=== PATIENT | female | born 1995 | race Hispanic/Latino ===

== ENCOUNTER 2017-11-19 | Emergency (ER) | payer OTHER ==
--- NOTE | 2017-11-19 09:21 | ER ---
Nurse's Notes [facility] Name: Melissa Jacobson Age: 22 yrs Sex: Female : 1995 Arrival Date: 11/19/2017 Time: 08:55 Bed 20 Private MD: Diagnosis: Unspecified otitis externa, bilateral;Otitis media, unspecified, bilateral Presentation: 11/19 09:00 Presenting complaint: Patient states: bilateral ear pain x 5 days. Pt is currently ss taking oral antibiotics and ear drops to treat infection. pt reports that symptoms have not improved. Transition of care: patient was not received from another setting of care. Onset of symptoms was November 15, 2017. Care prior to arrival: None. 09:00 Method Of Arrival: Ambulatory ss 09:00 Acuity: FLAVIO 5 ss Historical: - Allergies: 09:02 No Known Allergies; ss - PMHx: 09:02 None; ss - PSHx: 09:02 None; ss - Immunization history:: Adult Immunizations up to date. - Social history:: Smoking status: Patient/guardian denies using tobacco. Screenin:15 Abuse screen: Denies threats or abuse. Denies injuries from another. Nutritional hb screening: No deficits noted. Tuberculosis screening: No symptoms or risk factors identified. Fall Risk None identified. Assessment: 09:15 General: Appears in no apparent distress. Behavior is calm, cooperative. Pain: Pain hb currently is 7 out of 10 on a pain scale. Neuro: Level of Consciousness is awake, alert, obeys commands, Oriented to person, place, time, situation. Cardiovascular: Capillary refill < 3 seconds Patient's skin is warm and dry. Respiratory: Airway is patent Respiratory effort is even, unlabored, Respiratory pattern is regular, symmetrical. EENT: Reports pain since bilateral ears. Vital Signs: 09:02 BP 137 / 90; Pulse 89; Resp 16; Pulse Ox 100% on R/A; Weight 117.93 kg; Height 5 ft. 4 ss in. (162.56 cm); Pain 9/10; 09:09 BP 139 / 79; Pulse 77; Resp 16; Temp 97.9(O); Pulse Ox 98% on R/A; mh5 09:02 Body Mass Index 44.63 (117.93 kg, 162.56 cm) ss ED Course: 08:55 Patient arrived in ED. as 09:00 Darcy Jones FNP-C [facility]. kb 09:00 Pedrito Tenorio MD is Attending Physician. kb 09:01 Triage completed. ss 09:02 Arm band placed on right wrist. ss 09:04 Tavia Flores, RN is Primary Nurse. hb 09:10 Patient has correct armband on for positive identification. Bed in low position. Call hb light in reach. Side rails up X 1. 09:29 No provider procedures requiring assistance completed. Patient did not have IV access hb during this emergency room visit. Administered Medications: No medications were administered Outcome: :20 Discharge ordered by . kb 09:29 Discharged to home ambulatory, with family. hb 09:29 Condition: stable 09:29 Discharge instructions given to patient, Instructed on discharge instructions, follow up and referral plans. medication usage, Demonstrated understanding of instructions, follow-up care, medications, Prescriptions given X 2. 09:29 Patient left the ED. hb Signatures: Darcy Jones FNP-C FNP-Ckb Martinez, Amelia as Smirch, Shelby, RN RN Tavia Flores, RN RN Julianna Hillman [facility]
--- NOTE | 2017-11-19 09:21 | EDPHYS ---
Physician Documentation [facility] Name: Melissa Jacobson Age: 22 yrs Sex: Female : 1995 Arrival Date: 11/19/2017 Time: 08:55 Bed 20 Private MD: ED Physician Pedrito Tenorio HPI: 11/19 09:16 This 22 yrs old Female presents to ER via Ambulatory with complaints of Ear kb Pain. 09:16 The patient presents with drainage, that is purulent, pain, moderate. The complaints kb affect the right ear and left ear. Onset: The symptoms/episode began/occurred 6 day(s) ago. Modifying factors: The symptoms are alleviated by nothing, the symptoms are aggravated by touching. Associated signs and symptoms: The patient has no apparent associated signs or symptoms. Severity of symptoms: At their worst the symptoms were moderate in the emergency department the symptoms are unchanged. The patient has not experienced similar symptoms in the past. The patient has been recently seen at an urgent care, this week, for similar complaints, was given a prescription for antibiotics. Pt c/o ear pain that started last weekend, started amoxicillin that her mom had at home on Wednesday. Went to urgent care on Wednesday and given ear drops. Comes in today because the pain has persisted. . Historical: - Allergies: 09:02 No Known Allergies; ss - PMHx: 09:02 None; ss - PSHx: 09:02 None; ss - Immunization history:: Adult Immunizations up to date. - Social history:: Smoking status: Patient/guardian denies using tobacco. ROS: 09:16 Constitutional: Negative for fever, chills, and weight loss, Cardiovascular: Negative kb for chest pain, palpitations, and edema, Respiratory: Negative for shortness of breath, cough, wheezing, and pleuritic chest pain, Abdomen/GI: Negative for abdominal pain, nausea, vomiting, diarrhea, and constipation, Back: Negative for injury and pain, : Negative for injury, bleeding, discharge, and swelling, MS/Extremity: Negative for injury and deformity, Skin: Negative for injury, rash, and discoloration, Neuro: Negative for headache, weakness, numbness, tingling, and seizure. 09:16 ENT: Positive for drainage from ear(s), ear pain. Exam: 09:16 Constitutional: This is a well developed, well nourished patient who is awake, alert, kb and in no acute distress. Head/Face: Normocephalic, atraumatic. Neck: Trachea midline, no thyromegaly or masses palpated, and no cervical lymphadenopathy. Supple, full range of motion without nuchal rigidity, or vertebral point tenderness. No Meningismus. Chest/axilla: Normal chest wall appearance and motion. Nontender with no deformity. No lesions are appreciated. Cardiovascular: Regular rate and rhythm with a normal S1 and S2. No gallops, murmurs, or rubs. Normal PMI, no JVD. No pulse deficits. Respiratory: Lungs have equal breath sounds bilaterally, clear to auscultation and percussion. No rales, rhonchi or wheezes noted. No increased work of breathing, no retractions or nasal flaring. Abdomen/GI: Soft, non-tender, with normal bowel sounds. No distension or tympany. No guarding or rebound. No evidence of tenderness throughout. Skin: Warm, dry with normal turgor. Normal color with no rashes, no lesions, and no evidence of cellulitis. MS/ Extremity: Pulses equal, no cyanosis. Neurovascular intact. Full, normal range of motion. Neuro: Awake and alert, GCS 15, oriented to person, place, time, and situation. Cranial nerves II-XII grossly intact. Motor strength 5/5 in all extremities. Sensory grossly intact. Cerebellar exam normal. Normal gait. 09:16 ENT: External ear(s): are unremarkable, Ear canal(s): purulent discharge, that is minimal, that is moderate, bilaterally, swelling, that is minimal, bilaterally, TM's: bulging, bilaterally. Vital Signs: 09:02 BP 137 / 90; Pulse 89; Resp 16; Pulse Ox 100% on R/A; Weight 117.93 kg; Height 5 ft. 4 ss in. (162.56 cm); Pain 9/10; 09:09 BP 139 / 79; Pulse 77; Resp 16; Temp 97.9(O); Pulse Ox 98% on R/A; mh5 09:02 Body Mass Index 44.63 (117.93 kg, 162.56 cm) ss MDM: 09:04 Patient medically screened. kb 09:19 Data reviewed: vital signs, nurses notes. Data interpreted: Pulse oximetry: on room air magdi is 98 %. Interpretation: normal. Counseling: I had a detailed discussion with the patient and/or guardian regarding: the historical points, exam findings, and any diagnostic results supporting the discharge/admit diagnosis, the need for outpatient follow up, an ENT specialist, to return to the emergency department if symptoms worsen or persist or if there are any questions or concerns that arise at home. Administered Medications: No medications were administered Disposition: 10:57 Co-signature as Attending Physician, Pedrito Tenorio MD. rn Disposition: 11/19/17 09:20 Discharged to Home. Impression: Unspecified otitis externa, bilateral, Otitis media, unspecified, bilateral. - Condition is Stable. - Discharge Instructions: Ear Drops, Adult, Otitis Externa, [id number], Otitis Media, Adult, [id number]. - Prescriptions for Augmentin 875- 125 mg Oral Tablet - take 1 tablet by ORAL route every 12 hours for 7 days; 14 tablet. Ciprodex 0.3- 0.1 % Otic Drops, Suspension - instill 4 drop by OTIC route every 12 hours for 7 days , for ears ONLY; 1 Container. - Medication Reconciliation Form, Thank You Letter, Antibiotic Education, Prescription Opioid Use form. - Follow up: Emergency Department; When: As needed; Reason: Worsening of condition. Follow up: Private Physician; When: 2 - 3 days; Reason: Recheck today's complaints, Continuance of care, Re-evaluation by your physician. Signatures: Darcy Jones, HEADER SETUP OPERATOR-C HEADER SETUP OPERATOR-Ckb Pedrito Tenorio MD MD rn Smirch, Shelby, RN RN Tavia Flores RN RN
== END 2017-11-19 09:29 | disposition home or self-care (01) ==
CPT/HCPCS: 99282

== ENCOUNTER 2020-01-09 23:42 | Emergency (ER) | payer BC, OTHER ==
--- NOTE | 2020-01-10 00:22 | EDPHYS ---
Physician Documentation [facility] Name: Melissa Jacobson Age: 24 yrs Sex: Female : 1995 Arrival Date: 01/09/2020 Time: 23:45 Bed 24 Private MD: ED Physician Pedrito Tenorio HPI: 01/08 23:53 This 24 yrs old Female presents to ER via Ambulatory with complaints of Ankle rn Injury. 23:53 The patient presents with an injury, pain. The complaints affect the left ankle. Onset: rn The symptoms/episode began/occurred just prior to arrival. Modifying factors: The symptoms are alleviated by nothing, the symptoms are aggravated by weight bearing, movement. Severity of symptoms: At their worst the symptoms were mild, in the emergency department the symptoms are unchanged. The patient has not experienced similar symptoms in the past. Reports walking, ankle turned inward, reports pain to lateral malleolus and lateral edge of left foot, no other injuries, able to walk on it but hurts. . 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 - Social history:: Smoking status: Patient denies any tobacco usage or history of. - Family history:: not pertinent. - Hospitalizations: : No recent hospitalization is reported. ROS: 23:53 MS/Extremity: + left ankle and foot injury and pain Neuro: Negative for rn weakness/numbness of extremity Exam: 23:53 Constitutional: Overweight female, ambulatory to room without assistance or difficulty rn MS/ Extremity: Pulses equal, no cyanosis. Neurovascular intact. + mild tenderness lateral left malleolus and tenderness along lateral edge of foot, no gross deformity or ecchymosis, no open wounds. Vital Signs: 23:50 BP 132 / 77; Pulse 102; Resp 18; Temp 97.7; Pulse Ox 100% on R/A; Weight 111.13 kg (R); sg Height 5 ft. 4 in. (162.56 cm); Pain 8/10; 23:50 Body Mass Index 42.05 (111.13 kg, 162.56 cm) sg MDM: 23:47 Patient medically screened. rn 01/09 00:19 Differential diagnosis: fracture, sprain. Data reviewed: vital signs, nurses notes, rn radiologic studies, plain films, and as a result, I will discharge patient. Test interpretation: by ED physician or midlevel provider: plain radiologic studies, Xrays of left foot and ankle neg for fracture/dislocation. Counseling: I had a detailed discussion with the patient and/or guardian regarding: the historical points, exam findings, and any diagnostic results supporting the discharge/admit diagnosis, radiology results, the need for outpatient follow up, to return to the emergency department if symptoms worsen or persist or if there are any questions or concerns that arise at home. Special discussion: I discussed with the patient/guardian in detail that at this point there is no indication for admission to the hospital. It is understood, however, that if the symptoms persist or worsen the patient needs to return immediately for re-evaluation. 01/08 23:53 Order name: XRAY Ankle LEFT 3 view rn 01/08 23:53 Order name: XRAY Foot LEFT 3 View rn Administered Medications: No medications were administered Disposition: 01/10/20 00:21 Discharged to Home. Impression: Sprain of ankle, Other sprain of left foot. - Condition is Stable. - Discharge Instructions: Ankle Sprain, Foot Sprain. - Medication Reconciliation Form, Thank You Letter, Antibiotic Education, Prescription Opioid Use form. - Follow up: Private Physician; When: As needed; Reason: Recheck today's complaints, Re-evaluation by your physician. - Problem is new. - Symptoms have improved. Signatures: Dispatcher [employer] EDMS Farhan Potter RN RN sg Nieto, Roman, MD MD rn Stewart, Lisa, RN RN ls4 Corrections: (The following items were deleted from the chart) 00:50 00:21 01/10/2020 00:21 Discharged to Home. Impression: Sprain of ankle; Other sprain of ls4 left foot. Condition is Stable. Forms are Medication Reconciliation Form, Thank You Letter, Antibiotic Education, Prescription Opioid Use. Follow up: Private Physician; When: As needed; Reason: Recheck today's complaints, Re-evaluation by your physician. Problem is new. Symptoms have improved. rn
--- NOTE | 2020-01-10 00:22 | ER ---
Nurse's Notes [facility] Name: Melissa Jacobson Age: 24 yrs Sex: Female : 1995 Arrival Date: 01/09/2020 Time: 23:45 Bed 24 Private MD: Diagnosis: Sprain of ankle;Other sprain of left foot Presentation: 01/08 23:50 Chief complaint: Patient states: I was walking about an hour or two ago when I twisted sg my left ankle. Denies any other pain or injury at this time. Coronavirus screen: Proceed with normal triage. Ebola Screen: Patient negative for fever greater than or equal to 101.5 degrees Fahrenheit, and additional compatible Ebola Virus Disease symptoms Patient denies exposure to infectious person. Patient denies travel to an Ebola-affected area in the 21 days before illness onset. No symptoms or risks identified at this time. Initial Sepsis Screen: Does the patient meet any 2 criteria? HR > 90 bpm. Does the patient have a suspected source of infection? No. Patient's initial sepsis screen is negative. Risk Assessment: Do you want to hurt yourself or someone else? Patient reports no desire to harm self or others. Onset of symptoms was January 09, 2020. 23:50 Method Of Arrival: Ambulatory 23:50 Acuity: FLAVIO 4 sg Triage Assessment: 01/09 00:19 General: Appears in no apparent distress. uncomfortable, Behavior is calm, cooperative. ls4 Pain: Complains of pain in left lateral ankle Pain currently is 8 out of 10 on a pain scale. Quality of pain is described as aching, throbbing, Pain began suddenly. Neuro: No deficits noted. Cardiovascular: No deficits noted. Respiratory: No deficits noted. Musculoskeletal: Circulation, motion, and sensation intact. Capillary refill < 3 seconds, Range of motion: limited in left ankle Swelling present in left lateral ankle. 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 - Social history:: Smoking status: Patient denies any tobacco usage or history of. - Family history:: not pertinent. - Hospitalizations: : No recent hospitalization is reported. Screenin/13 00:23 Abuse screen: Denies threats or abuse. Denies injuries from another. Nutritional ls4 screening: No deficits noted. Tuberculosis screening: No symptoms or risk factors identified. Fall Risk None identified. Assessment: 00:23 General: Appears in no apparent distress. uncomfortable, Behavior is calm, cooperative. ls4 Vital Signs: 01/08 23:50 BP 132 / 77; Pulse 102; Resp 18; Temp 97.7; Pulse Ox 100% on R/A; Weight 111.13 kg (R); sg Height 5 ft. 4 in. (162.56 cm); Pain 8/10; 23:50 Body Mass Index 42.05 (111.13 kg, 162.56 cm) ED Course: 23:45 Patient arrived in ED. cl3 23:47 Pedrito Tenorio MD is Attending Physician. rn 23:50 Arm band placed on. sg 23:51 Triage completed. 01/09 00:16 Patricia Vargas, RN is Primary Nurse. ls4 00:23 Patient has correct armband on for positive identification. Bed in low position. Call ls4 light in reach. Side rails up X 1. Pulse ox on. NIBP on. Verbal reassurance given. 00:24 XRAY Ankle LEFT 3 view In Process Unspecified. EDMS 00:24 No provider procedures requiring assistance completed. Patient did not have IV access ls4 during this emergency room visit. 00:25 XRAY Foot LEFT 3 View In Process Unspecified. EDMS Administered Medications: No medications were administered Outcome: 00:21 Discharge ordered by . rn 00:50 Patient left the ED. ls4 00:50 Discharged to home ambulatory. ls4 00:50 Condition: good 00:50 Discharge instructions given to patient, Instructed on discharge instructions, follow up and referral plans. safety practices, Demonstrated understanding of instructions, follow-up care, medications. Signatures: Dispatcher [employer] EDMS Farhan Potter RN RN Pedrito Tenorio MD MD rn Stewart, Lisa, RN RN ls4 Nilay Vaughan cl3
[2020-01-10 00:56] VITALS: BP 132/77; TEMP 97.7; O2SAT 100
--- NOTE | 2020-01-10 06:58 | RAD REPORT ---
EXAM DESCRIPTION: RAD - Ankle Left 3 View -01/10/2020 12:24 am CLINICAL HISTORY: Left ankle pain FINDINGS: No fracture or dislocation is seen.
--- NOTE | 2020-01-10 08:03 | RAD REPORT ---
EXAM DESCRIPTION: RAD - Foot Left 3 View - 01/10/2020 12:24 am CLINICAL HISTORY: Left Foot pain FINDINGS: No fracture or dislocation is seen.
== END 2020-01-10 00:50 | disposition home or self-care (01) ==
LOC: ER 23:42
DX: S93.492A Sprain of other ligament of left ankle, initial encounter (principal); X58.XXXA Exposure to other specified factors, initial encounter; Y93.01 Activity, walking, marching and hiking; Y92.9 Unspecified place or not applicable
CPT/HCPCS: 99283

== ENCOUNTER 2020-05-13 13:22 | Emergency (ER) | payer BC ==
--- OUTSIDE RECORDS SUMMARY | 2020-05-13 13:24 | XMS REPORT | Summary of Care ---
:1995 Author Organization [facility] Address [address] [place] [address] Care Team Providers Name Role Phone Rafy Turner MD Primary Care Provider Unavailable Reason for Visit Reason Comments Exposure covid19, pt reports loss of smell sensation Cough Sore Throat Other no smell or taste Headache Encounter Details Date Type Department Care Team Description 02/23/[address] [facility] Family Jessi Smith, FABIO [address] [place] [address] [phone] Loss of smell (Primary Dx); [place] [id number], Acute Care Clinic Exposure to Covid-19 Virus; [address] [place] [address] [phone] Allergies No Known Allergiesdocumented as of this encounter (statuses as of 02/23/2020) Medications No known medicationsdocumented as of this encounter (statuses as of 02/23/2020) Active Problems No known active problemsdocumented as of this encounter (statuses as of 02/23/2020) Social History Tobacco Use Types Packs/Day Years Used Date Never Smoker Smokeless Tobacco: Never Used Sex Assigned at Date Recorded Not on file Job Start Date Occupation Industry Not on file Not on file Not on file Travel History Travel Start Travel End No recent travel history available. COVID-19 Exposure Response Date Recorded In the last month, have you been in contact with Yes 02/23/2020 9:49 AM CDT someone who was confirmed or suspected to have Coronavirus / COVID-19? documented as of this encounter Last Filed Vital Signs Vital Sign Reading Time Taken Comments Blood Pressure 146/96 02/23/2020 9:58 AM CDT Pulse 114 02/23/2020 9:58 AM CDT Temperature 36.9 C (98.5 F) 02/23/2020 9:56 AM CDT Respiratory Rate 18 02/23/2020 9:56 AM CDT Oxygen Saturation 99% 02/23/2020 9:56 AM CDT Inhaled Oxygen Concentration - - Weight 108.9 kg (240 lb) 02/23/2020 9:56 AM CDT Height 162.6 cm (5' 4") 02/23/2020 9:56 AM CDT Body Mass Index 41.2 02/23/2020 9:56 AM CDT documented in this encounter Progress Notes Radhika Oscar, FABIO - 02/23/2020 10:20 AM CDT COVID-19 Screening Clinic: [facility] Patient Name: Melissa Jacobson Date of : 1995 24 year old Primary Care Physician: Rafy Turner During this visit: Full PPE was used, mask, face shield, gown, and gloves Chief Complaint Chief Complaint Patient presents with Exposure covid19, pt reports loss of smell sensation Cough Sore Throat Other no smell or taste Headache HPI 24 yr old female who presents to COVID clinic for testing. Pt c/o cough onset last night ago. Pt reports associated symptoms of sore throat headache, nasal congestion loss of smell and taste. Pt deniesany travel in the last 12- 16 weeks. Pt denies exposure to sick contacts. Pt denies exposure to persons with known COVID infection. Pt reports she/he has not been tested for COVID previously. 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 Past Medical History / Immunizations No past medical history on file. Past Surgical History No past surgical history on file. Allergies No Known Allergies Review of Systems Review of Systems Constitutional: Negative for appetite change, chills and fever. HENT: Positive for sore throat. Negative for congestion and rhinorrhea. Respiratory: Positive for cough. Negative for chest tightness and shortness of breath. Cardiovascular: Negative for chest pain. Gastrointestinal: Negative for nausea and vomiting. Musculoskeletal: Negative for myalgias. Neurological: Positive for headaches. All other systems reviewed and are negative. Sick Contacts: contacts with similar symptoms - no Physical Exam BP (!) 146/96 | Pulse 114 | Temp 36.9 C (98.5 F) | Resp 18 | Ht 5' 4" (1.626 m) | Wt 240 lb(108.9 kg) | SpO2 99% | BMI 41.20 kg/m Physical Exam Constitutional: She is oriented to person, place, and time. Vital signs are normal. She appears well-developed and well-nourished. She is cooperative. Non- toxic appearance. She does not have a sickly appearance. She does not appear ill. No distress. HENT: Right Ear: Hearing, tympanic membrane, external ear and ear canal normal. Left Ear: Hearing, tympanic membrane, external ear and ear canal normal. Nose: Mucosal edema present. Right sinus exhibits no maxillary sinus tenderness and no frontal sinustenderness. Left sinus exhibits no maxillary sinus tenderness and no frontal sinus tenderness. Mouth/Throat: Uvula is midline, oropharynx is clear and moist and mucous membranes are normal. No oropharyngeal exudate or posterior oropharyngeal erythema. Tonsils are 3+ on the right. Tonsils are 3+ on the left. No tonsillar exudate. Eyes: Pupils are equal, round, and reactive to light. Conjunctivae and EOM are normal. Neck: Normal range of motion. Neck supple. Cardiovascular: Normal rate. Pulmonary/Chest: Effort normal and breath sounds normal. No accessory muscle usage. No apnea, no tachypnea and no bradypnea. No respiratory distress. She has no decreased breath sounds. She has no wheezes. She has no rhonchi. She has no rales. She exhibits no tenderness. Musculoskeletal: Normal range of motion. Neurological: She is alert and oriented to person, place, and time. Skin: Skin is warm and dry. Capillary refill takes less than 2 seconds. No rash noted. She is not diaphoretic. Psychiatric: She has a normal mood and affect. Her behavior is normal. Judgment and thought content normal. Nursing note and vitals reviewed. No final results containing an impression from the past 2 days were found. No results found for this or any previous visit. Labs No results found for this or any previous visit (from the past 24 hour(s)). No results found. Orders and Treatments Orders Placed This Encounter Procedures COVID-19 (PCR MOLECULAR TESTING) POCT GRP A STREP (MOLECULAR) No outpatient encounter medications on file as of 02/23/2020. No results found for this visit on 02/23/20. Diagnosis Patient well appearing, NAD noted on exam Patient speaking in complete sentences on exam. Physical exam otherwise unremarkable Vital signs WNL Melissa was seen today for exposure, cough, sore throat, other and headache. Diagnoses and all orders for this visit: Loss of smell - COVID-19 (PCR MOLECULAR TESTING); Future - COVID-19 (PCR MOLECULAR TESTING) Exposure to Covid-19 Virus - COVID-19 (PCR MOLECULAR TESTING); Future - COVID-19 (PCR MOLECULAR TESTING) Sore throat - POCT GRP A STREP (MOLECULAR) Disposition & Follow Up - Discussed likely viral diagnosis and treatment plan with pt. - pt advised on frequent effective handwashing - pt advised to increase fluid intake - advised to have the pt take OTC to treat symptoms. - Pt advised to administer Tylenol as per label recommendation as needed for pain or fever - AVS and Written/handout materials appropriate to problem and teaching provided. - advised to go to the nearest Emergency Department sooner for any new, worsening, persistent, or concerning symptoms - Patient verbalized understanding of all instructions EDUCATION: Handouts given: Patient educated on plan of care for visit, swabbing technique,risks and benefits of test and lengthof time to receive results. Verbal consent obtained to perform test. CDC Fact Sheet for patients nCoV Diagnostic Panel dated 11/12/2019 provided. "What to do if you are sick with COVID-19" CDC information guide reviewed with the patient and handout given to patient Education given to self quarantine until results are back. Will notify patient with results. Patient states understanding and all questions answered. Plan of care, goals and medications discussed with patient. Patient voices understanding. Barriers to care: none Ability to manage care: good This visit did not involve counseling and coordination that comprised more than 50% of the visit time. FABIO Sharma 02/23/2020 10:06 AM documented in this encounter Plan of Treatment Name Type Priority Associated Diagnoses Order S chedule COVID-19 (PCR MOLECULAR LAB Routine Loss of smell Expected: 02/23/2020, TESTING) Exposure to Covid-19 Expires : 02/22/2021 Virus Health Maintenance Due Date Last Done Comments VARICELLA VACCINES (1 of 2 - 2-dose 1998 childhood series) MENINGOCOCCAL B VACCINES (1 of 2 - 2007 Risk Bexsero 2-dose series) DTaP,Tdap,and Td Vaccines (1 - 2008 Tdap) HPV VACCINES (1 - Female 2-dose 2008 series) Depression Screening 2009 CHLAMYDIA SCREENING 2013 PAP SMEAR 2018 INFLUENZA VACCINE (Season Ended) 2020 MENINGOCOCCAL VACCINE Aged Out No longer eligible based on patient's age to complete this topic PNEUMOCOCCAL 0-64 YEARS COMBINED Aged Out No longer eligible based on SERIES patient's age to complete this topic documented as of this encounter Procedures Procedure Name Priority Date/Time Associated Diagnosis Comme nts POCT GRP A STREP Routine 02/23/2020 Sore throat Results for this (MOLECULAR) procedure are i n the results section . documented in this encounter Results POCT GRP A STREP (MOLECULAR) (02/23/2020) Pathologist Sig nature POCT GP A STREP neg Negative - Negative Specimen Swab - THROAT documented in this encounter Visit Diagnoses Diagnosis Loss of smell - Primary Disturbances of sensation of smell and t aste Exposure to Covid-19 Virus Sore throat Acute pharyngitis documented in this encounter Insurance Payer Benefit Plan Subscriber ID Effective Dates Phone Address Type / Group BCBS OF [facility] [id number] 2018-Prese [phone] [address] [place] [id number] [place] [address] documented as of this encounter
--- OUTSIDE RECORDS SUMMARY | 2020-05-13 13:24 | XMS REPORT | Continuity of Care Document ---
:1995 Author Organization [facility] t Address [address] [place] [address] Care Team Providers Name Role Phone Mitesh Mulligan Attending Clinician Pob1, Care Clinic Attending Clinician Unavailable Provider, Urgent Care Attending Clinician Unavailable Problems This patient has no known problems. Allergies, Adverse Reactions, Alerts This patient has no known allergies or adverse reactions. Medications This patient has no known medications. Procedures This patient has no known procedures. Encounters Start End Encounter Admission Attending Care Care Encounter Source Date/Time Date/Time Type Type Clinicians Facility Department ID 2020-02-25 2020-02-25 Telephone HOLLY Arias [id number] 00:00:00 00:00:00 Claritza TATE [id number] [facility] [id number] 2020-02-23 2020-02-23 Urgent Pob1, Acute [facility] [id number] 09:48:47 10:24:57 Care [facility] [id number] [place] [id number] Professio [phone] nal [address] 2020-02-01 2020-02-02 Urgent Provider, [facility] [id number] 15:19:08 09:58:50 Care [facility] Health [id number] Care [place] [id number] Professio [phone] nal [address] Results This patient has no known results.
--- OUTSIDE RECORDS SUMMARY | 2020-05-13 13:24 | XMS REPORT | Summary of Care ---
:1995 Author Organization [facility] Address [address] [place] [address] Care Team Providers Name Role Phone Rafy Turner MD Primary Care Provider Unavailable Reason for Visit Reason Comments Results COVID-19 Result notification Encounter Details Date Type Department Care Team Description 02/25/2020 Telephone [facility] Claritza Arias PA Results (COVID-[address] [place] [address] D R Result notification) [place] [address] [phone] Allergies No Known Allergiesdocumented as of this encounter (statuses as of 02/25/2020) Medications No known medicationsdocumented as of this encounter (statuses as of 02/25/2020) Active Problems No known active problemsdocumented as of this encounter (statuses as of 02/25/2020) Social History Tobacco Use Types Packs/Day Years [...] of this encounter Last Filed Vital Signs Not on filedocumented in this encounter Plan of Treatment Health Maintenance Due Date Last Done Comments [...] this topic documented as of this encounter Results Not on filedocumented in this encounter Additional Health Concerns Infection Onset Date Last Indicated Resolved Time COVID-19 Confirmed 02/25/2020 02/25/2020 documented as of this encounter Insurance Payer Benefit Plan Subscriber ID Effective Dates Phone Address Type / Group BCBS OF [facility] [id number] 2018-Prese [phone] [address] PPO/POS [facility] [id number] [place] [address] documented as of this encounter
--- NOTE | 2020-05-13 14:24 | EDPHYS ---
Physician Documentation [facility] Name: Melissa Jacobson Age: 24 yrs Sex: Female : 1995 Arrival Date: 05/13/2020 Time: 13:24 Bed 6 Private MD: Bhaskar Foss HPI: 05/13 13:41 This 24 yrs old Female presents to ER via Ambulatory with complaints of pm1 Spitting up blood. 13:41 Onset: The symptoms/episode began/occurred today. Associated signs and symptoms: pm1 Pertinent positives: post nasal drip. The patient has not experienced similar symptoms in the past. The patient has not recently seen a physician. Patient with a history of frequent nose bleeds. Patient reports sensation of post nasal drip sensation on the left side. 4 times she would clear her throat and spit up some blood in spit. Her employer sent her here for evalution. 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 - Social history:: Smoking status: Patient denies any tobacco usage or history of. ROS: 13:41 Constitutional: Negative for fever, chills, and weight loss, Eyes: Negative for injury, pm1 pain, redness, and discharge. 13:41 Neck: Negative for injury, pain, and swelling, Cardiovascular: Negative for chest pain, palpitations, and edema. 13:41 Respiratory: Negative for shortness of breath, cough, wheezing, and pleuritic chest pain, Abdomen/GI: Negative for abdominal pain, nausea, vomiting, diarrhea, and constipation, Back: Negative for injury and pain, MS/Extremity: Negative for injury and deformity, Skin: Negative for injury, rash, and discoloration, Neuro: Negative for headache, weakness, numbness, tingling, and seizure. 13:41 ENT: Positive for post nasal drainage, Negative for ear pain, sinus congestion, sinus pain, sore throat. Exam: 13:41 Constitutional: This is a well developed, well nourished patient who is awake, alert, pm1 and in no acute distress. Head/Face: Normocephalic, atraumatic. Eyes: Pupils equal round and reactive to light, extra-ocular motions intact. Lids and lashes normal. Conjunctiva and sclera are non-icteric and not injected. Cornea within normal limits. Periorbital areas with no swelling, redness, or edema. ENT: Nares patent. No nasal discharge, no septal abnormalities noted. Tympanic membranes are normal and external auditory canals are clear. Oropharynx with no redness, swelling, or masses, exudates, or evidence of obstruction, uvula midline. Mucous membranes moist. Neck: Trachea midline, no thyromegaly or masses palpated, and no cervical lymphadenopathy. Supple, full range of motion without nuchal rigidity, or vertebral point tenderness. No Meningismus. 13:41 Skin: Warm, dry with normal turgor. Normal color with no rashes, no lesions, and no evidence of cellulitis. MS/ Extremity: Pulses equal, no cyanosis. Neurovascular intact. Full, normal range of motion. 13:41 Cardiovascular: Exam negative for acute changes, Rate: normal, Rhythm: regular, Pulses: no pulse deficits are appreciated. 13:41 Respiratory: Exam negative for acute changes, respiratory distress, shortness of breath. 13:41 Neuro: Exam negative for acute changes, Orientation: is normal, Mentation: is normal, Motor: is normal, moves all fours. Vital Signs: 13:36 BP 136 / 84; Pulse 94; Resp 16 S; Temp 97.3(TE); Pulse Ox 100% on R/A; Weight 117.93 kg ca1 (R); Height 5 ft. 4 in. (162.56 cm) (R); Pain 0/10; 13:36 Body Mass Index 44.63 (117.93 kg, 162.56 cm) ca1 MDM: 13:41 Patient medically screened. pm1 14:22 Data reviewed: vital signs. Data interpreted: Pulse oximetry: on room air is 100 %. pm1 Interpretation: normal. Counseling: I had a detailed discussion with the patient and/or guardian regarding: the historical points, exam findings, and any diagnostic results supporting the discharge/admit diagnosis, the need for outpatient follow up, for definitive care, an ENT specialist, to return to the emergency department if symptoms worsen or persist or if there are any questions or concerns that arise at home. Administered Medications: No medications were administered Disposition: 05/14 08:23 Co-signature as Attending Physician, Bhaskar Thomson MD I agree with the assessment and [facility] plan of care. Disposition: 05/13/20 14:23 Discharged to Home. Impression: Epistaxis. - Condition is Stable. - Discharge Instructions: Nosebleed, Adult. - Medication Reconciliation Form, Thank You Letter, Antibiotic Education, Prescription Opioid Use, Work release form form. - Follow up: Emergency Department; When: As needed; Reason: Worsening of condition. Follow up: Private Physician; When: 2 - 3 days; Reason: Recheck today's complaints, Continuance of care, Re-evaluation by your physician. - Problem is new. - Symptoms have improved. Signatures: Bhaskar Thomson MD MD cha Marinas, Patrick, AIRCRAFT DE [employer]ER INSTALLER [employer] INSTALLER pm1 Franck Coon, RN RN jl7 Jennifer Valencia RN RN ca1 Corrections: (The following items were deleted from the chart) 05/13 14:53 14:23 05/13/2020 14:23 Discharged to Home. Impression: Epistaxis. Condition is Stable. jl7 Forms are Medication Reconciliation Form, Thank You Letter, Antibiotic Education, Prescription Opioid Use. Follow up: Emergency Department; When: As needed; Reason: Worsening of condition. Follow up: Private Physician; When: 2 - 3 days; Reason: Recheck today's complaints, Continuance of care, Re-evaluation by your physician. Problem is new. Symptoms have improved. pm1
--- NOTE | 2020-05-13 14:24 | ER ---
Nurse's Notes [facility] Name: Melissa Jacobson Age: 24 yrs Sex: Female : 1995 Arrival Date: 05/13/2020 Time: 13:24 Bed 6 Private MD: Diagnosis: Epistaxis Presentation: 05/13 13:36 Chief complaint: Patient states: Spitting up blood since x 3 since last night. Denies ca1 cough, denies blood with sputum. Denies bleeding gums, tooth cavity. Denies throat pain or difficulty swallowing. Denies nosebleed. Coronavirus screen: Client denies travel out of the [place] in the last 14 days. At this time, the client does not indicate any symptoms associated with coronavirus-19. Ebola Screen: Patient negative for fever greater than or equal to 101.5 degrees Fahrenheit, and additional compatible Ebola Virus Disease symptoms Patient denies exposure to infectious person. Patient denies travel to an Ebola-affected area in the 21 days before illness onset. No symptoms or risks identified at this time. Initial Sepsis Screen: Does the patient meet any 2 criteria? No. Patient's initial sepsis screen is negative. Does the patient have a suspected source of infection? No. Patient's initial sepsis screen is negative. Risk Assessment: Do you want to hurt yourself or someone else? Patient reports no desire to harm self or others. Onset of symptoms was May 13, 2020. 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 - Social history:: Smoking status: Patient denies any tobacco usage or history of. Screenin:00 Abuse screen: Denies threats or abuse. Denies injuries from another. Nutritional jl7 screening: No deficits noted. Tuberculosis screening: No symptoms or risk factors identified. Fall Risk None identified. Assessment: 14:00 General: Appears in no apparent distress. uncomfortable, Behavior is calm, cooperative, jl7 appropriate for age. Pain: Denies pain. Neuro: Level of Consciousness is awake, alert, obeys commands, Oriented to person, place, time, situation. Cardiovascular: Denies chest pain, Patient's skin is warm and dry. Respiratory: Airway is patent Respiratory effort is even, unlabored, Respiratory pattern is regular, symmetrical, Denies shortness of breath. GI: No signs and/or symptoms were reported involving the gastrointestinal system. Patient currently denies abdominal pain, diarrhea, nausea, vomiting. : No signs and/or symptoms were reported regarding the genitourinary system. Denies burning with urination. EENT: Nares are clear bilaterally Oral mucosa is moist. Good dentition noted. Throat is clear is pink. Derm: Skin is pink, warm \T\ dry. Musculoskeletal: No signs and/or symptoms reported regarding the musculoskeletal system. Vital Signs: 13:36 BP 136 / 84; Pulse 94; Resp 16 S; Temp 97.3(TE); Pulse Ox 100% on R/A; Weight 117.93 kg ca1 (R); Height 5 ft. 4 in. (162.56 cm) (R); Pain 0/10; 13:36 Body Mass Index 44.63 (117.93 kg, 162.56 cm) ca1 ED Course: 13:24 Patient arrived in ED. ag5 13:38 Triage completed. ca1 13:39 Arm band placed on right wrist. ca1 13:41 Franck Coon RN is Primary Nurse. jl7 13:41 Primo Arcos NP is PHCP. pm1 13:41 Bhaskar Thomson MD is Attending Physician. pm1 14:00 Patient has correct armband on for positive identification. Bed in low position. Call jl7 light in reach. Side rails up X 1. Warm blanket given. 14:53 No provider procedures requiring assistance completed. Patient did not have IV access jl7 during this emergency room visit. Administered Medications: No medications were administered Outcome: 14:23 Discharge ordered by . pm1 14:53 Discharged to home ambulatory. jl7 14:53 Condition: stable 14:53 Discharge instructions given to patient, Instructed on discharge instructions, follow up and referral plans. Demonstrated understanding of instructions, follow-up care. 14:53 Patient left the ED. jl7 Signatures: Primo Arcos NP SAMPLE HAND pm1 Franck Coon RN RN jl7 Jennifer Valencia, RN RN ca1 Lewis, Bobbi ag5
[2020-05-13 15:34] VITALS: BP 136/84; TEMP 97.3; O2SAT 100
== END 2020-05-13 14:53 | disposition home or self-care (01) ==
LOC: ER 13:22
DX: R04.0 Epistaxis (principal)
CPT/HCPCS: 99281

== ENCOUNTER 2021-07-08 23:55 | Observation (INO) | payer BC ==
[2021-07-09 00:40] LABS: Urine Blood 1+ (Negative); Urine Glucose Negative (Negative); Urine Protein Negative (Negative); Urine Specific Gravity 1.025 (1.005-1.030); Urine pH 6.5 (5.0-7.0)
[2021-07-09 00:47] LABS: Absolute Lymphocytes (CBC) 1.9 K/uL (0.7-4.9); Basophils % 0.6 % (0-1.3); Lymphocytes % 16.7 % (15.3-44.8); MPV 7.9 fL (7.6-11.3); RBC Red Blood Cell Count 4.88 M/uL (3.86-4.86)
[2021-07-09 00:50] LABS: Urine Specific Gravity/Preg 1.025 (1.005-1.030)
[2021-07-09 01:00] LABS: ALT/SGPT 27 U/L (12-78); AST/SGOT 14 U/L (15-37); Albumin 3.1 g/dL (3.4-5.0); Alkaline Phosphatase 109 U/L (45-117); BUN Blood Urea Nitrogen 13 mg/dL (7-18); Bicarbonate 24 mmol/L (21-32); Bilirubin Direct < 0.1 mg/dL (0-0.2); Bilirubin Total 0.2 mg/dL (0.2-1.0); Glucose Level 98 mg/dL (74-106); Lipase 72 U/L (73-393); Potassium 3.5 mmol/L (3.5-5.1); Protein, Total 8.1 g/dL (6.4-8.2); Sodium Level 141 mmol/L (136-145)
[2021-07-09] MEDS ORDERED: MORPHINE 4 MG/ML SYR ONE ×3 (02:10→10:27)
[2021-07-09] MEDS ORDERED: ONDANSETRON 4 MG/2 ML VIAL ONE (02:10)
--- NOTE | 2021-07-09 02:17 | EDPHYS ---
Physician Documentation [facility] Name: Melissa Jacobson Age: 25 yrs Sex: Female : 1995 Arrival Date: 07/08/2021 Time: 23:58 Bed 26 Private MD: ED Physician Brittney Gan HPI: 07/09 02:13 This 25 yrs old Female presents to ER via Ambulatory with complaints of jmm Abdominal Pain. 02:13 The patient presents with abdominal pain. Onset: The symptoms/episode began/occurred jmm today. The symptoms do not radiate. Associated signs and symptoms: Pertinent negatives: fever, vaginal discharge. The symptoms are described as achy. This is a 25-year-old female with no chronic medical conditions presents emerged part with complaints of right lower abdominal pain beginning earlier today. Denies vomiting or diarrhea. Patient has states she did have a sensation that she needed to urinate but was unable to.. 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 - Social history:: Smoking status: Patient denies any tobacco usage or history of. Patient/guardian denies using alcohol, street drugs. ROS: 02:13 Constitutional: Negative for fever, chills, and weight loss, Cardiovascular: Negative jmm for chest pain, palpitations, and edema, Respiratory: Negative for shortness of breath, cough, wheezing, and pleuritic chest pain. 02:13 Abdomen/GI: Positive for abdominal pain. 02:13 All other systems are negative. Exam: 02:13 Constitutional: This is a well developed, well nourished patient who is awake, alert, jmm and in no acute distress. Head/Face: atraumatic. Eyes: EOMI, no conjunctival erythema appreciated ENT: Moist Mucus Membranes Neck: Trachea midline, Supple Chest/axilla: Normal chest wall appearance and motion. Cardiovascular: Regular rate and rhythm. No edema appreciated Respiratory: Normal respirations, no respiratory distress appreciated 02:13 Skin: General appearance color normal MS/ Extremity: Moves all extremities, no obvious deformities appreciated, no edema noted to the lower extremities Neuro: Awake and alert, normal gait Psych: Behavior is normal, Mood is normal, Patient is cooperative and pleasant 02:13 Abdomen/GI: Inspection: abdomen appears normal, Bowel sounds: normal, Palpation: soft, moderate abdominal tenderness, in the right lower quadrant. Vital Signs: 00:11 BP 133 / 76; Pulse 70; Resp 16 S; Temp 98.3(O); Pulse Ox 98% on R/A; Weight 127.01 kg bb (R); Height 5 ft. 4 in. (162.56 cm) (R); Pain 7/10; 02:00 BP 136 / 52; Pulse 87; Resp 18; Pulse Ox 99% on R/A; Pain 8/10; dc2 00:11 Body Mass Index 48.06 (127.01 kg, 162.56 cm) bb MDM: 00:11 Patient medically screened. [facility] 02:14 Data reviewed: vital signs, nurses notes. Counseling: I had a detailed discussion with meghann the patient and/or guardian regarding: the historical points, exam findings, and any diagnostic results supporting the discharge/admit diagnosis, lab results, radiology results, the need for further work-up and treatment in the hospital. ED course: Patient continues to have some right lower quadrant abdominal pain on palpation. I discussed the patient with who will observe the patient.. 07/09 00:12 Order name: Basic Metabolic Panel [facility] 07/09 00:12 Order name: CBC with Diff [facility] 07/09 00:12 Order name: Hepatic Function [facility] 07/09 00:12 Order name: Lipase; Complete Time: 01: [facility] 07/09 00:12 Order name: Basic Metabolic Panel; Complete Time: 01:00 [facility] 07/09 00:12 Order name: CBC with Automated Diff; Complete Time: 01:00 [facility] 07/09 00:13 Order name: Liver (Hepatic) Function; Complete Time: 01:00 [facility] 07/09 00:40 Order name: Urine Dipstick-Ancillary; Complete Time: 00:45 [facility] 07/09 00:41 Order name: Urine --Ancillary (enter results); Complete Time: 01:00 [facility] 07/09 02:20 Order name: SARS-COV-2 RT PCR (Document "Date of Onset" if Symptomatic) [facility] 07/09 02:20 Order name: SARS-COV-2 RT PCR [facility] 07/09 02:25 Order name: CREATININE WHOLE BLOOD [facility] 07/09 02:43 Order name: Basic Metabolic Panel [facility] 07/09 02:43 Order name: Basic Metabolic Panel [facility] 07/09 00:12 Order name: IV Saline Lock; Complete Time: 00:34 [facility] 07/09 00:12 Order name: Labs collected and sent; Complete Time: 00:34 [facility] 07/09 00:12 Order name: Urine Test (obtain specimen); Complete Time: 00:34 [facility] 07/09 00:12 Order name: Urine Dipstick-Ancillary (obtain specimen); Complete Time: 00:34 [facility] 07/09 00:13 Order name: CT Abd/Pelvis - IV Contrast Only [facility] 07/09 01:58 Order name: Pelvic Exam Setup; Complete Time: 02:40 [facility] 07/09 02:43 Order name: NPO; Complete Time: 02:45 [facility] 07/09 02:43 Order name: CBC with Automated Diff [facility] 07/09 02:43 Order name: CBC with Automated Diff [facility] 07/09 02:43 Order name: Lipase [facility] 07/09 02:43 Order name: Lipase [facility] 07/09 02:43 Order name: Liver (Hepatic) Function [facility] 07/09 02:43 Order name: Liver (Hepatic) Function [facility] Administered Medications: 02:11 Drug: Zofran (Ondansetron) 4 mg Route: IVP; Site: right antecubital; dc2 02:45 Follow up: Response: No adverse reaction dc2 02:12 Drug: morphine 4 mg Route: IVP; Site: right antecubital; dc2 02:47 Follow up: Response: No change in condition dc2 Disposition: 07/10 05:47 Co-signature as Attending Physician, Brittney Gan MD I agree with the assessment and sp3 plan of care. Disposition Summary: 07/09/21 02:16 Hospitalization Ordered Hospitalization Status: Observation [facility] Provider: Alexys Espinosa Condition: Stable [facility] Problem: new [facility] Symptoms: are unchanged [facility] Bed/Room Type: Standard [facility] Location: [facility] ER HOLD(07/09/21 02:20) Room Assignment: ERHOLD-(07/09/21 02:20) brittany Diagnosis - Lower abdominal pain, unspecified [facility] Forms: - Medication Reconciliation Form beau - SBAR form meghann Signatures: Dispatcher [employer] EDKerri Camejo RN RN Rafy Mondragon PA PA jmm Ballard, Brenda, RN RN bb Patel, Setul, MD MD sp3 ChelsyGail RN RN dc2 Corrections: (The following items were deleted from the chart) 07/09 02:20 02:16 Telemetry/MedSurg (observation) meghann soto 02:20 02:16 meghann soto
--- NOTE | 2021-07-09 02:17 | ER ---
Nurse's Notes [facility] Name: Melissa Jacobson Age: 25 yrs Sex: Female : 1995 Arrival Date: 07/08/2021 Time: 23:58 Bed 26 Private MD: Diagnosis: Lower abdominal pain, unspecified Presentation: 07/09 00:11 Chief complaint: Patient states: she started having some pelvic pain this afternoon bb which turned into low abdominal pain denies vomiting or diarrhea pain is 2/10 when not moving and 7/10 when moving. Coronavirus screen: At this time, the client does not indicate any symptoms associated with coronavirus-19. Ebola Screen: No symptoms or risks identified at this time. Initial Sepsis Screen: Does the patient meet any 2 criteria? No. Patient's initial sepsis screen is negative. Does the patient have a suspected source of infection? No. Patient's initial sepsis screen is negative. Risk Assessment: Do you want to hurt yourself or someone else? Patient reports no desire to harm self or others. Onset of symptoms was July 08, 2021. 00:11 Method Of Arrival: Ambulatory bb 00:11 Acuity: FLAVIO 3 bb Triage Assessment: 00:15 General: Appears in no apparent distress. obese, well groomed, Behavior is calm, dc2 cooperative. Pain: Complains of pain in lower abdomen that radiates to both sides. Neuro: No deficits noted. Level of Consciousness is awake, alert, obeys commands, Oriented to person, place, time, situation. Respiratory: No deficits noted. Airway is patent Breath sounds are clear bilaterally. GI: Abdomen is non-distended, obese, Bowel sounds present X 4 quads. Reports lower abdominal pain, Patient currently denies nausea, vomiting. : No signs and/or symptoms were reported regarding the genitourinary system. Derm: No deficits noted. No signs and/or symptoms reported regarding the dermatologic system. Skin is intact, is healthy with good turgor. Musculoskeletal: No deficits noted. No signs and/or symptoms reported regarding the musculoskeletal system. 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 - Social history:: Smoking status: Patient denies any tobacco usage or history of. Patient/guardian denies using alcohol, street drugs. Screenin:15 Abuse screen: Denies threats or abuse. Denies injuries from another. Nutritional dc2 screening: No deficits noted. Tuberculosis screening: No symptoms or risk factors identified. Never had TB. Fall Risk None identified. No fall in past 12 months (0 pts). No secondary diagnosis (0 pts). No IV (0 pts). Ambulatory Aid- None/Bed Rest/Nurse Assist (0 pts). Gait- Normal/Bed Rest/Wheelchair (0 pts) Mental Status- Oriented to own ability (0 pts). Total Canales Fall Scale indicates No Risk (0-24 pts). Assessment: 00:15 GI: Abdomen is tender to palpation in lower abdomen PRS 2/10. dc2 00:15 General: Appears in no apparent distress. uncomfortable, obese, Behavior is calm, dc2 cooperative. 00:15 Pain: Complains of pain in right lower quadrant. Neuro: Level of Consciousness is dc2 awake, alert, obeys commands, Oriented to person, place, time, situation. Cardiovascular: No deficits noted. Denies chest pain, shortness of breath, Heart tones present. Respiratory: No deficits noted. Breath sounds are clear bilaterally. the patient has mild shortness of breath. GI: No deficits noted. Bowel sounds present X 4 quads. : No deficits noted. No signs and/or symptoms were reported regarding the genitourinary system. Urine is clear, Denies burning with urination, discharge, pain urinary frequency, urgency. Derm: No deficits noted. No signs and/or symptoms reported regarding the dermatologic system. Skin is intact, is healthy with good turgor. Musculoskeletal: No deficits noted. No signs and/or symptoms reported regarding the musculoskeletal system. 03:49 Reassessment: Pt moved to room 26, report given to Alicja. dc2 Vital Signs: 00:11 BP 133 / 76; Pulse 70; Resp 16 S; Temp 98.3(O); Pulse Ox 98% on R/A; Weight 127.01 kg bb (R); Height 5 ft. 4 in. (162.56 cm) (R); Pain 7/10; 02:00 BP 136 / 52; Pulse 87; Resp 18; Pulse Ox 99% on R/A; Pain 8/10; dc2 00:11 Body Mass Index 48.06 (127.01 kg, 162.56 cm) ED Course: 07/08 23:58 Patient arrived in ED. bp1 07/09 00:03 Rafy Vergara PA is PHCP. [facility] 00:03 Brittney Gan MD is Attending Physician. jmm 00:12 Triage completed. bb 00:12 Arm band placed on Patient placed in an exam room, on a stretcher, on pulse oximetry. bb 00:15 Patient has correct armband on for positive identification. Placed in gown. Bed in low dc2 position. Call light in reach. Side rails up X 1. Pulse ox on. NIBP on. 00:15 Door closed. Lights dimmed. dc2 00:28 Gail Valentino, ARMANDO is Primary Nurse. dc2 00:34 Inserted saline lock: 20 gauge in right antecubital area, using aseptic technique. ds4 Blood collected. 00:[address] via stretcher. dc2 01:[address] back [address]. dc2 01:09 CT Abd/Pelvis - IV Contrast Only In Process Unspecified. EDMS 02:16 Alexys Espinosa MD is Hospitalizing Provider. jmm 02:39 SARS-COV-2 RT PCR Sent. dc2 02:39 SARS-COV-2 RT PCR (Document "Date of Onset" if Symptomatic) Sent. dc2 02:40 Basic Metabolic Panel Sent. dc2 02:40 CBC with Diff Sent. dc2 02:40 Hepatic Function Sent. dc2 02:41 No provider procedures requiring assistance completed. dc2 02:41 IV Flushed right antecubital with 5 ml normal saline. dc2 02:45 Patient admitted, IV remains in place. intact. dc2 Administered Medications: 02:11 Drug: Zofran (Ondansetron) 4 mg Route: IVP; Site: right antecubital; dc2 02:45 Follow up: Response: No adverse reaction dc2 02:12 Drug: morphine 4 mg Route: IVP; Site: right antecubital; dc2 02:47 Follow up: Response: No change in condition dc2 Outcome: 02:16 Decision to Hospitalize by Provider. meghann 03:02 Admitted to Med/surg Other Pt to stay in the ED as an ED Hold. dc2 03:02 Condition: stable 13:26 Patient left the ED. Signatures: Dispatcher [employer] EDMS Rafy Vergara PA PA jmm Ballard, Brenda, RN RN bb Fina Bush RN RN ss Rocky Escamilla Brittany bp1 Charters, Denise, RN RN dc2
[2021-07-09] MEDS ORDERED: ONDANSETRON 4 MG/2 ML VIAL IV PRN (02:42)
[2021-07-09] MEDS ORDERED: ACETAMINOPHEN 500 MG TAB PO PRN (02:42)
[2021-07-09] MEDS ORDERED: D5 0.45 NS 1,000 ML IV ONE ×2 (04:10→11:27)
[2021-07-09] MEDS: D5 0.45 NS 1,000 ML IV SCH ×2 (04:18→11:00)
[2021-07-09 04:49] VITALS: BMI 42.9
[2021-07-09] MEDS: MORPHINE 4 MG/ML SYR IV PRN ×2 (06:16→10:28)
[2021-07-09] MEDS ORDERED: INFLUENZA VACCINE (for 6+ mo) 0.5 ML DOSE IMVAC ONE (08:00)
--- NOTE | 2021-07-09 11:12 | RAD REPORT ---
EXAM DESCRIPTION: CT - Abdomen Pelvis W Contrast - 07/09/2021 6:17 am CLINICAL HISTORY: 25 years, Female, abdominal pain COMPARISON: None. TECHNIQUE: Contrast-enhanced images of the abdomen and pelvis were performed utilizing 5 mm slice th ickness at 5 mm interval reconstruction from the lung bases to the ischial tuberosities after the adm inistration of IV contrast. In addition multiplanar reformats in the coronal and sagittal plane were obtained and reviewed. This exam was performed according to our departmental dose-optimization protocol, which includes auto mated exposure control, adjustment of the mA and/or kV according to patient size and/or use of iterat santa reconstruction technique. FINDINGS: The lung bases demonstrate to be clear. The liver, gallbladder, pancreas, spleen and adrenal glands demonstrate to be unremarkable, no focal lesions are noted. The kidneys demonstrate normal uptake of contrast media. No evidence for nephrolithiasis and/or hydro nephrosis. Grossly the unopacified stomach, small bowel and large bowel demonstrate to be within normal limits. There is no evidence for bowel dilatation/or free air. The appendix is normal. The left site colo n is decompressed The urinary bladder demonstrate to be unremarkable. The uterus demonstrate to be within normal limi ts. There are no adnexal masses. The aorta demonstrate to be normal. There is no retroperitoneal lymphadenopathy. There is no evidence for ascites/or significant abnormal fluid collections. The rest of the soft tissue and bony structures are within normal limits. IMPRESSION: No acute intra-abdominal process. Unremarkable CT scan of the abdomen and pelvis with contrast. Electronically signed by: Craig Pacheco MD 07/09/2021 1:29 AM DATE NIGHT SITTER Due to temporary technical issues with the PACS/Fluency reporting system, reports are being signed by the in house radiologist without review as a courtesy to ensure prompt reporting. The interpreting r adiologist is fully responsible for the content of the report.
[2021-07-09 11:52] VITALS: BP 115/67; TEMP 98.2
--- NOTE | 2021-07-09 13:46 | P.HP ---
Date of Service: 07/09/21 PC: I was asked to see this 25-year-old female in regards to right lower quadrant abdominal pain HPC: This patient had abdominal pain yesterday afternoon around 3-4. Described as being all over her abdomen. Seem to go to her umbilicus then up to the upper part of her abdomen down to the lower right quadrant. No nausea or vomiting. No anorexia. States she has been having regular bowel movements. Finished her period approximately 5 days ago. PSHx: Negative PMHx: Negative Social Hx: No known drug allergies Sys R: No cough, wheeze, shortness of breath. No chest pain or palpitations. Denies any urinary complaints. No vaginal discharge. O/E: Awake alert comfortable at the moment, vital signs are stable HEENT: Within normal limits Chest: Air entry is equal bilaterally Abd: Soft nontender no guarding or rebound [place]: Intact Data: Mildly elevated white count, CT scan was negative Impression: Abdominal pain Plan: This patient was seen last night in the emergency room. She had an unremarkable physical exam initially. After her CT scan was back, she was reassessed and found to have a lot of abdominal tenderness. Her CT scan shows no evidence of any inflammatory process in her abdomen. She states she has a family history where her father apparently was sent home and had to be rushed back to the hospital and an extremis about an hour later and found to have a ruptured appendix. She was admitted for observation and pain control. Today when I examined her I find no signs of any peritonitis. She is asking for food. She has been voiding well. And per her mom she looks like normal. I will discharge the patient at this time. She has been advised to bed rest, Advil/Motrin for pain. Follow-up with her regular doctor or if any problems return to the emergency room for reevaluation.
[2021-07-09 14:42] VITALS: O2SAT 99
--- OUTSIDE RECORDS SUMMARY | 2021-07-12 18:51 | XMS REPORT | Continuity of Care Document ---
:1995 Author Organization [facility] t Address [address] [place] [address] [address]. [address] [place] [address] Care Team Providers Name Role Phone SASHA Primary Care Physician Unavailable Bridgett HOLLY Attending Clinician BRIDGETT Attending Clinician Unavailable DENIS RUIZ Attending Clinician Unavailable Kaleigh CEDEÑO A Attending Clinician Lab, Fam Pob I Attending Clinician Unavailable Mitesh ARIAS Attending Clinician Unavailable FLETCHER Attending Clinician Unavailable Fletcher FURNITURE [employer]SEMBLY SUPERVISOR Attending Clinician Doctor Unassigned, Name Attending Clinician Unavailable Romulo HOLLY, A Attending Clinician Mitesh MORGAN Attending Clinician Unavailable Pob1, Care Clinic Attending Clinician Unavailable Anene FURNITURE ASSEMBLY SUPERVISOR Attending Clinician ANENE Attending Clinician Unavailable Provider, Urgent Care Attending Clinician Unavailable Payers Payer Name Policy Type Policy Number Effective Date [facility] Date [id number]00 Problems Condition Condition Condition Status Onset Resolution Last Treating Co mments Source Name Details Category Date Date Treatment Clinician Date Non-recurr Non-recurr Disease Active U nivers ent acute ent acute 8-20 ity of serous serous 00:00: [place] otitis otitis 00 Medical media of media of Branch right ear right ear Acute ear Acute ear Disease Active Uni vers pain, pain, 8-20 ity of right right 00:00: [place] [address] Medical Branch No known No known Disease Unive rs active active ity of problems problems [facility] Allergies, Adverse Reactions, Alerts Allergy Allergy Status Severity Reaction(s) Onset Inactive Treating Comm ents Source Name Type Date Date Clinician NO KNOWN Drug Active Univers ALLERGIE Class ity of S [facility] Social History Social Habit Start Date Stop Date Quantity Comments Source Exposure to Yes [facility] SARS-CoV-2 (event) Medica l Branch Tobacco use and 2021-04-18 2021-04-18 Never used [facility] exposure 00:00:00 00:00:00 Medical Branch Sex Assigned At [birth year] [facility] 00:00:00 00:00:00 Medical Branch Smoking Status Start Date Stop Date Source Never smoker [facility] Medications Ordered Filled Start Stop Current Ordering Indication Dosage Frequency Signature Comments Components Source Medication Medication Date Date Medication? Clinician (SIG) Name Name amoxicillin Yes [id number] 1{tbl} Take 1 Univers -clavulanat 8-20 tablet by ity of e 00:00: mouth 2 [place] (AUGMENTIN) 00 (two) Medical 875-125 mg times Branch per tablet daily. ibuprofen Yes [id number] 600mg Take 1 Univers 600 mg 8-20 tablet by ity of tablet 00:00: mouth [place] 00 every 6 Medical (six) Branch hours as needed for Pain (scale 4-6). ofloxacin 2020- No [id number] 5[drp] Place 5 Univers 0.3 % otic 6-16 Drops in ity of drops 00:00: 04:59 left ear 2 [place] 00 :00 (two) Medical times Branch daily for 10 days. ibuprofen 2020- No [id number] 600mg Take 1 Univers 600 mg 01-31-12 tablet by ity of tablet 00:00: 04:59 mouth 3 [place] 00 :00 (three) Medical times Branch daily with meals for 7 days. ciprofloxac 2019- 2020- No [id number] 4[drp] Place 4 Univers in-dexameth 01-31 06-12 Drops in ity of asone 00:00: 04:59 left ear 2 [place] (CIPRODEX) 00 :00 (two) Medical 0.3-0.1 % times Branch otic drops daily for 7 days. ibuprofen 2020- No [id number] 600mg Take 1 Univers 600 mg 01-31-12 tablet by ity of tablet 00:00: 04:59 mouth 3 [place] 00 :00 (three) Medical times Branch daily with meals for 7 days. ciprofloxac 2019-2019- No [id number] 4[drp] Place 4 Univers in-dexameth 6-04 06-05 Drops in ity of asone 00:00: 00:00 left ear 2 [place] (CIPRODEX) 00 :00 (two) Medical 0.3-0.1 % times Branch otic drops daily for 7 days. ciprofloxac 2019- 2020- No [id number] 4[drp] Place 4 Univers in-dexameth 6-04 06-04 Drops in ity of asone 00:00: 00:00 left ear 2 [place] (CIPRODEX) 00 :00 (two) Medical 0.3-0.1 % times Branch otic drops daily for 7 days. ciprofloxac 2019-2019- No [id number] 4[drp] Place 4 Univers in-dexameth 6-04 06-04 Drops in ity of asone 00:00: 00:00 left ear 2 [place] (CIPRODEX) 00 :00 (two) Medical 0.3-0.1 % times Branch otic drops daily for 7 days. No known No [facility] No known No [facility] No known No [facility] No known No Univers medications ity [facility] No known No Univers medications ity [facility] No known No Univers medications ity [facility] No known No Univers [facility] No [facility] No Univers [facility] No [facility] No Univers [facility] No known No Univers medications [facility] No known No Univers medications [facility] No known No Univers [facility] No known No Univers medications [facility] Immunizations Ordered Filled Immunization Date Status Comments [facility] e Immunization Name Name SARS-COV-2 COVID-19 2021-04-15 Completed Unive rsity of PFIZER VACCINE 00:00:00 [facility] SARS-COV-2 COVID-19 2021-03-24 Completed Unive rsity of PFIZER VACCINE 00:00:00 [facility] Vital Signs Vital Name Observation Time Observation Value Comments Source Systolic blood 2020-02-23 14:58:00 146 mm[Hg] Univer sity of pressure [place] [facility] Diastolic blood 2020-02-23 14:58:00 96 mm[Hg] Unive rsity of pressure [facility] [place] [facility] Branch Heart rate 2020-02-23 14:58:00 114 /min Universi ty of [facility] Body temperature 2020-02-23 14:56:00 36.94 Tessa Univ ersity of [facility] Branch Respiratory rate 2020-02-23 14:56:00 18 /min Univ ersity of [facility] Branch Body height 2020-02-23 14:56:00 162.6 cm Universi ty of [place] [facility] Body weight 2020-02-23 14:56:00 108.863 kg Universi ty of [place] [facility] BMI 2020-02-23 14:56:00 41.20 kg/m2 Universi ty of [facility] Oxygen saturation in 2020-02-23 14:56:00 99 /min University of Arterial blood by [facility] Pulse oximetry Branch Systolic blood 2020-02-23 14:58:00 146 mm[Hg] Univer sity of pressure [facility] [place] [facility] Branch Diastolic blood 2020-02-23 14:58:00 96 mm[Hg] Unive rsity of pressure [facility] Heart rate 2020-02-23 14:58:00 114 /min Universi ty of [place] [facility] Body temperature 2020-02-23 14:56:00 36.94 Tessa Univ ersity of [facility] [place] [facility] Branch Respiratory rate 2020-02-23 14:56:00 18 /min Univ ersity of [facility] [place] [facility] Branch Body height 2020-02-23 14:56:00 162.6 cm Universi ty of [place] [facility] Body weight 2020-02-23 14:56:00 108.863 kg Universi ty of [place] [facility] BMI 2020-02-23 14:56:00 41.20 kg/m2 Universi ty of [facility] [place] [facility] Branch Oxygen saturation in 2020-02-23 14:56:00 99 /min University of Arterial blood by [facility] Pulse oximetry Branch Systolic blood 2020-02-01 21:03:00 139 mm[Hg] Univer sity of pressure [place] [facility] Diastolic blood 2020-02-01 21:03:00 89 mm[Hg] Unive rsity of pressure [place] [facility] Heart rate 2020-02-01 21:03:00 92 /min Universi ty of [place] [facility] [place] Body temperature 2020-02-01 21:03:00 37.06 Tessa Univ ersity of [place] [facility] Respiratory rate 2020-02-01 21:03:00 17 /min Univ ersity of [place] [facility] Body height 2020-02-01 21:03:00 162.6 cm Universi ty of [place] [facility] Body weight 2020-02-01 21:03:00 106.595 kg Universi ty of [place] [facility] BMI 2020-02-01 21:03:00 40.34 kg/m2 Universi ty of [place] [facility] Oxygen saturation in 2020-02-01 21:03:00 98 /min University of Arterial blood by [facility] Pulse oximetry Branch Systolic blood 2020-02-01 21:03:00 139 mm[Hg] Univer sity of pressure [place] [facility] [place] Diastolic blood 2020-02-01 21:03:00 89 mm[Hg] Unive rsity of pressure [facility] Heart rate 2020-02-01 21:03:00 92 /min Universi ty of [place] [facility] Body temperature 2020-02-01 21:03:00 37.06 Tessa Univ ersity of [place] [facility] Respiratory rate 2020-02-01 21:03:00 17 /min Univ ersity of [place] [facility] [place] Body height 2020-02-01 21:03:00 162.6 cm Universi ty of [place] [facility] Body weight 2020-02-01 21:03:00 106.595 kg Universi ty of [place] [facility] BMI 2020-02-01 21:03:00 40.34 kg/m2 Universi ty of [place] [facility] Oxygen saturation in 2020-02-01 21:03:00 98 /min University of Arterial blood by [facility] Pulse oximetry Branch Procedures Procedure Date / Time Performed Performing Clinician Sour e CONSENT/REFUSAL FOR 2021-02-24 22:08:57 Doctor Unassigned, No [facility] DIAGNOSIS AND Name Medical Branch TREATMENT ASSIGNMENT OF BENEFITS 2021-02-24 22:08:43 Doctor Unassigned, No [facility] Name Medical Branch XR CHEST 2 VW 2020-12-02 14:39:32 [facility] A Medical Branch POCT GRP A STREP 2020-02-23 00:00:00 ChasidyjamilaRadhika montiel [facility] (MOLECULAR) [facility] Encounters Start End Encounter Admission Attending Care Care Encounter Source Date/Time Date/Time Type Type Clinicians Facility Department ID 2021-04-18 2021-04-18 Telemedici [facility] [id number] Univers 17:12:12 17:32:12 ne Visit Lexy Jacobsen [id number] [id number] [phone] [facility] Branch Building 2021-04-18 2021-04-18 Outpatient R BRIDGETT [facility] [id number] Univers 14:00:00 14:00:00 LEXY [id number] [facility] 2021-04-18 2021-04-18 [facility] [id number] Univers 14:00:00 14:00:00 [facility] 2021-04-18 2021-04-18 [facility] [id number] Univers 14:00:00 14:00:00 [facility] 2021-04-15 2021-04-15 [facility]patient [facility] [id number] Univers 15:10:00 15:10:00 [facility] 2021-03-24 2021-03-24 Outpatient [facility] [id number] Univers 15:50:00 15:50:00 [facility] 2021-03-07 2021-03-07 Telephone [facility] [id number] Univers 00:00:00 00:00:00 Claritza Mitesh Povio [id number] i Manuel[place] [id number] [place] as Professio [phone] Id dical nal [address] [place] [address] One 2021-03-07 2021-03-07 [facility] [id number] Univers 00:00:00 00:00:00 Claritza A Health [id number] i ty of [place] [id number] [place] Professio [phone] [address] Office [facility] One 2021-03-07 2021-03-07 Telephone Lab, [facility] [id number] Univers 00:00:00 00:00:00 Fam Pob I Health [id number] ity of [place] [id number] [place] Professio [phone] [address] Office [facility] One 2021-03-05 2021-03-05 Outpatient R [facility] [id number] Univers 16:40:00 16:40:00 [id number] fannie Formerly [facility] 2021-03-05 2021-03-05 Outpatient R KALEIGH [facility] [id number] Univers 16:40:00 16:40:00 CLARITZA greco Formerly [facility] 2021-03-05 2021-03-05 Laboratory Lab, [facility] Fam Pob I [facility] 1.2. [id number] Univers 14:48:22 15:08:22 Only Claritza Arias Health [id number] ity of [place] [id number] [place] Professio [phone] [address] One 2021-02-28 2021-02-28 Outpatient [facility] [id number] Univers 00:00:00 00:00:00 TORRI [id number] ity o f [facility] 2021-02-24 2021-02-24 [facility] [id number] Univers 17:12:55 23:59:00 Encounter Torri [place] [id number] it[id number] [id number] [address] 2021-02-24 2021-02-24 Outpatient [facility] [id number] Univers 17:30:00 17:30:00 TORRI [id number] ity o [facility] 2021-02-24 2021-02-24 Outpatient [facility] [id number] Univers 00:00:00 00:00:00 TORRI byrnes [facility] 2021-02-24 2021-02-24 Orders Doctor HOLLY [id number] Univers 00:00:00 00:00:00 Only Unassigned, LEA [id number] ity of [facility] [id number] [place] as [phone] [facility] 009 Branch 2021-02-19 2021-02-19 Outpatient R [facility] [id number] Univers 16:30:00 16:30:00 TORRI [id number] fannie o [facility] 2021-02-19 2021-02-19 Outpatient [facility] [id number] Univers 16:30:00 16:30:00 TORRI byrnes [facility] 2021-02-19 2021-02-19 Telemedici [facility] 1.2.840.114 [id number] Univers 09:17:36 15:17:21 ne Visit Torri Jacobsen [id number] it[id number] [facility] [phone] [facility] 044 Branch [facility] 2020-12-02 2020-12-02 [facility] 1.2.840.114 [id number] Univers 09:09:55 23:59:00 Encounter Ashley Jacobsen [id number] ity [id number] [phone] [facility] 807 Branch 2020-12-02 2020-12-02 Outpatient [facility] [id number] Univers 09:15:00 09:15:00 ASHLEY [id number] fannie Former[facility] 2020-12-02 2020-12-02 Outpatient R [facility] [id number] Univers 00:00:00 00:00:00 ASHLEY greco [facility] 2020-12-02 2020-12-02 [facility] [id number] Univers 00:00:00 00:00:00 Management Ashley Mitesh Ann-Marie [id number] ity [id number] [phone] [facility] 231 [facility] 2020-09-18 2020-09-18 Outpatient [facility] [id number] Univers 15:00:00 15:00:00 [id number] ity of [facility] 2020-09-18 2020-09-18 [facility]patient [facility] [id number] Univers 15:00:00 15:00:00 CLARITZA bettsangel Formerly [facility] 2020-09-18 2020-09-18 Laboratory Lab, [facility] 1.2. 840.114 [id number] Univers 08:13:46 08:33:46 Only Claritza Arias Health [id number] ity of [place] [id number] [place] Professio [phone] [facility] [address] [facility] 2020-07-10 2020-07-10 Geodetic Engineer Lab, [facility] 1.2. 840.114 [id number] Univers 11:47:22 12:07:22 Visit Claritza Arias Health [id number] ity of [place] [id number] [place] Professio [phone] [address] [facility] 2020-07-10 2020-07-10 Outpatient R [facility] [id number] Univers 11:40:00 11:40:00 [id number] ity Formerly [facility] 2020-07-10 2020-07-10 Outpatient R KALEIGH [facility] [id number] Univers 11:40:00 11:40:00 CLARITZA greco Formerly [facility] 2020-02-25 2020-02-25 Telephone HOLLY Arias .[id number] Univers 00:00:00 00:00:00 Claritza A LEA [id number] i ty of HOSPITAL [id number] [place] as [phone] [address] 2020-02-25 2020-02-25 Telephone HOLLY Arias [id number] 00:00:00 00:00:00 Claritza OTEROY [id number] [facility] [id number] [id number] [facility] 2020-02-23 2020-02-23 Urgent Pob1, [facility] [place] 1. 2.840.114 [id number] [facility] 09:48:47 10:24:57 Care Anenicolle, [place] [id number] ity of [place] [id number] [place] Professio [phone] [address] Office Building [facility] 2020-02-23 2020-02-23 Urgent Pob1, Acute [facility] 1.2.840.114 [id number] 09:48:47 10:24:57 Care Care Clinic Health [id number] [place] [id number] Professio [phone] [place] [address] Office Building [facility] 2020-02-23 2020-02-23 Outpatient R [facility] [id number] Univers 10:20:00 10:20:00 [id number] ity Formerly [facility] 2020-02-23 2020-02-23 Outpatient R FEROZ [facility] [id number] Univers 10:20:00 10:20:00 PARISA ity Formerly [facility] 2020-02-01 2020-02-02 Urgent Provider, [facility] 1.2.840.114 [id number] Univers 15:19:08 09:58:50 Care Claritza Arias Health [id number] ity of [place] [id number] [place] Professio [phone] [address] Office Building [facility] 2020-02-01 2020-02-02 Urgent Provider, [facility] [id number] 15:19:08 09:58:50 Care [facility] [id number] Care [place] [id number] Professio [phone] nal 044 Office Building One 2020-02-01 2020-02-01 Outpatient R KALEIGH, [facility] [id number] Univers 15:40:00 15:40:00 CLARITZA greco Formerly [facility] Results Test Description Test Time Test Comments Results Result Sourc e Comments XR CHEST 2 VW No acute University of cardiopulmonary [place] Med ical 16:26:10 disease. CHEST 2 Branch VIEWS: HISTORY:pain in upper chest with breathing and decreased breath sounds inRLL, also pain in RLL. TECHNIQUE:: ?PA and lateral views of the chest are obtained. FINDINGS: The lungs are clear. The heart size and mediastinal silhouetteare normal. No pleural effusion or pneumothorax is seen. Possibly an old fracture of the right seventh rib laterally. [facility], Radiant Results Inft User - 12/02/2020 11:27 AM CDTCHEST 2 VIEWS:HISTORY:pain in upper chest with breathing and decreased breath sounds inRLL, also pain in RLL.TECHNIQUE:: PA and lateral views of the chest are obtained. FINDINGS: The lungs are clear. The heart size and mediastinal silhouetteare normal. No pleural effusion or pneumothorax is seen.Possibly an old fracture of the right seventh rib laterally.IMPRESSION No acute cardiopulmonary disease. POCT GRP A STREP (MOLECULAR) 2020-02-23 15:36:00 Test Item Value Reference Range Interpretation Comme nts POCT GP A STREP (test code = 40359-8) neg Negative - Negat sanat [facility]
== END 2021-07-09 13:19 | disposition home health service (06) ==
LOC: ER 23:55 → ERHOLD 07-09 03:04
PROVIDERS: ADMIT Surgery; ATTEND Surgery
DX: R10.9 Unspecified abdominal pain (principal); Z20.822 Contact with and (suspected) exposure to COVID-19
CPT/HCPCS: 85025; 80048; 36415; 81025; 82565; 80076; 81003; 83690; 74177; 96375; 96374; 99285; U0003; Q9967; J7799 ×2; J2405; G0378 ×2

== ENCOUNTER 2022-05-25 18:11 | Emergency (ER) | payer BC ==
--- OUTSIDE RECORDS SUMMARY | 2022-05-25 18:34 | XMS REPORT | Continuity of Care Document ---
:1995 Author Organization [facility] t Address [facility] [place] [address] Care Team Providers Name Role Phone LONNY BAEZ Primary Care Physician Unavailable Only, Adc Pob2 Test Attending Clinician Unavailable Baron Ruiz DO Attending Clinician BARON RUIZ Attending Clinician Unavailable Lexy Urias MD Attending Clinician LEXY URIAS Attending Clinician Unavailable Claritza Mulligan Attending Clinician Lab, Adc Fam Pob I Attending Clinician Unavailable CLARITZA FARRIS Attending Clinician Unavailable TORRI BYNUM Attending Clinician Unavailable Torri Vasquez Attending Clinician Doctor Unassigned, [place] Attending Clinician Unavailable Ashley Sebastian MD Attending Clinician [phone] ASHLEY SEBASTIAN Attending Clinician Unavailable Pob1, Acute Care Clinic Attending Clinician Unavailable Parisa Ontiveros Attending Clinician PARISA SMITH Attending Clinician Unavailable Provider, [facility] Attending Clinician Unavailable Raju_P Attending Clinician Unavailable Raju_P Admitting Clinician Unavailable Payers Payer Name Policy Type Policy Number Effective Date Expiration Date Ilda brothers [facility] [id number] 2018 00:00:00 Problems Condition Condition Condition Status Onset Resolution Last Treating Co mments Source Name Details Category Date Date Treatment Clinician Date Non-recurr Non-recurr Disease Active U nivers ent acute ent acute 8-20 ity of serous serous 00:00: [place] otitis otitis 00 Medical media of media of Branch right ear right ear Acute ear Acute ear Disease Active Uni vers pain, pain, 8-20 ity of right right 00:00: [place] 00 [facility] No known No known Disease Unive rs active active ity of problems problems [facility] Allergies, Adverse Reactions, Alerts Allergy Allergy Status Severity Reaction(s) Onset Inactive Treating Comm ents Source Name Type Date Date Clinician NO KNOWN Drug Active Univers ALLERGIE Class ity of S [facility] Social History Social Habit Start Date Stop Date Quantity Comments Source Exposure to 2022-03-06 2022-03-16 Not sure [facility] SARS-CoV-2 00:00:00 08:29:00 [facility] (event) [place] Tobacco use and 2020-02-01 2020-02-01 Smokeless tobacco Un iversity of exposure 00:00:00 00:00:00 non-user [facility] Sex Assigned At [birth year] Universit y of 00:00:00 00:00:00 [facility] Smoking Status Start Date Stop Date Source Never smoked tobacco [facility] Medications Ordered Filled Start Stop Current Ordering Indication Dosage Frequency Signature Comments Components Source Medication Medication Date Date Medication? Clinician (SIG) Name Name amoxicillin Yes [id number] 1{tbl} Take 1 Univers -clavulanat 8-20 tablet by ity of e 00:00: mouth 2 [place] (AUGMENTIN) 00 (two) Medical 875-125 mg times Branch per tablet daily. ibuprofen Yes [id number] 600mg Take 1 Univers 600 mg 8-20 tablet by ity of tablet 00:00: mouth [place] 00 every 6 Medical (six) Branch hours as needed for Pain (scale 4-6). amoxicillin Yes [id number] 1{tbl} Take 1 Univers -clavulanat 8-20 tablet by ity of e 00:00: mouth 2 [place] (AUGMENTIN) 00 (two) Medical 875-125 mg times Branch per tablet daily. ibuprofen Yes [id number] 600mg Take 1 Univers 600 mg 8-20 tablet by ity of tablet 00:00: mouth [place] 00 every 6 Medical (six) Branch hours as needed for Pain (scale 4-6). amoxicillin Yes [id number] 1{tbl} Take 1 Univers -clavulanat 8-20 tablet by ity of e 00:00: mouth 2 [place] (AUGMENTIN) 00 (two) Medical 875-125 mg times Branch per tablet daily. ibuprofen Yes [id number] 600mg Take 1 Univers 600 mg 8-20 tablet by ity of tablet 00:00: mouth [place] 00 every 6 Medical (six) Branch hours as needed for Pain (scale 4-6). amoxicillin Yes [id number] 1{tbl} Take 1 Univers -clavulanat 8-20 tablet by ity of e 00:00: mouth 2 [place] (AUGMENTIN) 00 (two) Medical 875-125 mg times Branch per tablet daily. ibuprofen Yes [id number] 600mg Take 1 Univers 600 mg 8-20 tablet by ity of tablet 00:00: mouth [place] 00 every 6 Medical (six) Branch hours as needed for Pain (scale 4-6). amoxicillin Yes [id number] 1{tbl} Take 1 Univers -clavulanat 8-20 tablet by ity of e 00:00: mouth 2 [place] (AUGMENTIN) 00 (two) Medical 875-125 mg times Branch per tablet daily. ibuprofen Yes [id number] 600mg Take 1 Univers 600 mg 8-20 tablet by ity of tablet 00:00: mouth [place] 00 every 6 Medical (six) Branch hours as needed for Pain (scale 4-6). ofloxacin 2020- No [id number] 5[drp] Place 5 Univers 0.3 % otic 6 06-16 Drops in ity of drops 00:00: 04:59 left ear 2 [place] 00 :00 (two) Medical times Branch daily for 10 days. ibuprofen 2019- 2020- No [id number] 600mg Take 1 Univers 600 mg 01-31 06-12 tablet by ity of tablet 00:00: 04:59 mouth 3 [place] 00 :00 (three) Medical times Branch daily with meals for 7 days. ciprofloxac 2019- 2020- No [id number] 4[drp] Place 4 Univers in-dexameth 01-31-12 Drops in ity of asone 00:00: 04:59 left ear 2 [place] (CIPRODEX) 00 :00 (two) Medical 0.3-0.1 % times Branch otic drops daily for 7 days. ibuprofen 2019-2019- No [id number] 600mg Take 1 Univers 600 mg 01-31 06-12 tablet by ity of tablet 00:00: 04:59 mouth 3 [place] 00 :00 (three) Medical times Branch daily with meals for 7 days. ciprofloxac 2019-2019- No [id number] 4[drp] Place 4 Univers in-dexameth 6-04 06-05 Drops in ity of asone 00:00: 00:00 left ear 2 [place] (CIPRODEX) 00 :00 (two) Medical 0.3-0.1 % times Branch otic drops daily for 7 days. ciprofloxac 2019-2019- No [id number] 4[drp] Place 4 Univers in-dexameth 6-04 06-04 Drops in ity of asone 00:00: 00:00 left ear 2 [place] (CIPRODEX) 00 :00 (two) Medical 0.3-0.1 % times Branch otic drops daily for 7 days. ciprofloxac 2019-2019- No [id number] 4[drp] Place 4 Univers in-dexameth 6-04 06-04 Drops in ity of asone 00:00: 00:00 left ear 2 [place] (CIPRODEX) 00 :00 (two) Medical 0.3-0.1 % times Branch otic drops daily for 7 days. No known No [facility] No known No Univers medications [facility] No known No Univers medications [facility] No known No Univers medications [facility] No known No Univers medications [facility] No [facility] No Univers medications [facility] No [facility] No Univers medications [facility] No [facility] No Univers medications [facility] No [facility] No Univers medications [facility] No known No Univers medications [facility] No known No Univers medications [facility] No known No Univers medications [facility] No known No Univers medications [facility] Immunizations Ordered Filled Immunization Date Status Comments Sourc e Immunization Name Name SARS-COV-2 COVID-19 2021-04-15 Completed Unive rsity of PFIZER VACCINE 00:00:00 [facility] SARS-COV-2 COVID-19 2021-04-15 Completed Unive rsity of PFIZER VACCINE 00:00:00 [facility] SARS-COV-2 COVID-19 2021-04-15 Completed Unive rsity of PFIZER VACCINE 00:00:00 [facility] SARS-COV-2 COVID-19 2021-04-15 Completed Unive rsity of PFIZER VACCINE 00:00:00 [facility] SARS-COV-2 COVID-19 2021-04-15 Completed Unive rsity of PFIZER VACCINE 00:00:00 [facility] SARS-COV-2 COVID-19 2021-03-24 Completed Unive rsity of PFIZER VACCINE 00:00:00 [facility] SARS-COV-2 COVID-19 2021-03-24 Completed Unive rsity of PFIZER VACCINE 00:00:00 [facility] SARS-COV-2 COVID-19 2021-03-24 Completed Unive rsity of PFIZER VACCINE 00:00:00 [facility] SARS-COV-2 COVID-19 2021-03-24 Completed Unive rsity of PFIZER VACCINE 00:00:00 [facility] SARS-COV-2 COVID-19 2021-03-24 Completed Unive rsity of PFIZER VACCINE 00:00:00 [facility] Vital Signs Vital Name Observation Time Observation Value Comments Source Systolic blood 2020-02-23 14:58:00 146 mm[Hg] Univer sity of pressure [facility] Diastolic blood 2020-02-23 14:58:00 96 mm[Hg] Unive rsity of pressure [facility] Heart rate 2020-02-23 14:58:00 114 /min [facility] Body temperature 2020-02-23 14:56:[address] [facility] [place] ersity [facility] Respiratory rate 2020-02-23 14:56:00 18 /min [facility] Body height 2020-02-23 14:56:00 162.6 cm [facility] Body weight 2020-02-23 14:56:00 108.863 kg [facility] BMI 2020-02-23 14:56:00 41.20 kg/m2 Universi ty of [place] [facility] Oxygen saturation in 2020-02-23 14:56:00 99 /min University of Arterial blood by [facility] Pulse oximetry Branch Systolic blood 2020-02-23 14:58:00 146 mm[Hg] Univer sity of pressure [place] [facility] Diastolic blood 2020-02-23 14:58:00 96 mm[Hg] Unive rsity of pressure [place] [facility] Heart rate 2020-02-23 14:58:00 114 /min Universi ty of [place] [facility] Body temperature 2020-02-23 14:56:00 36.94 Tessa Univ ersity of [place] [facility] Respiratory rate 2020-02-23 14:56:00 18 /min Univ ersity of [place] [facility] Body height 2020-02-23 14:56:00 162.6 cm Universi ty of [place] [facility] Body weight 2020-02-23 14:56:00 108.863 kg Universi ty of [place] [facility] BMI 2020-02-23 14:56:00 41.20 kg/m2 Universi ty of [place] [facility] Oxygen saturation in 2020-02-23 14:56:00 99 /min University of Arterial blood by [facility] Pulse oximetry Branch Systolic blood 2020-02-01 21:03:00 139 mm[Hg] Univer sity of pressure [place] [facility] Diastolic blood 2020-02-01 21:03:00 89 mm[Hg] Unive rsity of pressure [place] [facility] Heart rate 2020-02-01 21:03:00 92 /min Universi ty of [place] [facility] Body temperature 2020-02-01 21:03:00 37.06 Tessa Univ ersity of [place] [facility] Respiratory rate 2020-02-01 21:03:00 17 /min Univ ersity of [place] [facility] Body height 2020-02-01 21:03:00 162.6 cm Universi ty of [place] [facility] Body weight 2020-02-01 21:03:00 106.595 kg Universi ty of [place] [facility] BMI 2020-02-01 21:03:00 40.34 kg/m2 Universi ty of [place] [facility] Oxygen saturation in 2020-02-01 21:03:00 98 /min University of Arterial blood by [facility] Pulse oximetry Branch Systolic blood 2020-02-01 21:03:00 139 mm[Hg] Univer sity of pressure [facility] Diastolic blood 2020-02-01 21:03:00 89 mm[Hg] Unive rsity of pressure [facility] Heart rate 2020-02-01 21:03:00 92 /min [facility] Body temperature 2020-02-01 21:03:[address] [facility] [place] [facility] Respiratory rate 2020-02-01 21:03:00 17 /min [facility] [place] [facility] Body height 2020-02-01 21:03:00 162.6 cm [facility] Body weight 2020-02-01 21:03:00 106.595 kg [facility] BMI 2020-02-01 21:03:00 40.34 kg/m2 [facility] Oxygen saturation in 2020-02-01 21:03:00 98 /min [facility] blood by [facility] Pulse oximetry Branch Procedures Procedure Date / Time Performed Performing Clinician Sour e CONSENT/REFUSAL FOR 2021-02-24 22:08:57 Doctor Unassigned, No Un [facility] DIAGNOSIS AND [facility] TREATMENT ASSIGNMENT OF BENEFITS 2021-02-24 22:08:43 Doctor Unassigned, No [facility] Name [facility] XR CHEST 2 VW 2020-12-02 14:39:32 Ashley Sebastian [facility] POCT GRP A STREP 2020-02-23 00:00:00 Radhika Oscar [facility] (MOLECULAR) Medical [place] Encounters Start End Encounter Admission Attending Care Care Encounter Source Date/Time Date/Time Type Type Clinicians Facility Department ID 2022-03-17 2022-03-17 Laboratory Only, Adc Pob2 Test [facility] 1.2 .840.114 [id number] [facility] 15:00:00 15:15:00 Only Baron Ruiz 350.1.13 .10 [facility] [id number] Elkin KAY [phone] Pa dical NAL [address] Branch BUILDING 2022-03-17 2022-03-17 Outpatient R [facility] [id number] [facility] 15:00:00 15:00:00 [id number] [facility] 2022-03-17 2022-03-17 Outpatient R JOSEPH [facility] [id number] Univers 15:00:00 08:47:55 BARON angel [facility] 2022-03-16 2022-03-16 Outpatient R JOSEPH [facility] [id number] Univers 08:00:00 08:50:32 BARON greco [facility] 2022-03-16 2022-03-16 Urban Designer Only, Adc Pob2 Test [facility] 1.2 .840.114 [id number] Univers 08:00:00 08:15:00 Visit Baron Ruiz 350.1.13 .10 ity of [id number] [phone] Pa dicwv NAL [address] [place] [address] 2022-03-16 2022-03-16 Outpatient R [facility] [id number] Univers 08:00:00 08:00:00 [id number] [facility] 2022-02-17 2022-02-17 Laboratory Only, Adc Pob2 Test [facility] .2 .840.114 [id number] Univers 15:15:00 15:30:00 Only Baron Ruiz 350.1.13 .10 [facility] [id number] [place] [phone] Pa dicwv NAL [address] [place] [address] 2022-02-17 2022-02-17 Outpatient R [facility] [id number] Univers 15:15:00 15:15:00 [id number] ity [facility] 2022-02-17 2022-02-17 Outpatient R JOSEPH [facility] [id number] Univers 15:15:00 09:18:02 BARON angel [facility] 2021-08-25 2021-08-25 Laboratory Only, Adc Pob2 Test [facility] 1.2 .840.114 [id number] Univers 14:30:00 14:45:00 Only Baron Ruiz 350.1.13 .10 ity [facility] [id number] [place] [phone] Pa dical NAL [address] [place] [address] 2021-08-25 2021-08-25 Outpatient R [facility] [id number] Univers 14:30:00 14:30:00 [id number] [facility] 2021-08-25 2021-08-25 [facility] [id number] Univers 14:30:00 12:06:35 [facility] 2021-04-18 2021-04-18 [facility] 1.2.840.114 [id number] Univers 17:12:12 17:32:12 ne Visit Lexy Ann-Marie [id number] ity of [place] [id number] Elkin palma Professio [phone] Pa dical nal 044 [facility] 2021-04-18 2021-04-18 [facility] [id number] Univers 14:00:00 14:00:00 LEXY [id number] [facility] 2021-04-18 2021-04-18 [facility] [id number] Univers 14:00:00 14:00:00 [facility] 2021-04-18 2021-04-18 Outpatient [facility] [id number] Univers 14:00:00 14:00:00 LEXY [facility] 2021-04-15 2021-04-15 [facility] [id number] Univers 15:10:00 15:10:00 [facility] 2021-03-24 2021-03-24 [facility] [id number] Univers 15:50:00 15:50:00 [facility] 2021-03-07 2021-03-07 [facility] [id number] Univers 00:00:00 00:00:00 Claritza Mitesh [facility] [id number] i ty jessica Jacobsen [id number] [place] as Professio [phone] Pa dical nal 044 [place] Office Building One 2021-03-07 2021-03-07 [facility] [id number] Univers 00:00:00 00:00:00 Claritza Sagastume [facility] [id number] i ty of [place] [id number] [place] as Professio [phone] Pa dical nal 044 [place] Office [facility] One 2021-03-07 2021-03-07 Telephone Lab, [facility] 1.2.840.114 [id number] Univers 00:00:00 00:00:00 Fam Pob I Health [id number] ity of [place] [id number] [place] as Professio [phone] [address] One 2021-03-05 2021-03-05 [facility] [id number] Univers 16:40:00 16:40:00 CLARITZA roxaneangel [facility] 2021-03-05 2021-03-05 Outpatient R [facility] [id number] Univers 16:40:00 16:40:00 [id number] ity [facility] 2021-03-05 2021-03-05 Laboratory Lab, [facility] Fam Pob I [facility] 1.2. 840.114 [id number] Univers 14:48:22 15:08:22 Only Claritza [facility] [id number] ity of [place] [id number] [place] as Professio [phone] [address] Office [facility] One 2021-02-28 2021-02-28 [facility] [id number] Univers 00:00:00 00:00:00 TORRI [id number] ity o f [facility] 2021-02-24 2021-02-24 [facility] [id number] Univers 17:12:55 23:59:00 Encounter Torri [place] [id number] ity of [id number] [phone] [facility] 806 [place] 2021-02-24 2021-02-24 Outpatient R FLETCHER [facility] [id number] Univers 17:30:00 17:30:00 TORRI [id number] ity o xavier [facility] 2021-02-24 2021-02-24 Outpatient R FLETCHER [facility] [id number] Univers 00:00:00 00:00:00 TORRI park [facility] 2021-02-24 2021-02-24 Orders Doctor HOLLY 1.2.840.114 [id number] Univers 00:00:00 00:00:00 Only Unassigned, LEA 350.1.13.10 ity of [facility] [id number] [place] as [phone] [facility] 009 Branch 2021-02-19 2021-02-19 Outpatient R FLETCHER [facility] [id number] Univers 16:30:00 16:30:00 TORRI [id number] fannie o xavier [facility] 2021-02-19 2021-02-19 Outpatient [facility] [id number] Univers 16:30:00 16:30:00 TORRI park [facility] 2021-02-19 2021-02-19 Telemedici [facility] 1.2.840.114 [id number] Univers 09:17:36 15:17:21 ne Visit Torri Jacobsen 350.1.13.10 it[id number] [facility] [phone] Pa [facility] 044 Branch Building 2020-12-02 2020-12-02 [facility] 1.2.840.114 [id number] Univers 09:09:55 23:59:00 Encounter Ashley Jacobsen [id number] ity of [id number] [phone] [facility] 807 Branch 2020-12-02 2020-12-02 Outpatient [facility] [id number] Univers 09:15:00 09:15:00 ASHLEY [id number] ity of [facility] 2020-12-02 2020-12-02 [facility] [id number] Univers 00:00:00 00:00:00 ASHLEY angel [facility] 2020-12-02 2020-12-02 [facility] 1.2.840.114 [id number] Univers 00:00:00 00:00:00 Management Ashley Jacobsen [id number] ity [id number] Profess[place] [phone] [address] 2020-09-18 2020-09-18 Outpatient [facility] [id number] Univers 15:00:00 15:00:00 [id number] [facility] 2020-09-18 2020-09-18 Outpatient [facility] [id number] Univers 15:00:00 15:00:00 CLARITZA greco [facility] 2020-09-18 2020-09-18 Laboratory Lab, [facility] 1.2. 840.114 [id number] Univers 08:13:46 08:33:46 Only Claritza [facility] [id number] ity of [place] [id number] [place] as Professio [phone] [address] 2020-07-10 2020-07-10 Urban Designer Lab, [facility] 1.2. 840.114 [id number] Univers 11:47:22 12:07:22 Visit Claritza [facility] 350.1.13.10 ity of [place] [id number] [place] as Professio [phone] [address] One 2020-07-10 2020-07-10 Outpatient R [facility] [id number] Univers 11:40:00 11:40:00 [id number] [facility] 2020-07-10 2020-07-10 Outpatient [facility] [id number] Univers 11:40:00 11:40:00 CLARITZA [facility] 2020-02-25 2020-02-25 Calli Farris HOLLY [id number] [facility] 00:00:00 00:00:00 Claritza Sagastume LEA 350.1.13.10 i ty [facility] [id number] [place] as [phone] [address] 2020-02-25 2020-02-25 Telephone HOLLY Farris [id number] 00:00:00 00:00:00 Claritza OTEROY 350.1.13.10 [facility] [id number] [facility] 2020-02-23 2020-02-23 Urgent Pob1, [place] [facility] [place] 1. 2.840.114 [id number] [facility] 09:48:47 10:24:57 Care Parisa [facility] [id number] ity of [place] [id number] [place] as Professio [phone] [address] Office Building [facility] 2020-02-23 2020-02-23 Urgent Pob1, Acute [facility] 1.2.840.114 [id number] 09:48:47 10:24:57 [facility] Health 350.1.13.10 [place] [id number] Professio [phone] [place] [address] Office [facility] 2020-02-23 2020-02-23 Outpatient R [facility] [id number] Univers 10:20:00 10:20:[id number] [place] [address] 2020-02-23 2020-02-23 [facility]patient [facility] [id number] Univers 10:20:00 10:20:00 PARISA [facility] 2020-02-01 2020-02-02 Urgent Provider, [facility] Urgent Care [facility] 1.2.840.114 [id number] Univers 15:19:08 09:58:50 Care KaleighClaritza [facility] [id number] ity of [place] [id number] [place] as Professio [phone] [address] Office Building One 2020-02-01 2020-02-02 Urgent Provider, [facility] [id number] 15:19:08 09:58:50 Care [facility] [id number] Care [place] [id number] Ethel [phone] nal 044 Office Building One 2020-02-01 2020-02-01 Outpatient Bekah FARRIS, [facility] [id number] Univers 15:40:00 15:40:00 CLARITZA greco [facility] 2019-11-22 2019-11-22 Outpatient Raju_P [facility] MM[facility] [id number] [place] 04:53:00 04:53:00 0325 [facility] Results Test Description Test Time Test Comments Results Result Sourc e Comments XR CHEST 2 VW No acute [facility] cardiopulmonary [place] Med ical 16:26:10 disease. CHEST [...] fracture of the right seventh rib laterally. [facility] [[email or web address]], Radiant Results Inft User - 12/02/2020 11:27 [...] POCT GP A STREP (test code = 21727-6) neg Negative - Negat [facility] [place] [facility]
[2022-05-25 19:36] LABS: Urine Blood Trace-intact (Negative); Urine Glucose Negative (Negative); Urine Protein Negative (Negative); Urine Specific Gravity >=1.030 (1.005-1.030)
--- NOTE | 2022-05-25 19:39 | ER ---
Nurse's Notes [facility] Name: Melissa Jacobson Age: 26 yrs Sex: Female : 1995 Arrival Date: 05/25/2022 Time: 18:14 Bed 12 Private MD: Diagnosis: Low back pain;Elevated blood-pressure reading, without diagnosis of hypertension Presentation: 05/25 18:34 Chief complaint: Patient states: Right low back pain, radiates to right buttock, jl7 reports pain with certain movements, denies urinary symptoms. Coronavirus screen: At this time, the client does not indicate any symptoms associated with coronavirus-19. Ebola Screen: No symptoms or risks identified at this time. Initial Sepsis Screen: Does the patient meet any 2 criteria? No. Patient's initial sepsis screen is negative. Does the patient have a suspected source of infection? No. Patient's initial sepsis screen is negative. Risk Assessment: Do you want to hurt yourself or someone else? Patient reports no desire to harm self or others. Onset of symptoms was May 22, 2022. 18:34 Method Of Arrival: Ambulatory [facility] 18:34 Acuity: FLAVIO 4 jl7 Triage Assessment: 18:36 General: Appears in no apparent distress. uncomfortable, Behavior is calm, cooperative, jl7 appropriate for age. Pain: Complains of pain in right low back Pain radiates to right gluteus naeem Pain currently is 5 out of 10 on a pain scale. Musculoskeletal: Swelling absent. 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 - Social history:: Smoking status: Patient denies any tobacco usage or history of. Screenin:38 Abuse screen: Denies threats or abuse. Nutritional screening: No deficits noted. bm7 Tuberculosis screening: No symptoms or risk factors identified. Fall Risk None identified. Assessment: 19:38 Reassessment: No changes from previously documented assessment. Patient and/or family bm7 updated on plan of care and expected duration. Pain level reassessed. Patient is alert, oriented x 3, equal unlabored respirations, skin warm/dry/pink. Vital Signs: 18:34 BP 162 / 98; Pulse 90; Resp 17; Temp 97; Pulse Ox 97% ; Weight 113.4 kg; Height 5 ft. 4 jl7 in. (162.56 cm); Pain 5/10; 18:34 Body Mass Index 42.91 (113.40 kg, 162.56 cm) jl7 ED Course: 18:14 Patient arrived in ED. rg4 18:22 [facility]C [facility]. snw 18:22 Thierno Ashraf DO is Attending Physician. snw 18:36 Triage completed. jl7 18:36 Arm band placed on right wrist. jl7 19:30 Torri Altman, RN is Primary Nurse. bm7 19:38 No apparent distress. Resting quietly. Awaiting lab results. bm7 19:38 Patient has correct armband on for positive identification. Call light in reach. Side bm7 rails up X 1. Adult w/ patient. Client placed on continuous cardiac and pulse oximetry monitoring. NIBP monitoring applied. Warm blanket given. Assisted to bathroom. 19:38 No provider procedures requiring assistance completed. Urine collected: clean catch bm7 specimen, clear. Patient maintains SpO2 saturation greater than 95% on room air. 19:54 Patient did not have IV access during this emergency room visit. bm7 Administered Medications: 19:53 Drug: Decadron (dexamethasone) 10 mg Route: IM; Site: Other; bm7 19:53 Follow up: Response: No adverse reaction bm7 19:53 Drug: Valium (diazepam) 10 mg Route: PO; bm7 19:53 Follow up: Response: No adverse reaction bm7 Medication: 19:38 VIS not applicable for this client. bm7 Outcome: 19:39 Discharge ordered by . snw 19:54 Discharged to home ambulatory, with family. bm7 19:54 Condition: good 19:54 Discharge instructions given to patient, family, Instructed on discharge instructions, follow up and referral plans. medication usage, Demonstrated understanding of instructions, follow-up care, medications, Prescriptions given X 2. 19:56 Patient left the ED. bm7 Signatures: Erika Alex FNP-C PATIENT CLERICAL ASSISTANT-Merly Clay rg4 Franck Coon, RN RN jl7 Torri Altman, RN RN bm7
--- NOTE | 2022-05-25 19:39 | EDPHYS ---
Physician Documentation [facility] Name: Melissa Jacobson Age: 26 yrs Sex: Female : 1995 Arrival Date: 05/25/2022 Time: 18:14 Bed 12 Private MD: ED Physician Thierno Ashraf HPI: 05/25 19:36 This 26 yrs old Female presents to ER via Ambulatory with complaints of Back snw Pain. 19:36 The patient presents with pain that is acute. The symptoms are located in the low back. snw Onset: The symptoms/episode began/occurred suddenly, 1 week(s) ago, and became worse this morning. The pain does not radiate. Associated signs and symptoms: The patient has no apparent associated signs or symptoms. The problem was sustained when bending over. Severity of symptoms: At their worst the symptoms were moderate, in the emergency department the symptoms are unchanged. The patient has not experienced similar symptoms in the past. It is unknown whether or not the patient has recently seen a physician. 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 - Social history:: Smoking status: Patient denies any tobacco usage or history of. ROS: 19:36 Constitutional: Negative for fever, chills, and weight loss, Eyes: Negative for injury, snw pain, redness, and discharge, ENT: Negative for injury, pain, and discharge, Neck: Negative for injury, pain, and swelling, Cardiovascular: Negative for chest pain, palpitations, and edema, Respiratory: Negative for shortness of breath, cough, wheezing, and pleuritic chest pain, Abdomen/GI: Negative for abdominal pain, nausea, vomiting, diarrhea, and constipation, : Negative for injury, bleeding, discharge, and swelling, MS/Extremity: Negative for injury and deformity, Skin: Negative for injury, rash, and discoloration, Neuro: Negative for headache, weakness, numbness, tingling, and seizure, Psych: Negative for depression, anxiety, suicide ideation, homicidal ideation, and hallucinations. 19:36 Back: Positive for pain with movement, of the low back area. Exam: 19:37 Constitutional: This is a well developed, obese patient who is awake, alert, and in no snw acute distress. Head/Face: Normocephalic, atraumatic. Eyes: Pupils equal round and reactive to light, extra-ocular motions intact. Lids and lashes normal. Conjunctiva and sclera are non-icteric and not injected. Cornea within normal limits. Periorbital areas with no swelling, redness, or edema. ENT: Nares patent. No nasal discharge, no septal abnormalities noted. Tympanic membranes are normal and external auditory canals are clear. Oropharynx with no redness, swelling, or masses, exudates, or evidence of obstruction, uvula midline. Mucous membranes moist. Neck: Trachea midline, no thyromegaly or masses palpated, and no cervical lymphadenopathy. Supple, full range of motion without nuchal rigidity, or vertebral point tenderness. No Meningismus. Chest/axilla: Normal chest wall appearance and motion. Nontender with no deformity. No lesions are appreciated. Cardiovascular: Regular rate and rhythm with a normal S1 and S2. No gallops, murmurs, or rubs. Normal PMI, no JVD. No pulse deficits. Respiratory: Lungs have equal breath sounds bilaterally, clear to auscultation and percussion. No rales, rhonchi or wheezes noted. No increased work of breathing, no retractions or nasal flaring. Abdomen/GI: Soft, non-tender, with normal bowel sounds. No distension or tympany. No guarding or rebound. No evidence of tenderness throughout. Skin: Warm, dry with normal turgor. Normal color with no rashes, no lesions, and no evidence of cellulitis. MS/ Extremity: Pulses equal, no cyanosis. Neurovascular intact. Full, normal range of motion. Neuro: Awake and alert, GCS 15, oriented to person, place, time, and situation. Cranial nerves II-XII grossly intact. Motor strength 5/5 in all extremities. Sensory grossly intact. Cerebellar exam normal. Normal gait. 19:37 Back: pain, that is moderate, that is severe, of the low back area, CVA tenderness, is absent, muscle spasm, is appreciated in the low back area. 19:37 Neuro: Orientation: is normal, Mentation: is normal, Memory: is normal, Sensation: is normal, Gait: is steady, with some pain evident. Vital Signs: 18:34 BP 162 / 98; Pulse 90; Resp 17; Temp 97; Pulse Ox 97% ; Weight 113.4 kg; Height 5 ft. 4 jl7 in. (162.56 cm); Pain 5/10; 18:34 Body Mass Index 42.91 (113.40 kg, 162.56 cm) jl7 MDM: 18:41 Patient medically screened. snw 19:38 Data reviewed: vital signs, nurses notes. Data interpreted: Pulse oximetry: on room air snw is 97 %. Interpretation: normal. Counseling: I had a detailed discussion with the patient and/or guardian regarding: the historical points, exam findings, and any diagnostic results supporting the discharge/admit diagnosis, lab results, the need for outpatient follow up, to return to the emergency department if symptoms worsen or persist or if there are any questions or concerns that arise at home. Special discussion: I have referred the patient to see his PCP for further evaluation of high blood pressure. Based on the history and exam findings, there is no indication for further emergent testing or inpatient evaluation. I discussed with the patient/guardian the need to see the primary care provider for further evaluation of the symptoms. 05/25 19:36 Order name: Urine Dipstick-Ancillary; Complete Time: 19:40 EDMS 05/25 18:15 Order name: Urine Dipstick-Ancillary (obtain specimen); Complete Time: 19:38 snw 05/25 18:15 Order name: Urine Test (obtain specimen); Complete Time: 19:38 snw Administered Medications: 19:53 Drug: Decadron (dexamethasone) 10 mg Route: IM; Site: Other; bm7 19:53 Follow up: Response: No adverse reaction bm7 19:53 Drug: Valium (diazepam) 10 mg Route: PO; bm7 19:53 Follow up: Response: No adverse reaction bm7 Disposition: 05/26 08:45 Co-signature as Attending Physician, Thierno Ashraf DO I was immediately available on-site ms3 in the Emergency Department for consultation in the care of the patient. . Disposition Summary: 05/25/22 19:39 Discharge Ordered Location: Home snw Condition: Stable snw Diagnosis - Low back pain snw - Elevated blood-pressure reading, without diagnosis of hypertension snw Followup: snw - With: Emergency Department - When: As needed - Reason: Worsening of condition Followup: snw - With: Private Physician - When: 2 - 3 days - Reason: Recheck today's complaints, Continuance of care, Re-evaluation by your physician Discharge Instructions: - Discharge Summary Sheet snw - Acute Back Pain, Adult snw - Hypertension, Adult snw - Musculoskeletal Pain snw - Back Injury Prevention, [id number] snw - How to Use Cold Therapy snw - Heat Therapy snw - Form - Blood Pressure Record Sheet snw - How to Take Your Blood Pressure snw Forms: - Medication Reconciliation Form snw - Work release form snw - Thank You Letter snw - Antibiotic Education snw - Prescription Opioid Use snw Prescriptions: - Diclofenac Sodium 75 mg Oral Tablet Sustained Release - take 1 tablet by ORAL route 2 times per day; 30 tablet; Refills: 0, Product snw Selection Permitted - orphenadrine citrate 100 mg Oral Tablet Sustained Release - take 1 tablet by ORAL route 2 times per day As needed; 20 tablet; Refills: 0, snw Product Selection Permitted Signatures: Dispatcher [employer] EDMS Erika Alex, F[employer]TER [employer]PER-Csnw Franck Coon, RN RN jl7 Thierno Ashraf DO DO ms3 Torri Altman, RN RN bm7 Corrections: (The following items were deleted from the chart) 05/25 19:39 19:37 Constitutional: This is a well developed, well nourished patient who is awake, snw alert, and in no acute distress. Head/Face: Normocephalic, atraumatic. Eyes: Pupils equal round and reactive to light, extra-ocular motions intact. Lids and lashes normal. Conjunctiva and sclera are non-icteric and not injected. Cornea within normal limits. Periorbital areas with no swelling, redness, or edema. ENT: Nares patent. No nasal discharge, no septal abnormalities noted. Tympanic membranes are normal and external auditory canals are clear. Oropharynx with no redness, swelling, or masses, exudates, or evidence of obstruction, uvula midline. Mucous membranes moist. Neck: Trachea midline, no thyromegaly or masses palpated, and no cervical lymphadenopathy. Supple, full range of motion without nuchal rigidity, or vertebral point tenderness. No Meningismus. Chest/axilla: Normal chest wall appearance and motion. Nontender with no deformity. No lesions are appreciated. Cardiovascular: Regular rate and rhythm with a normal S1 and S2. No gallops, murmurs, or rubs. Normal PMI, no JVD. No pulse deficits. Respiratory: Lungs have equal breath sounds bilaterally, clear to auscultation and percussion. No rales, rhonchi or wheezes noted. No increased work of breathing, no retractions or nasal flaring. Abdomen/GI: Soft, non-tender, with normal bowel sounds. No distension or tympany. No guarding or rebound. No evidence of tenderness throughout. Skin: Warm, dry with normal turgor. Normal color with no rashes, no lesions, and no evidence of cellulitis. MS/ Extremity: Pulses equal, no cyanosis. Neurovascular intact. Full, normal range of motion. Neuro: Awake and alert, GCS 15, oriented to person, place, time, and situation. Cranial nerves II-XII grossly intact. Motor strength 5/5 in all extremities. Sensory grossly intact. Cerebellar exam normal. Normal gait. snw
[2022-05-25] MEDS ORDERED: dexAMETHasone 10 MG/ML VIAL ONE (19:44)
[2022-05-25] MEDS ORDERED: DIAZEPAM 5 MG TABLET ONE (19:44)
== END 2022-05-25 19:56 | disposition home or self-care (01) ==
LOC: ER 18:11
DX: M54.50 Low back pain, unspecified (principal); R03.0 Elevated blood-pressure reading, without diagnosis of hypertension
CPT/HCPCS: 81003; J1100; 96372; 99284

== ENCOUNTER 2023-02-01 17:03 | Emergency (ER) | payer BC ==
--- OUTSIDE RECORDS SUMMARY | 2023-02-01 17:07 | XMS REPORT | Continuity of Care Document ---
:[address] [facility] t Address [address] [place] [address] Care Team Providers Name Role Phone Tiffanie Kristy Primary Care Physician RUDDY BARONE Attending Clinician Unavailable Barone LEATHER TANNER, Ruddy Attending Clinician Only, Ang Db Test Attending Clinician Unavailable Unknown, Attending Attending Clinician Unavailable Ebrahim LEATHER TANNER Rania Attending Clinician EBCRISTÓBAL RANIA Attending Clinician Unavailable UNKNOWN, ATTENDING Attending Clinician Unavailable Nurse, Adc Fam Attending Clinician Unavailable Vikas More NP Attending Clinician VIKAS MORE Attending Clinician Unavailable Only, Adc Pob2 Test Attending Clinician Unavailable Baron Ruiz DO Attending Clinician ABRON RUIZ Attending Clinician Unavailable Lexy Urias MD Attending Clinician LEXY URIAS Attending Clinician Unavailable Claritza Mulligan Attending Clinician Lab, Adc Fam Pob I Attending Clinician Unavailable CLARITZA FARRIS Attending Clinician Unavailable Torri Vasquez Attending Clinician TORRI BYNUM Attending Clinician Unavailable Doctor Unassigned, [place] Attending Clinician Unavailable Ashley Sebastian MD Attending Clinician [phone] ASHLEY SEBASTIAN Attending Clinician Unavailable Pob1, [facility] Attending Clinician Unavailable Parisa Ontiveros Attending Clinician PARISA REDMAN Attending Clinician Unavailable Provider, [facility] Attending Clinician Unavailable Padmini_Sha Attending Clinician Unavailable Padmini_Sha Admitting Clinician Unavailable Payers Payer Name Policy Type Policy Number Effective Date Expiration Date S ource [employer] [place] [id number] 2018 EMPLOYEE PLAN 00:00:00 [employer] [place] [id number] 2018 00:00:00 Problems Condition Condition Condition Status Onset Resolution Last Treating Co mments Source Name Details Category Date Date Treatment Clinician Date Non-recurr Non-recurr Disease Active U nivers ent acute ent acute 8-20 ity of serous serous 00:00: [place] otitis otitis 00 Medical media of media of Branch right ear right ear Acute ear Acute ear Disease Active Uni vers pain, pain, 8-20 ity of right right 00:00: [address] Acute ear Acute ear Disease Active Uni vers pain, pain, 8-20 ity of right right 00:00: [address] No known No known Disease Unive rs active active ity of problems problems [facility] Allergies, Adverse Reactions, Alerts Allergy Allergy Status Severity Reaction(s) Onset Inactive Treating Comm ents Source Name Type Date Date Clinician NO KNOWN Drug Active Univers ALLERGIE Class ity of S [facility] Social History Social Habit Start Date Stop Date Quantity Comments Source Tobacco use and 2022-11-09 2022-11-09 Smokeless tobacco Un iversity of exposure 00:00:00 00:00:00 non-user [facility] Exposure to 2022-08-09 2022-08-19 Not sure [facility] [place] [facility]-CoV-2 00:00:00 09:37:00 [facility] [place] (event) [place] Sex Assigned At [birth year] Universit y of 00:00:00 00:00:00 [facility] Smoking Status Start Date Stop Date Source Never smoked tobacco [facility] Medications Ordered Filled Start Stop Current Ordering Indication Dosage Frequency Signature Comments Components Source Medication Medication Date Date Medication? Clinician (SIG) Name Name ofloxacin Yes [id number] 4[drp] Place 4 Univers 0.3 % 3-13 Drops in ity of ophthalmic 00:00: [place] ear 4 [place] solution 00 (four) Medical times Branch daily. benzonatate 2021-08 Yes [id number] 100mg Take 1 Univers (TESSALON 2-19 capsule by ity of PERLES) 100 00:00: mouth [place] mg capsule 00 every 8 Medica l (eight) Branch hours as needed for Cough. bromphenira 2021-08 Yes [id number] 5mL Take 5 mL Univers mine-pseudo 2-19 by mouth 4 it y of ephedrine-D 00:00: ([place] (BROMFED 00 times Medical DM) 2-30-10 daily as Bran ch mg/5 mL needed for syrup Congestion /Allergies , Cold symptoms or Cough. benzonatate 2021-08 Yes [id number] 100mg Take 1 Univers (TESSALON 2-19 capsule by ity of PERLES) 100 00:00: mouth [place] mg capsule 00 every 8 Medica l (eight) Branch hours as needed for Cough. bromphenira 2021-08 Yes [id number] 5mL Take 5 mL Univers mine-pseudo 2-19 by mouth 4 it y of ephedrine-D 00:00: (four[place] (BROMFED 00 times Medical DM) 2-30-10 daily as Bran ch mg/5 mL needed for syrup Congestion /Allergies , Cold symptoms or Cough. molnupiravi 2021-08 Yes [id number] 800mg Take 4 Univers r 200 mg 2-19 capsules ity of capsule 00:00: by mouth [place] 00 every 12 Medical (twelve) Branch hours. benzonatate 2021-08 Yes [id number] 100mg Take 1 Univers (TESSALON 2-19 capsule by ity of PERLES) 100 00:00: mouth [place] mg capsule 00 every 8 Medica l (eight) Branch hours as needed for Cough. bromphenira 2021-08 Yes [id number] 5mL Take 5 mL Univers mine-pseudo 2-19 by mouth 4 it y of ephedrine-D 00:00: (four[place] (BROMFED 00 times Medical DM) 2-30-10 daily as Bran ch mg/5 mL needed for syrup Congestion /Allergies , Cold symptoms or Cough. molnupiravi 2021-08 Yes [id number] 800mg Take 4 Univers r 200 mg -19 capsules ity of capsule 00:00: by mouth [place] 00 every 12 Medical (twelve) Branch hours. benzonatate 2021-08- No [id number] 100mg Take 1 Univers (TESSALON 10-18 capsule by ity of TODD) 100 00:00: 00:00 [place] mg capsule 00 :00 every 8 Medica l (eight) Branch hours as needed for Cough. bromphenira 2021-08- No [id number] 5mL Take 5 mL Univers mine-pseudo 10-18 by mouth 4 i ty of ephedrine-D 00:00: 00:00 (four) [place] as M (BROMFED 00 :00 times Medical DM) 2-30-10 daily as Bran ch mg/5 mL needed for syrup Congestion /Allergies , Cold symptoms or Cough. molnupiravi 2021-08- No [id number] 800mg Take 4 Univers r 200 mg 10-18 capsules ity of capsule 00:00: 00:00 by mouth [place] 00 :00 every 12 Medical (twelve) Branch hours. amoxicillin 2021-08- No [id number] 1{tbl} Take 1 Univers -clavulanat 2-19 12-27 tablet by it y of e 00:00: 05:59 mouth in [place] (AUGMENTIN) 00 :00 the Medical 875-125 mg morning Branch per tablet and 1 tablet in the evening. Do all this for 7 days. amoxicillin 2021-08- No [id number] 1{tbl} Take 1 Univers -clavulanat 2-19 12-27 tablet by it y of e 00:00: 05:59 mouth in [place] (AUGMENTIN) 00 :00 the Medical 875-125 mg morning Branch per tablet and 1 tablet in the evening. Do all this for 7 days. amoxicillin 2021-08- No [id number] 1{tbl} Take 1 Univers -clavulanat 2-19 12-27 tablet by it y of e 00:00: 05:59 mouth in [place] (AUGMENTIN) 00 :00 the Medical 875-125 mg morning Branch per tablet and 1 tablet in the evening. Do all this for 7 days. amoxicillin Yes [id number] 1{tbl} Take 1 Univers -clavulanat 8-20 tablet by ity of e 00:00: mouth 2 [place] (AUGMENTIN) 00 (two) Medical 875-125 mg times Branch per tablet daily. ibuprofen 2020-0 Yes [id number] 600mg Take 1 Univers 600 mg 8-20 tablet by ity of tablet 00:00: mouth [place] 00 every 6 Medical (six) Branch hours as needed for Pain (scale 4-6). amoxicillin 2020-0 Yes [id number] 1{tbl} Take 1 Univers -clavulanat 8-20 tablet by ity of e 00:00: mouth 2 [place] (AUGMENTIN) 00 (two) Medical 875-125 mg times Branch per tablet daily. ibuprofen 2020-0 Yes [id number] 600mg Take 1 Univers 600 mg 8-20 tablet by ity of tablet 00:00: mouth [place] 00 every 6 Medical (six) Branch hours as needed for Pain (scale 4-6). amoxicillin 2020-0 Yes [id number] 1{tbl} Take 1 Univers -clavulanat 8-20 tablet by ity of e 00:00: mouth 2 [place] (AUGMENTIN) 00 (two) Medical 875-125 mg times Branch per tablet daily. ibuprofen 2020-0 Yes [id number] 600mg Take 1 Univers 600 mg 8-20 tablet by ity of tablet 00:00: mouth [place] 00 every 6 Medical (six) Branch hours as needed for Pain (scale 4-6). amoxicillin 2020-0 Yes [id number] 1{tbl} Take 1 Univers -clavulanat 8-20 tablet by ity of e 00:00: mouth 2 [place] (AUGMENTIN) 00 (two) Medical 875-125 mg times Branch per tablet daily. ibuprofen 2020-0 Yes [id number] 600mg Take 1 Univers 600 mg 8-20 tablet by ity of tablet 00:00: mouth [place] 00 every 6 Medical (six) Branch hours as needed for Pain (scale 4-6). amoxicillin 2020-0 Yes [id number] 1{tbl} Take 1 Univers -clavulanat 8-20 tablet by ity of e 00:00: mouth 2 [place] (AUGMENTIN) 00 (two) Medical 875-125 mg times Branch per tablet daily. ibuprofen 2020-0 Yes [id number] 600mg Take 1 Univers 600 mg 8-20 tablet by ity of tablet 00:00: mouth [place] 00 every 6 Medical (six) Branch hours as needed for Pain (scale 4-6). amoxicillin 2020-0 Yes [id number] 1{tbl} Take 1 Univers -clavulanat 8-20 tablet by ity of e 00:00: mouth 2 [place] (AUGMENTIN) 00 (two) Medical 875-125 mg times Branch per tablet daily. ibuprofen 2020-0 Yes [id number] 600mg Take 1 Univers 600 mg 8-20 tablet by ity of tablet 00:00: mouth [place] 00 every 6 Medical (six) Branch hours as needed for Pain (scale 4-6). amoxicillin 2020-0 Yes [id number] 1{tbl} Take 1 Univers -clavulanat 8-20 tablet by ity of e 00:00: mouth 2 [place] (AUGMENTIN) 00 (two) Medical 875-125 mg times Branch per tablet daily. ibuprofen 2020-0 Yes [id number] 600mg Take 1 Univers 600 mg 8-20 tablet by ity of tablet 00:00: mouth [place] 00 every 6 Medical (six) Branch hours as needed for Pain (scale 4-6). amoxicillin 2020-0 Yes [id number] 1{tbl} Take 1 Univers -clavulanat 8-20 tablet by ity of e 00:00: mouth 2 [place] (AUGMENTIN) 00 (two) Medical 875-125 mg times Branch per tablet daily. ibuprofen 2020-0 Yes [id number] 600mg Take 1 Univers 600 mg 8-20 tablet by ity of tablet 00:00: mouth [place] 00 every 6 Medical (six) Branch hours as needed for Pain (scale 4-6). amoxicillin 2020-0 Yes [id number] 1{tbl} Take 1 Univers -clavulanat 8-20 tablet by ity of e 00:00: mouth 2 [place] (AUGMENTIN) 00 (two) Medical 875-125 mg times Branch per tablet daily. ibuprofen 2020-0 Yes [id number] 600mg Take 1 Univers 600 mg 8-20 tablet by ity of tablet 00:00: mouth [place] 00 every 6 Medical (six) Branch hours as needed for Pain (scale 4-6). amoxicillin 2020-0 Yes [id number] 1{tbl} Take 1 Univers -clavulanat 8-20 tablet by ity of e 00:00: mouth 2 [place] (AUGMENTIN) 00 (two) Medical 875-125 mg times Branch per tablet daily. ibuprofen Yes [id number] 600mg Take 1 Univers 600 mg 8-20 tablet by ity of tablet 00:00: mouth [place] 00 every 6 Medical (six) Branch hours as needed for Pain (scale 4-6). amoxicillin Yes [id number] 1{tbl} Take 1 Univers -clavulanat 8-20 tablet by ity of e 00:00: mouth 2 [place] (AUGMENTIN) 00 (two) Medical 875-125 mg times Branch per tablet daily. ibuprofen 2022- No [id number] 600mg Take 1 Univers 600 mg 8-20 03-13 tablet by ity of tablet 00:00: 00:00 mouth [place] 00 :00 every 6 Medical (six) Branch hours as needed for Pain (scale 4-6). ofloxacin 2020- No [id number] 5[drp] Place 5 Univers 0.3 % otic 6-05 06-16 Drops in ity of drops 00:00: 04:59 left ear 2 [place] 00 :00 (two) Medical times Branch daily for 10 days. ibuprofen 2020- No [id number] 600mg Take 1 Univers 600 mg 6-04 06-12 tablet by ity of tablet 00:00: 04:59 mouth 3 [place] 00 :00 (three) Medical times Branch daily with meals for 7 days. ciprofloxac 2019- 2020- No [id number] 4[drp] Place 4 Univers in-dexameth 6-04 06-12 Drops in ity of asone 00:00: 04:59 left ear 2 [place] (CIPRODEX) 00 :00 (two) Medical 0.3-0.1 % times Branch otic drops daily for 7 days. ibuprofen 2020- 2020- No [id number] 600mg Take 1 Univers 600 mg 6-04 06-12 tablet by ity of tablet 00:00: 04:59 mouth 3 [place] 00 :00 (three) Medical times Branch daily with meals for 7 days. ciprofloxac 2019- 2020- No [id number] 4[drp] Place 4 Univers in-dexameth 6-04 06-05 Drops in ity of asone 00:00: 00:00 left ear 2 [place] (CIPRODEX) 00 :00 (two) Medical 0.3-0.1 % times Branch otic drops daily for 7 days. ciprofloxac 2020-0 2020- No [id number] 4[drp] Place 4 Univers in-dexameth 6-04 06-04 Drops in ity of asone 00:00: 00:00 left ear 2 [place] (CIPRODEX) 00 :00 (two) Medical 0.3-0.1 % times Branch otic drops daily for 7 days. ciprofloxac 2020-0 2020- No [id number] 4[drp] Place 4 Univers in-dexameth 6-04 06-04 Drops in ity of asone 00:00: 00:00 left ear 2 [place] (CIPRODEX) 00 :00 (two) Medical 0.3-0.1 % times Branch otic drops daily for 7 days. No known No Univers medications ity [facility] No known No Univers medications ity [facility] No known No Univers medications ity [facility] No known No Univers medications ity [facility] No known No Univers medications ity [facility] No known No Univers medications ity [facility] No known No Univers medications ity [facility] No known No Univers medications ity [facility] No [facility] No [facility] No known No [facility] No known No [facility] No known No [facility] No known No [facility] Immunizations Ordered Filled Immunization Date Status Comments [facility] Immunization Name Name SARS-COV-2 COVID-19 2021-04-15 Completed Unive rsity of PFIZER VACCINE 00:00:00 [facility] SARS-COV-2 COVID-19 2021-04-15 Completed Unive rsity of PFIZER VACCINE 00:00:00 [facility] SARS-COV-2 COVID-19 2021-04-15 Completed Unive rsity of PFIZER VACCINE 00:00:00 [facility] SARS-COV-2 COVID-19 2021-04-15 Completed Unive rsity of PFIZER VACCINE 00:00:00 [place] [facility] Branch SARS-COV-2 COVID-19 2021-04-15 Completed Unive rsity of PFIZER VACCINE 00:00:00 [facility] Branch SARS-COV-2 COVID-19 2021-04-15 Completed Unive rsity of PFIZER VACCINE 00:00:00 [facility] Branch SARS-COV-2 COVID-19 2021-04-15 Completed Unive rsity of PFIZER VACCINE 00:00:00 [facility] Branch SARS-COV-2 COVID-19 2021-04-15 Completed Unive rsity of PFIZER VACCINE 00:00:00 [facility] Branch SARS-COV-2 COVID-19 2021-04-15 Completed Unive rsity of PFIZER VACCINE 00:00:00 [facility] Branch SARS-COV-2 COVID-19 2021-04-15 Completed Unive rsity of PFIZER VACCINE 00:00:00 [facility] Branch SARS-COV-2 COVID-19 2021-04-15 Completed Unive rsity of PFIZER VACCINE 00:00:00 [facility] Branch SARS-COV-2 COVID-19 2021-03-24 Completed Unive rsity of PFIZER VACCINE 00:00:00 [facility] Branch SARS-COV-2 COVID-19 2021-03-24 Completed Unive rsity of PFIZER VACCINE 00:00:00 [facility] Branch SARS-COV-2 COVID-19 2021-03-24 Completed Unive rsity of PFIZER VACCINE 00:00:00 [facility] Branch SARS-COV-2 COVID-19 2021-03-24 Completed Unive rsity of PFIZER VACCINE 00:00:00 [facility] Branch SARS-COV-2 COVID-19 2021-03-24 Completed Unive rsity of PFIZER VACCINE 00:00:00 [facility] Branch SARS-COV-2 COVID-19 2021-03-24 Completed Unive rsity of PFIZER VACCINE 00:00:00 [facility] Branch SARS-COV-2 COVID-19 2021-03-24 Completed Unive rsity of PFIZER VACCINE 00:00:00 [facility] SARS-COV-2 COVID-19 2021-03-24 Completed Unive rsity of PFIZER VACCINE 00:00:00 [facility] Branch SARS-COV-2 COVID-19 2021-03-24 Completed Unive rsity of PFIZER VACCINE 00:00:00 [facility] SARS-COV-2 COVID-19 2021-03-24 Completed Unive rsity of PFIZER VACCINE 00:00:00 [facility] SARS-COV-2 COVID-19 2021-03-24 Completed Unive rsity of PFIZER VACCINE 00:00:00 [facility] Vital Signs Vital Name Observation Time Observation Value Comments Source Systolic blood 2020-02-23 14:58:00 146 mm[Hg] Univer sity of pressure [facility] Diastolic blood 2020-02-23 14:58:00 96 mm[Hg] Unive rsity of pressure [facility] Heart rate 2020-02-23 14:58:00 114 /min Universi ty of [facility] Body temperature 2020-02-23 14:56:00 36.94 Tessa Univ ersity of [facility] Respiratory rate 2020-02-23 14:56:00 18 /min Univ ersity of [facility] Body height 2020-02-23 14:56:00 162.6 cm Universi ty of [facility] Body weight 2020-02-23 14:56:00 108.863 kg Universi ty of [facility] BMI 2020-02-23 14:56:00 41.20 kg/m2 Universi ty of [facility] Oxygen saturation in 2020-02-23 14:56:00 99 /min University of Arterial blood by [facility] Pulse oximetry [place] Systolic blood 2020-02-23 14:58:00 146 mm[Hg] Univer sity of pressure [facility] Diastolic blood 2020-02-23 14:58:00 96 mm[Hg] Unive rsity of pressure [facility] Heart rate 2020-02-23 14:58:00 114 /min Universi ty of [facility] Body temperature 2020-02-23 14:56:00 36.94 Tessa Univ ersity of [facility] Respiratory rate 2020-02-23 14:56:00 18 /min Univ ersity of [facility] Body height 2020-02-23 14:56:00 162.6 cm Universi ty of [facility] Body weight 2020-02-23 14:56:00 108.863 kg Universi ty of [facility] BMI 2020-02-23 14:56:00 41.20 kg/m2 Universi ty of [facility] Oxygen saturation in 2020-02-23 14:56:00 99 /min University of Arterial blood by [facility] Pulse oximetry Branch Systolic blood 2020-02-01 21:03:00 139 mm[Hg] Univer sity of pressure [facility] [place] Branch Diastolic blood 2020-02-01 21:03:00 89 mm[Hg] Unive rsity of pressure [facility] Heart rate 2020-02-01 21:03:00 92 /min Universi ty of [facility] Body temperature 2020-02-01 21:03:00 37.06 Tessa Univ ersity of [facility] [place] Branch Respiratory rate 2020-02-01 21:03:00 17 /min Univ ersity of [facility] [place] Branch Body height 2020-02-01 21:03:00 162.6 cm Universi ty of [place] [facility] Body weight 2020-02-01 21:03:00 106.595 kg Universi ty of [place] [facility] BMI 2020-02-01 21:03:00 40.34 kg/m2 Universi ty of [facility] [place] Branch Oxygen saturation in 2020-02-01 21:03:00 98 /min University of Arterial blood by [facility] Pulse oximetry Branch Systolic blood 2020-02-01 21:03:00 139 mm[Hg] Univer sity of pressure [facility] [place] Branch Diastolic blood 2020-02-01 21:03:00 89 mm[Hg] Unive rsity of pressure [facility] Heart rate 2020-02-01 21:03:00 92 /min Universi ty of [place] [facility] Body temperature 2020-02-01 21:03:00 37.06 Tessa Univ ersity of [facility] Respiratory rate 2020-02-01 21:03:00 17 /min Univ ersity of [facility] Body height 2020-02-01 21:03:00 162.6 cm Universi ty of [place] [facility] Body weight 2020-02-01 21:03:00 106.595 kg Universi ty of [place] [facility] BMI 2020-02-01 21:03:00 40.34 kg/m2 Universi ty of [facility] [place] Branch Oxygen saturation in 2020-02-01 21:03:00 98 /min University of Arterial blood by [facility] Pulse oximetry Branch Procedures Procedure Date / Time Performing Clinician Source Performed POCT SARS-COV-2 ANTIGEN 2022-08-19 15:51:00 Alexys Sam [facility] (BINAX NOW) Medical Branch COVID-19 (ID NOW RAPID 2022-08-17 15:28:00 Vikas More Un [facility] TESTING) Medical Branch LAB ONLY COVID 2022-08-17 15:28:00 Vikas More [facility] INTERPRETATION Medical Branch CONSENT/REFUSAL FOR 2021-02-24 22:08:57 Doctor Unassigned, Unive [facility] DIAGNOSIS AND TREATMENT [place] [facility] ASSIGNMENT OF BENEFITS 2021-02-24 22:08:43 Doctor Unassigned, [facility] [place] [facility] XR CHEST 2 VW 2020-12-02 14:39:32 Ashley Sebastian [facility] A [facility] POCT GRP A STREP 2020-02-23 00:00:00 Radhika Oscar [facility] (MOLECULAR) Medical Branch Encounters Start End Encounter Admission Attending Care Care Encounter Source Date/Time Date/Time Type Type Clinicians Facility Department ID 2022-11-09 2022-11-[address] [facility] [id number] Univers 14:00:00 15:07:31 RUDDY greco [facility] 2022-11-09 2022-11-09 [facility] 1.2.840.114 [id number] Univers 14:00:00 15:07:31 ne Visit Ruddy CERVANTES [id number] ity of [place] [id number] Elkin palma PROFESSIO [phone] Wy maile [facility] 044 Branch BUILDING 2022-08-19 2022-08-19 Executive Vice President Business Development Only, Ang Db Test [facility] 1.2.8 40.114 [id number] Univers 09:30:00 09:44:17 Visit Unknown, Attending HEALTH [id number] ity of Eduarda Mccollum [id number] [place] CATERINA?BLEA [phone] Wy maile [facility] 370 Branch MEDICAL OFFICE BUILDING 2022-08-19 2022-08-[address] [facility] [id number] Univers 09:30:00 09:30:00 EDUARDA greco [facility] 2022-08-19 2022-08-19 Outpatient R UNKNOWN, [facility] [id number] Univers 09:15:00 09:15:00 ATTENDING ity [facility] 2022-08-17 2022-08-17 Nurse Nurse, Jeffrey Toledo [facility] 1.2.840.114 [id number] Univers 09:40:00 09:40:00 Visit Derik, Vikas CERVANTES [id number] 0 ity of [place] [id number] [place] PROFESS[place] [phone] Wy dical NAL [address] [place] [address] 2022-08-17 2022-08-17 Out[address]ERIK VIKAS [facility] [id number] Univers 09:40:00 09:22:13 DERIK, OGLETICIAChristie ity [facility] 2022-08-17 2022-08-17 Telephone Derik [facility] 1.2.840.114 [id number] Univers 00:00:00 00:00:00 Vikas CERVANTES [id number] ity of [place] [id number] [place] PROFESS[place] [phone] Wy dical [address] 2022-08-17 2022-08-17 Telephone Derik [facility] 1.2.840.114 [id number] Univers 00:00:00 00:00:00 Vikas CERVANTES [id number] ity of [place] [id number] [place] PROFESS[place] [phone] Wy dical NAL [address] [place] [address] 2022-03-17 2022-03-17 Laboratory Only, Jeffrey Pob2 Test [facility] 1.2 .840.114 [id number] Univers 15:00:00 15:15:00 Only Baron Ruiz 350.1.13 .10 ity [place] [id number] [place] PROFESS[place] [id number] Wy dical NAL [address] [facility] 2022-03-17 2022-03-[address] [facility] [id number] Univers 15:00:00 08:47:55 BARON ity [facility] 2022-03-16 2022-03-16 [facility] [id number] Univers 08:00:00 08:50:32 BARON greco [facility] 2022-03-16 2022-03-16 Executive Vice President Business Development Only, Adc Pob2 Test [facility] 1.2 .840.114 [id number] Univers 08:00:00 08:15:00 Visit Baron Ruiz 350.1.13 .[address] [facility] [facility] [id number] PROFESS[place] [phone] Wy dical [address] 2022-02-17 2022-02-17 Laboratory Only, Adc Pob2 Test [facility] 1.2 .840.114 [id number] Univers 15:15:00 15:30:00 Only Baron Ruiz 350.1.13 .[address] [facility] [id number] [place] PROFESSIO [phone] Wy dical NAL [address] [place] [address] 2022-02-17 2022-02-[address] [facility] [id number] Univers 15:15:00 09:18:02 BARON greco [facility] 2021-08-25 2021-08-25 Laboratory Only, Adc Pob2 Test [facility] 1.2 .840.114 [id number] Univers 14:30:00 14:45:00 Only Baron Ruiz 350.1.13 .[address] [facility] [id number] [place] PROFESSIO [phone] Wy dical NAL [address] [place] [address] 2021-08-25 2021-08-[address] [facility] [facility] [id number] Univers 14:30:00 12:06:35 BARON greco [facility] 2021-04-18 2021-04-18 Telemedici [facility] [id number] Univers 17:12:12 17:32:12 ne Visit Lexy Cervantes [id number] ity [id number] [phone] Wy dic[address] 2021-04-18 2021-04-[address] [facility] [id number] Univers 14:00:00 14:00:00 LEXY [facility] 2021-04-18 2021-04-[address] [facility] [id number] Univers 14:00:00 14:00:00 LEXY greco [facility] 2021-04-15 2021-04-15 [facility] [id number] Univers 15:10:00 15:10:00 [facility] 2021-03-24 2021-03-24 Outpatient Bekah [facility] [id number] Univers 15:50:00 15:50:00 [facility] 2021-03-07 2021-03-07 Telephone [facility] [id number] Univers 00:00:00 00:00:00 Claritza A Health [id number] i ty of [place] [id number] [place] Professio [phone] [address] Office [facility] 2021-03-07 2021-03-07 Telephone [facility] [id number] Univers 00:00:00 00:00:00 Claritza A Health [id number] i ty of [place] [id number] [place] Profess[place] [phone] [address] Office [facility] 2021-03-07 2021-03-07 Telephone Lab, [facility] [id number] Univers 00:00:00 00:00:00 Fam Pob I Health [id number] [place] [id number] [place] Profess[place] [phone] [address] One 2021-03-05 2021-03-[address] [facility] [id number] Univers 16:40:00 16:40:00 CLARITZA [facility] 2021-03-05 2021-03-05 Laboratory Lab, Adc Fam Pob I [facility] 1.2. [id number] [id number] Univers 14:48:22 15:08:22 Only KaleighIsae Mitesh Brown [id number] [place] of [place] [id number] [place] [phone] [place] [address] [address] One 2021-02-24 2021-02-24 [facility] [id number] Univers 17:12:55 23:59:00 Encounter Torritito Cervantes [id number] [id number] [phone] [facility] [address] 2021-02-24 2021-02-24 Outpatient R [facility] [id number] Univers 00:00:00 00:00:00 TORRI greco o f [facility] 2021-02-24 2021-02-24 Orders Doctor HOLLY [id number] [facility] 00:00:00 00:00:00 Only Unassigned, LEA [id number] ity of [place] [facility] [id number] [place] as [phone] [facility] [address] 2021-02-19 2021-02-19 Outpatient R [facility] [id number] Univers 16:30:00 16:30:00 TORRI greco o f [facility] 2021-02-19 2021-02-19 Telemedici [facility] [id number] Univers 09:17:36 15:17:21 ne Visit Torri Ann-Marie [id number] [id number] [phone] Wy dicin nal [address] 2020-12-02 2020-12-02 [facility] 1.2.840.114 [id number] Univers 09:09:55 23:59:00 Encounter Ashley Cervantes [id number] it[id number] [phone] [facility] [address] 2020-12-02 2020-12-02 Outpatient R [facility] [id number] Univers 00:00:00 00:00:00 ASHLEY ity [facility] 2020-12-02 2020-12-02 Case [facility]AD[facility] [id number] Univers 00:00:00 00:00:00 Management Ashley Cervantes [id number] ity [facility] [id number] [phone] [facility] 231 [facility] 2020-09-18 2020-09-18 Outpatient R [facility] [id number] Univers 15:00:00 15:00:00 CLARITZA bettsangel [facility] 2020-09-18 2020-09-18 Laboratory Lab, [facility] Pob I [facility] 1.2. 840.114 [id number] Univers 08:13:46 08:33:46 Only Claritza [facility] [id number] it[place] of [place] [id number] [place] Profess[place] [phone] [facility] [address] Office [facility] 2020-07-10 2020-07-10 Executive Vice President Business Development Lab, [facility] Pob I [facility] 1.2. 840.114 [id number] Univers 11:47:22 12:07:22 Visit Claritza [facility] [id number] [place] [id number] [place] Professio [phone] Wy dical [facility] [address] Office [facility] 2020-07-10 2020-07-10 Outpatient R [facility] [id number] Univers 11:40:00 11:40:00 CLARITZA ity [facility] 2020-02-25 2020-02-25 Telephone HOLLY Farris [id number] Univers 00:00:00 00:00:00 Claritza TATE [id number] i ty [facility] [id number] [place] as [phone] [address] 2020-02-25 2020-02-25 Telephone HOLLY Farris [id number] 00:00:00 00:00:00 Claritzaheidi TATE [id number] [facility] [id number] [phone] [facility] 2020-02-23 2020-02-23 Urgent Pob1, Acute Care Clinic [facility] 1. 2.840.114 [id number] [facility] 09:48:47 10:24:57 Care Sarah, [facility] [id number] ity of [place] [id number] [place] Professio [phone] [address] Office Building [facility] 2020-02-23 2020-02-23 Urgent Pob1, Acute [facility] 1.2.840.114 [id number] 09:48:47 10:24:57 Care [facility] [id number] [place] [id number] Professio [phone] [place] [address] Office Building [facility] 2020-02-23 2020-02-23 Outpatient R [facility] [id number] Univers 10:20:00 10:20:00 PARISA greco [facility] 2020-02-01 2020-02-02 Urgent Provider, [facility] 1.2.840.114 [id number] Univers 15:19:08 09:58:50 Care Claritza [facility] [id number] it[place] [id number] [place] Professio [phone] [address] Office Building [facility] 2020-02-01 2020-02-02 Urgent Provider, [facility] [id number] 15:19:08 09:58:50 Care [facility] [id number] Care [place] [id number] Professio [phone] [place] [address] Office Building [facility] 2020-02-01 2020-02-01 Outpatient R [facility] [id number] Univers 15:40:00 15:40:00 [facility]-22 2019-11-22 Outpatient Raju_P MMG MMG [id number] [place] 04:53:00 04:53:00 0325 [facility] Results Test Description Test Time Test Comments Results Result Comments Source POCT SARS-COV-2 ANTIGEN (BINAX NOW) 2022-08-19 15:51:00 Test Item Value Reference Range Interpretation Comme nts POCT SARS-COV-2 ANTIGEN (test code = 26402-3) Not Detected Not Dete cted On board controls acceptable with C Line (test code = Yes 3574) Lab Interpretation (test code = 80724-5) Normal [facility] [id number] 16:26:10No acute cardiopulmonary disease. CHEST 2 VIEWS: HISTORY:pain in upper chest with breathing and decreased breath sounds inRLL, also pain in RLL. TECHNIQUE:: ?PA and lateral views of the chest are obtained. FINDINGS: The lungs are clear. The heart size and mediastinal silhouetteare normal. No pleural effusion or pneumothorax is seen. Possibly an old fracture of the right seventh rib laterally. [facility], Radiant Results Inft User - 12/02/2020 11:27 AM CDTCHEST 2 VIEWS:HISTORY:pain in upper chest with breathing and decreased breath sounds inRLL, also pain in RLL.TECHNIQUE:: PA and lateral views of the chest are obtained. FINDINGS: The lungs are clear. The heart size and mediastinal silhouetteare normal. No pleural effusion or pneumothorax is seen.Possibly an old fracture of the right seventh rib laterally.IMPRESSIONNo acute cardiopulmonary disease.[facility] ([facility]LEC[facility])2020-02-23 15:36:00 Test Item Value Reference Range Interpretation Comments POCT GP A STREP (test code = neg Negative - Negative 89104-4) [facility]
[2023-02-01] MEDS ORDERED: MECLIZINE HCL 12.5 MG TAB ONE (17:37)
[2023-02-01] MEDS ORDERED: NA CHLORIDE 0.9% 1,000 ML ONE (18:46)
[2023-02-01] MEDS ORDERED: DIAZEPAM 10 MG/2 ML INJ SYRINGE ONE (18:46)
[2023-02-01 19:07] LABS: Hematocrit 40.1 % (36.0-45.0); Lymphocytes % 19.3 % (15.3-44.8); MCV 82.5 fL (80-100); MPV 7.6 fL (7.6-11.3); RBC Red Blood Cell Count 4.86 M/uL (3.86-4.86)
--- NOTE | 2023-02-01 19:19 | RAD REPORT ---
EXAM DESCRIPTION: CT - Head Brain Wo Cont - 02/01/2023 7:12 pm CLINICAL HISTORY: vertigo Headache, drowsiness COMPARISON: <Comparisons> TECHNIQUE: All CT scans are performed using dose optimization technique as appropriate and may inclu de automated exposure control or mA/KV adjustment according to patient size. FINDINGS: No intracranial hemorrhage, hydrocephalus or extra-axial fluid collection.No areas of brai n edema or evidence of midline shift. The paranasal sinuses and mastoids are clear. The calvarium is intact. IMPRESSION: No acute intracranial abnormality.
[2023-02-01 19:27] LABS: Albumin 3.1 g/dL (3.4-5.0); Bilirubin Total 0.2 mg/dL (0.2-1.0); Potassium 3.3 mEq/L (3.5-5.1); Protein, Total 8.2 g/dL (6.4-8.2); Troponin High Sensitivity 6.2 pg/mL (<58.9)
--- NOTE | 2023-02-01 19:49 | ER ---
Nurse's Notes [facility] Name: Melissa Jacobson Age: 27 yrs Sex: Female : 1995 Arrival Date: 02/01/2023 Time: 17:03 Bed 11 Private MD: Diagnosis: Benign paroxysmal vertigo Presentation: 02/01 17:10 Chief complaint: Intermittent dizziness x 2 months, became constant 2 days ago. Also hb c/o nausea. Denies headache. Coronavirus screen: At this time, the client does not indicate any symptoms associated with coronavirus-19. Ebola Screen: No symptoms or risks identified at this time. Initial Sepsis Screen: Does the patient meet any 2 criteria? No. Patient's initial sepsis screen is negative. Does the patient have a suspected source of infection? No. Patient's initial sepsis screen is negative. Risk Assessment: Do you want to hurt yourself or someone else? Patient reports no desire to harm self or others. Onset of symptoms was November 2022. 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 - Social history:: Smoking status: Patient denies any tobacco usage or history of. - Family history:: not pertinent. Screenin:27 [facility] ED Fall Risk Assessment (Adult) History of falling in the last 3 months, mb9 including since admission No falls in past 3 months (0 pts) Confusion or Disorientation No (0 pts) Intoxicated or Sedated No (0 pts) Impaired Gait No (0 pts) Mobility Assist Device Used No (0 pt) Altered Elimination No (0 pt) Score/Fall Risk Level 0 - 2 = Low Risk Oriented to surroundings, Maintained a safe environment, Educated pt \T\ family on fall prevention, incl call for assistance when getting out of bed. Abuse screen: Denies threats or abuse. Nutritional screening: No deficits noted. Tuberculosis screening: No symptoms or risk factors identified. Assessment: 17:42 General: Appears in no apparent distress. Behavior is calm, cooperative, appropriate hb for age. Pain: Denies pain. Neuro: Norris Agitation-Sedation Scale (RASS): 0 - Alert and Calm Level of Consciousness is awake, alert, obeys commands, Oriented to person, place, time, situation, Appropriate for age Reports dizziness, that gets worse upon standing and when rotating head. Respiratory: Airway is patent Respiratory effort is even, unlabored, Respiratory pattern is regular, symmetrical. GI: Reports nausea. Derm: Skin is pink, warm \T\ dry. Musculoskeletal: Range of motion: intact in all extremities. 19:53 Reassessment: Patient and/or family updated on plan of care and expected duration. Pain mb9 level reassessed. Patient is alert, oriented x 3, equal unlabored respirations, skin warm/dry/pink. Patient states feeling better. Patient states symptoms have improved. 19:53 General: pt ambulated with even and steady gait. pt reports slight dizziness but as6 wanting to go home . Vital Signs: 17:10 BP 164 / 97; Pulse 80; Resp 16; Temp 97.4; Pulse Ox 100% on R/A; Weight 111.13 kg; hb Height 5 ft. 4 in. ; Pain 0/10; 19:56 BP 117 / 57; Pulse 94; Resp 18 S; Pulse Ox 97% on R/A; as6 17:10 Body Mass Index 42.05 (111.13 kg, 162.56 cm) hb 17:10 Pain Scale: Adult hb ED Course: 17:06 Patient arrived in ED. im 17:10 Abraham Naik MD is Attending Physician. rt 17:12 Triage completed. hb 17:12 Nanette Calixto, RN is Primary Nurse. nj1 17:12 Arm band placed on. hb 17:27 Placed in gown. Bed in low position. Call light in reach. Side rails up X 1. Client mb9 placed on continuous cardiac and pulse oximetry monitoring. NIBP monitoring applied. 17:28 No provider procedures requiring assistance completed. mb9 17:42 Tavia Flores, RN is Primary Nurse. hb 17:44 Primary Nurse role handed off by Tavia Flores, RN mb9 17:44 Radha Mcqueen, ARMANDO is Primary Nurse. mb9 19:00 Troponin High Sensitivity Sent. mb9 19:00 Test, Serum Sent. mb9 19:00 CMP Sent. mb9 19:00 CBC with Diff Sent. mb9 19:00 Inserted saline lock: 22 gauge in right antecubital area, using aseptic technique. mb9 19:14 CT Head Brain wo Cont In Process Unspecified. EDMS 19:47 Carmen Reynolds MD is Referral Physician. rt 19:53 IV discontinued, intact, bleeding controlled, No redness/swelling at site. Pressure mb9 dressing applied. Administered Medications: 17:34 Drug: Meclizine PO 50 mg Route: PO; mb9 19:55 Follow up: Response: No adverse reaction as6 19:00 Drug: Diazepam IVP 10 mg Route: IVP; Site: right antecubital; mb9 19:55 Follow up: Response: No adverse reaction as6 19:00 Drug: NS 0.9% IV 1000 ml Route: IV; Rate: 1 bolus; Site: right antecubital; mb9 19:55 Follow up: Response: No adverse reaction; IV Status: Completed infusion; IV Intake: as6 1000ml Medication: 17:27 VIS not applicable for this client. mb9 Intake: 19:55 IV: 1000ml; Total: 1000ml. as6 Outcome: 19:48 Discharge ordered by MD. rt 19:54 Discharged to home ambulatory, with family. as6 19:54 Condition: stable 19:54 Discharge instructions given to patient, Instructed on discharge instructions, follow up and referral plans. medication usage, Demonstrated understanding of instructions, follow-up care, medications, Prescriptions given X 1. 19:56 Patient left the ED. as6 Signatures: Dispatcher [employer] EDOR Tavia Flores RN RN Leon Brown RN RN as6 Radha Mcqueen RN RN mb9 Abraham Naik MD MD rt Nanette Calixto RN RN nj1 Hyacinth Nelson
--- NOTE | 2023-02-01 19:49 | EDPHYS ---
Physician Documentation [facility] Name: Melissa Jacobson Age: 27 yrs Sex: Female : 1995 Arrival Date: 02/01/2023 Time: 17:03 Bed 11 Private MD: ED Physician Abraham Naik HPI: 02/01 19:08 This 27 yrs old Female presents to ER via Ambulatory with complaints of rt Dizziness. 19:08 Patient presents to the ED with intermittent dizziness described as the room spinning rt with associated nausea that has been present for about 2 months. She states over the past few days, it has been constant, worse when she turns her head. Denies vomiting. Patient denies other acute complaints at this time. Symptoms are moderate severity, no other aggravating or alleviating factors.. 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 - Social history:: Smoking status: Patient denies any tobacco usage or history of. - Family history:: not pertinent. ROS: 19:08 Constitutional: Negative for fever, chills, and weight loss, Cardiovascular: Negative rt for chest pain, palpitations, and edema, Respiratory: Negative for shortness of breath, cough, wheezing, and pleuritic chest pain, MS/Extremity: Negative for injury and deformity, Skin: Negative for injury, rash, and discoloration, Psych: Negative for depression, anxiety, suicide ideation, homicidal ideation, and hallucinations. 19:08 Abdomen/GI: Positive for nausea, Negative for abdominal pain. 19:08 Neuro: Positive for dizziness, Negative for altered mental status. Exam: 19:08 Constitutional: This is a well developed, well nourished patient who is awake, alert, rt and in no acute distress. Head/Face: Normocephalic, atraumatic. Chest/axilla: Normal chest wall appearance and motion. Nontender with no deformity. No lesions are appreciated. Cardiovascular: Regular rate and rhythm with a normal S1 and S2. No gallops, murmurs, or rubs. Normal PMI, no JVD. No pulse deficits. Respiratory: Lungs have equal breath sounds bilaterally, clear to auscultation and percussion. No rales, rhonchi or wheezes noted. No increased work of breathing, no retractions or nasal flaring. Abdomen/GI: Soft, non-tender, with normal bowel sounds. No distension or tympany. No guarding or rebound. No evidence of tenderness throughout. Skin: Warm, dry with normal turgor. Normal color with no rashes, no lesions, and no evidence of cellulitis. MS/ Extremity: Pulses equal, no cyanosis. Neurovascular intact. Full, normal range of motion. Neuro: Awake and alert, GCS 15, oriented to person, place, time, and situation. Cranial nerves II-XII grossly intact. Motor strength 5/5 in all extremities. Sensory grossly intact. Cerebellar exam normal. Normal gait. Psych: Awake, alert, with orientation to person, place and time. Behavior, mood, and affect are within normal limits. 19:08 Eyes: Extraocular muscles intact, 2-3 beats of right going nystagmus, head impulse and test of skew negative.. Vital Signs: 17:10 BP 164 / 97; Pulse 80; Resp 16; Temp 97.4; Pulse Ox 100% on R/A; Weight 111.13 kg; hb Height 5 ft. 4 in. ; Pain 0/10; 19:56 BP 117 / 57; Pulse 94; Resp 18 S; Pulse Ox 97% on R/A; as6 17:10 Body Mass Index 42.05 (111.13 kg, 162.56 cm) hb 17:10 Pain Scale: Adult hb MDM: 17:15 Patient medically screened. rt 19:49 Differential diagnosis: Dysrhythmia, electrolyte disturbance, central vertigo, rt labyrinthitis, Mnire's disease. Data reviewed: vital signs, nurses notes, lab test result(s), radiologic studies. Consideration of Admission/Observation Escalation of care including admission/observation considered. I considered the following discharge prescriptions or medication management in the emergency department Medications were administered in the Emergency Department. See MAR. Independent interpretation of the following test(s) in the Emergency Department CT Scan: My interpretation is No hemorrhage seen on interpretation of CT scan images. Test considered but Not performed: MRI: Hints exam suggestive of a peripheral vertigo, does not require MRI to rule out central vertigo. Counseling: I had a detailed discussion with the patient and/or guardian regarding: the historical points, exam findings, and any diagnostic results supporting the discharge/admit diagnosis, lab results, radiology results, the need for outpatient follow up, to return to the emergency department if symptoms worsen or persist or if there are any questions or concerns that arise at home. 02/01 18:34 Order name: CBC with Diff; Complete Time: 19:33 rt 02/01 18:34 Order name: CMP; Complete Time: 19:33 rt 02/01 18:34 Order name: Test, Serum; Complete Time: 19:47 rt 02/01 18:34 Order name: Troponin High Sensitivity; Complete Time: 19:33 rt 02/01 18:34 Order name: CT Head Brain wo Cont; Complete Time: 19:33 rt Administered Medications: 17:34 Drug: Meclizine PO 50 mg Route: PO; mb9 19:55 Follow up: Response: No adverse reaction as6 19:00 Drug: Diazepam IVP 10 mg Route: IVP; Site: right antecubital; mb9 19:55 Follow up: Response: No adverse reaction as6 19:00 Drug: NS 0.9% IV 1000 ml Route: IV; Rate: 1 bolus; Site: right antecubital; mb9 19:55 Follow up: Response: No adverse reaction; IV Status: Completed infusion; IV Intake: as6 1000ml Disposition Summary: 02/01/23 19:48 Discharge Ordered Location: Home rt Problem: new rt Symptoms: have improved rt Condition: Stable rt Diagnosis - Benign paroxysmal vertigo rt Followup: rt - With: Carmen Reynolds MD - When: 2 - 3 days - Reason: Discharge Instructions: - Discharge Summary Sheet rt - Benign Positional Vertigo rt Forms: - Work release form mb9 - Medication Reconciliation Form rt - Thank You Letter rt - Antibiotic Education rt - Prescription Opioid Use rt Prescriptions: - Meclizine 25 mg Oral Tablet - take 1 tablet by ORAL route every 8 hours As needed; 30 tablet; Refills: 0, rt Product Selection Permitted Signatures: Dispatcher [employer] Tavia Weiner RN RN Radha Mcqueen RN RN mb9 Abraham Naik MD MD rt Leon Brown RN as6
[2023-02-01 21:00] VITALS: TEMP 97.4
[2023-02-01 21:02] VITALS: BP 117/57; O2SAT 97
== END 2023-02-01 19:56 | disposition home or self-care (01) ==
LOC: ER 17:03
DX: H81.10 Benign paroxysmal vertigo, unspecified ear (principal)
CPT/HCPCS: 96361; 85025; 36415; 84703; 84484; 80053; 70450; 96374; 99284; J8597; J3360; J7030

== ENCOUNTER 2023-02-02 22:23 | Emergency (ER) | payer BC ==
--- OUTSIDE RECORDS SUMMARY | 2023-02-02 22:30 | XMS REPORT | Continuity of Care Document ---
:1995 Author Organization [facility] t Address [address] [place] [address] Care Team Providers Name Role Phone Tiffanie Kristy Primary Care Physician RUDDY BARONE Attending Clinician Unavailable Barone PIPED POCKET MACHINE OPERATOR, Ruddy Attending Clinician Only, Ang Db Test Attending Clinician Unavailable Unknown, Attending Attending Clinician Unavailable Ebrahim PIPED POCKET MACHINE OPERATOR Rania Attending Clinician EBCRISTÓBAL RANIA Attending Clinician [...] TORRI BYNUM Attending Clinician Unavailable Doctor Unassigned, [place] Attending Clinician Unavailable Ashley Sebastian MD Attending Clinician [phone] ASHLEY SEBASTIAN Attending Clinician Unavailable Pob1, Acute [facility] Attending Clinician Unavailable Parisa Ontiveros Attending Clinician PARISA REDMAN Attending Clinician Unavailable Provider, [facility] Attending Clinician Unavailable Padmini_Sha Attending Clinician Unavailable Padmini_Sha Admitting Clinician Unavailable Payers Payer Name Policy Type Policy Number Effective Date Expiration Date S ource [employer] [place] [id number] 2018 EMPLOYEE PLAN 00:00:00 [employer] [place] [id number] 2018 00:00:00 Problems Condition Condition Condition Status Onset Resolution Last Treating Co mments Source Name Details Category Date Date Treatment Clinician Date Non-recurr Non-recurr Disease Active U nivers ent acute ent acute 8-20 ity of serous serous 00:00: [place] otitis otitis 00 Medical media of media of Branch right ear right ear Acute ear Acute ear Disease Active Uni vers pain, pain, 8-20 ity of right right 00:00: [address] Acute ear Acute ear Disease Active Uni vers pain, pain, 8-20 ity of right right 00:00: [address] No known No known Disease Unive rs active active ity of problems problems [facility] Allergies, Adverse Reactions, Alerts Allergy Allergy Status Severity Reaction(s) Onset Inactive Treating Comm ents Source Name Type Date Date Clinician NO KNOWN Drug Active Univers ALLERGIE Class ity of S [facility] Social History Social Habit Start Date Stop Date Quantity Comments Source Tobacco use and 2022-11-09 2022-11-09 Smokeless tobacco Un iversity of exposure 00:00:00 00:00:00 non-user [facility] Exposure to 2022-08-09 2022-08-19 Not sure [facility]-CoV-2 00:00:00 09:37:00 [facility] (event) [place] Sex Assigned At [birth year] Universit y of 00:00:00 00:00:00 [facility] Smoking Status Start Date Stop Date Source Never smoked tobacco [facility] Medications Ordered Filled Start Stop Current Ordering Indication Dosage Frequency Signature Comments Components Source Medication Medication Date Date Medication? Clinician (SIG) Name Name ofloxacin Yes [id number] 4[drp] Place 4 Univers 0.3 % 3-13 Drops in ity of ophthalmic 00:00: [place] ear 4 [place] solution 00 (four) Medical times Branch daily. benzonatate 2021-08 Yes [id number] 100mg Take 1 Univers (TESSALON 2-19 capsule by ity of PERLES) 100 00:00: mouth [place] mg capsule 00 every 8 Medica l (eight) Branch hours as needed for Cough. bromphenira 2021-08 Yes [id number] 5mL Take 5 mL Univers mine-pseudo 2-19 by mouth 4 it y of ephedrine-D 00:00: ([place] (BROMFED 00 times Medical DM) 2-30-10 daily as Bran ch mg/5 mL needed for syrup Congestion /Allergies , Cold symptoms or Cough. benzonatate 2021-08 Yes [id number] 100mg Take 1 Univers (TESSALON 2-19 capsule by ity of PERLES) 100 00:00: mouth [place] mg capsule 00 every 8 Medica l (eight) Branch hours as needed for Cough. bromphenira 2021-08 Yes [id number] 5mL Take 5 mL Univers mine-pseudo 2-19 by mouth 4 it y of ephedrine-D 00:00: ([place] (BROMFED 00 times Medical DM) 2-30-10 daily as Bran ch mg/5 mL needed for syrup Congestion /Allergies , Cold symptoms or Cough. molnupiravi 2021-08 Yes [id number] 800mg Take 4 Univers r 200 mg 2-19 capsules ity of capsule 00:00: by mouth [place] 00 every 12 Medical (twelve) Branch hours. benzonatate 2021-08 Yes [id number] 100mg Take 1 Univers (TESSALON 2-19 capsule by ity of PERLES) 100 00:00: mouth [place] mg capsule 00 every 8 Medica l (eight) Branch hours as needed for Cough. bromphenira 2021-08 Yes [id number] 5mL Take 5 mL Univers mine-pseudo 2-19 by mouth 4 it y of ephedrine-D 00:00: (four[place] (BROMFED 00 times Medical DM) 2-30-10 daily as Bran ch mg/5 mL needed for syrup Congestion /Allergies , Cold symptoms or Cough. molnupiravi 2021-08 Yes [id number] 800mg Take 4 Univers r 200 mg -19 capsules ity of capsule 00:00: by mouth [place] 00 every 12 Medical (twelve) Branch hours. benzonatate 2021-08- No [id number] 100mg Take 1 Univers (TESSALON 10-18 capsule by ity of TODD) 100 00:00: 00:[place] mg capsule 00 :00 every 8 Medica l (eight) Branch hours as needed for Cough. bromphenira 2021-08- No [id number] 5mL Take 5 mL Univers mine-pseudo 10-18 by mouth 4 i ty of ephedrine-D 00:00: 00:00 (four) [place] as M (BROMFED 00 :00 times Medical DM) 2-30-10 daily as Bran ch mg/5 mL needed for syrup Congestion /Allergies , Cold symptoms or Cough. molnupiravi 2021-08- No [id number] 800mg Take 4 Univers r 200 mg 10-18 capsules ity of capsule 00:00: 00:00 by mouth [place] 00 :00 every 12 Medical (twelve) Branch hours. amoxicillin 2021-08- No [id number] 1{tbl} Take 1 Univers -clavulanat 2-19 12-27 tablet by it y of e 00:00: 05:59 mouth in [place] (AUGMENTIN) 00 :00 the Medical 875-125 mg morning Branch per tablet and 1 tablet in the evening. Do all this for 7 days. amoxicillin 2021-08- No [id number] 1{tbl} Take 1 Univers -clavulanat 2-19 12-27 tablet by it y of e 00:00: 05:59 mouth in [place] (AUGMENTIN) 00 :00 the Medical 875-125 mg morning Branch per tablet and 1 tablet in the evening. Do all this for 7 days. amoxicillin 2021-08- No [id number] 1{tbl} Take 1 Univers -clavulanat 2-19 12-27 tablet by it y of e 00:00: 05:59 mouth in [place] (AUGMENTIN) 00 :00 the Medical 875-125 mg morning Branch per tablet and 1 tablet in the evening. Do all this for 7 days. amoxicillin Yes [id number] 1{tbl} Take 1 Univers -clavulanat 8-20 tablet by ity of e 00:00: mouth 2 [place] (AUGMENTIN) 00 (two) Medical 875-125 mg times Branch per tablet daily. ibuprofen 2020-0 Yes [id number] 600mg Take 1 Univers 600 mg 8-20 tablet by ity of tablet 00:00: mouth [place] 00 every 6 Medical (six) Branch hours as needed for Pain (scale 4-6). amoxicillin 2020-0 Yes [id number] 1{tbl} Take 1 Univers -clavulanat 8-20 tablet by ity of e 00:00: mouth 2 [place] (AUGMENTIN) 00 (two) Medical 875-125 mg times Branch per tablet daily. ibuprofen 2020-0 Yes [id number] 600mg Take 1 Univers 600 mg 8-20 tablet by ity of tablet 00:00: mouth [place] 00 every 6 Medical (six) Branch hours as needed for Pain (scale 4-6). amoxicillin 2020-0 Yes [id number] 1{tbl} Take 1 Univers -clavulanat 8-20 tablet by ity of e 00:00: mouth 2 [place] (AUGMENTIN) 00 (two) Medical 875-125 mg times Branch per tablet daily. ibuprofen 2020-0 Yes [id number] 600mg Take 1 Univers 600 mg 8-20 tablet by ity of tablet 00:00: mouth [place] 00 every 6 Medical (six) Branch hours as needed for Pain (scale 4-6). amoxicillin 2020-0 Yes [id number] 1{tbl} Take 1 Univers -clavulanat 8-20 tablet by ity of e 00:00: mouth 2 [place] (AUGMENTIN) 00 (two) Medical 875-125 mg times Branch per tablet daily. ibuprofen 2020-0 Yes [id number] 600mg Take 1 Univers 600 mg 8-20 tablet by ity of tablet 00:00: mouth [place] 00 every 6 Medical (six) Branch hours as needed for Pain (scale 4-6). amoxicillin 2020-0 Yes [id number] 1{tbl} Take 1 Univers -clavulanat 8-20 tablet by ity of e 00:00: mouth 2 [place] (AUGMENTIN) 00 (two) Medical 875-125 mg times Branch per tablet daily. ibuprofen 2020-0 Yes [id number] 600mg Take 1 Univers 600 mg 8-20 tablet by ity of tablet 00:00: mouth [place] 00 every 6 Medical (six) Branch hours as needed for Pain (scale 4-6). amoxicillin 2020-0 Yes [id number] 1{tbl} Take 1 Univers -clavulanat 8-20 tablet by ity of e 00:00: mouth 2 [place] (AUGMENTIN) 00 (two) Medical 875-125 mg times Branch per tablet daily. ibuprofen 2020-0 Yes [id number] 600mg Take 1 Univers 600 mg 8-20 tablet by ity of tablet 00:00: mouth [place] 00 every 6 Medical (six) Branch hours as needed for Pain (scale 4-6). amoxicillin 2020-0 Yes [id number] 1{tbl} Take 1 Univers -clavulanat 8-20 tablet by ity of e 00:00: mouth 2 [place] (AUGMENTIN) 00 (two) Medical 875-125 mg times Branch per tablet daily. ibuprofen 2020-0 Yes [id number] 600mg Take 1 Univers 600 mg 8-20 tablet by ity of tablet 00:00: mouth [place] 00 every 6 Medical (six) Branch hours as needed for Pain (scale 4-6). amoxicillin 2020-0 Yes [id number] 1{tbl} Take 1 Univers -clavulanat 8-20 tablet by ity of e 00:00: mouth 2 [place] (AUGMENTIN) 00 (two) Medical 875-125 mg times Branch per tablet daily. ibuprofen 2020-0 Yes [id number] 600mg Take 1 Univers 600 mg 8-20 tablet by ity of tablet 00:00: mouth [place] 00 every 6 Medical (six) Branch hours as needed for Pain (scale 4-6). amoxicillin 2020-0 Yes [id number] 1{tbl} Take 1 Univers -clavulanat 8-20 tablet by ity of e 00:00: mouth 2 [place] (AUGMENTIN) 00 (two) Medical 875-125 mg times Branch per tablet daily. ibuprofen 2020-0 Yes [id number] 600mg Take 1 Univers 600 mg 8-20 tablet by ity of tablet 00:00: mouth [place] 00 every 6 Medical (six) Branch hours as needed for Pain (scale 4-6). amoxicillin 2020-0 Yes [id number] 1{tbl} Take 1 Univers -clavulanat 8-20 tablet by ity of e 00:00: mouth 2 [place] (AUGMENTIN) 00 (two) Medical 875-125 mg times Branch per tablet daily. ibuprofen Yes [id number] 600mg Take 1 Univers 600 mg 8-20 tablet by ity of tablet 00:00: mouth [place] 00 every 6 Medical (six) Branch hours as needed for Pain (scale 4-6). amoxicillin Yes [id number] 1{tbl} Take 1 Univers -clavulanat 8-20 tablet by ity of e 00:00: mouth 2 [place] (AUGMENTIN) 00 (two) Medical 875-125 mg times Branch per tablet daily. ibuprofen 2022- No [id number] 600mg Take 1 Univers 600 mg 8-20 03-13 tablet by ity of tablet 00:00: 00:00 mouth [place] 00 :00 every 6 Medical (six) Branch hours as needed for Pain (scale 4-6). ofloxacin 2020- No [id number] 5[drp] Place 5 Univers 0.3 % otic 6-05 06-16 Drops in ity of drops 00:00: 04:59 left ear 2 [place] 00 :00 (two) Medical times Branch daily for 10 days. ibuprofen 2020- No [id number] 600mg Take 1 Univers 600 mg 6-04 06-12 tablet by ity of tablet 00:00: 04:59 mouth 3 [place] 00 :00 (three) Medical times Branch daily with meals for 7 days. ciprofloxac 2019- 2020- No [id number] 4[drp] Place 4 Univers in-dexameth 6-04 06-12 Drops in ity of asone 00:00: 04:59 left ear 2 [place] (CIPRODEX) 00 :00 (two) Medical 0.3-0.1 % times Branch otic drops daily for 7 days. ibuprofen 2020- 2020- No [id number] 600mg Take 1 Univers 600 mg 6-04 06-12 tablet by ity of tablet 00:00: 04:59 mouth 3 [place] 00 :00 (three) Medical times Branch daily with meals for 7 days. ciprofloxac 2019- 2020- No [id number] 4[drp] Place 4 Univers in-dexameth 6-04 06-05 Drops in ity of asone 00:00: 00:00 left ear 2 [place] (CIPRODEX) 00 :00 (two) Medical 0.3-0.1 % times Branch otic drops daily for 7 days. ciprofloxac 2020-0 2020- No [id number] 4[drp] Place 4 Univers in-dexameth 6-04 06-04 Drops in ity of asone 00:00: 00:00 left ear 2 [place] (CIPRODEX) 00 :00 (two) Medical 0.3-0.1 % times Branch otic drops daily for 7 days. ciprofloxac 2020-0 2020- No [id number] 4[drp] Place 4 Univers in-dexameth 6-04 06-04 Drops in ity of asone 00:00: 00:00 left ear 2 [place] (CIPRODEX) 00 :00 (two) Medical 0.3-0.1 % times Branch otic drops daily for 7 days. No known No Univers medications ity [facility] No known No Univers medications ity [facility] No known No Univers medications ity [facility] No known No Univers medications ity [facility] No known No Univers medications ity [facility] No known No Univers medications ity [facility] No known No Univers medications ity [facility] No known No Univers medications ity [facility] No known No [facility] No known No Univers medications [facility] No known No Univers medications [facility] No known No Univers medications [facility] No known No Univers medications [facility] Immunizations Ordered Filled Immunization Date Status Comments [facility] e Immunization Name Name SARS-COV-2 COVID-19 2021-04-15 Completed Unive rsity of PFIZER VACCINE 00:00:00 [facility] [place] [facility] SARS-COV-2 COVID-19 2021-04-15 Completed Unive rsity of PFIZER VACCINE 00:00:00 [facility] [place] [facility] SARS-COV-2 COVID-19 2021-04-15 Completed Unive rsity of PFIZER VACCINE 00:00:00 [facility] SARS-COV-2 COVID-19 2021-04-15 Completed Unive rsity of PFIZER VACCINE 00:00:00 [place] [facility] SARS-COV-2 COVID-19 2021-04-15 Completed Unive rsity of PFIZER VACCINE 00:00:00 [facility] Branch SARS-COV-2 COVID-19 2021-04-15 Completed Unive rsity of PFIZER VACCINE 00:00:00 [facility] Branch SARS-COV-2 COVID-19 2021-04-15 Completed Unive rsity of PFIZER VACCINE 00:00:00 [facility] Branch SARS-COV-2 COVID-19 2021-04-15 Completed Unive rsity of PFIZER VACCINE 00:00:00 [facility] Branch SARS-COV-2 COVID-19 2021-04-15 Completed Unive rsity of PFIZER VACCINE 00:00:00 [facility] Branch SARS-COV-2 COVID-19 2021-04-15 Completed Unive rsity of PFIZER VACCINE 00:00:00 [facility] Branch SARS-COV-2 COVID-19 2021-04-15 Completed Unive rsity of PFIZER VACCINE 00:00:00 [facility] Branch SARS-COV-2 COVID-19 2021-03-24 Completed Unive rsity of PFIZER VACCINE 00:00:00 [facility] Branch SARS-COV-2 COVID-19 2021-03-24 Completed Unive rsity of PFIZER VACCINE 00:00:00 [facility] Branch SARS-COV-2 COVID-19 2021-03-24 Completed Unive rsity of PFIZER VACCINE 00:00:00 [facility] Branch SARS-COV-2 COVID-19 2021-03-24 Completed Unive rsity of PFIZER VACCINE 00:00:00 [facility] Branch SARS-COV-2 COVID-19 2021-03-24 Completed Unive rsity of PFIZER VACCINE 00:00:00 [facility] Branch SARS-COV-2 COVID-19 2021-03-24 Completed Unive rsity of PFIZER VACCINE 00:00:00 [facility] Branch SARS-COV-2 COVID-19 2021-03-24 Completed Unive rsity of PFIZER VACCINE 00:00:00 [facility] [place] [facility] SARS-COV-2 COVID-19 2021-03-24 Completed Unive rsity of PFIZER VACCINE 00:00:00 [facility] Branch SARS-COV-2 COVID-19 2021-03-24 Completed Unive rsity of PFIZER VACCINE 00:00:00 [facility] [place] [facility] SARS-COV-2 COVID-19 2021-03-24 Completed Unive rsity of PFIZER VACCINE 00:00:00 [facility] [place] [facility] SARS-COV-2 COVID-19 2021-03-24 Completed Unive rsity of PFIZER VACCINE 00:00:00 [facility] [place] [facility] Vital Signs Vital Name Observation Time Observation Value Comments Source Systolic blood 2020-02-23 14:58:00 146 mm[Hg] Univer sity of pressure [facility] Diastolic blood 2020-02-23 14:58:00 96 mm[Hg] Unive rsity of pressure [facility] Heart rate 2020-02-23 14:58:00 114 /min Universi ty of [facility] Body temperature 2020-02-23 14:56:00 36.94 Tessa Univ ersity of [facility] Respiratory rate 2020-02-23 14:56:00 18 /min Univ ersity of [facility] Body height 2020-02-23 14:56:00 162.6 cm Universi ty of [facility] Body weight 2020-02-23 14:56:00 108.863 kg Universi ty of [facility] BMI 2020-02-23 14:56:00 41.20 kg/m2 Universi ty of [facility] Oxygen saturation in 2020-02-23 14:56:00 99 /min University of Arterial blood by [facility] Pulse oximetry [place] Systolic blood 2020-02-23 14:58:00 146 mm[Hg] Univer sity of pressure [facility] Diastolic blood 2020-02-23 14:58:00 96 mm[Hg] Unive rsity of pressure [facility] Heart rate 2020-02-23 14:58:00 114 /min Universi ty of [facility] Body temperature 2020-02-23 14:56:00 36.94 Tessa Univ ersity of [facility] Respiratory rate 2020-02-23 14:56:00 18 /min Univ ersity of [facility] Body height 2020-02-23 14:56:00 162.6 cm Universi ty of [facility] Body weight 2020-02-23 14:56:00 108.863 kg Universi ty of [facility] BMI 2020-02-23 14:56:00 41.20 kg/m2 Universi ty of [facility] Oxygen saturation in 2020-02-23 14:56:00 99 /min University of Arterial blood by [facility] Pulse oximetry Branch Systolic blood 2020-02-01 21:03:00 139 mm[Hg] Univer sity of pressure [facility] Branch Diastolic blood 2020-02-01 21:03:00 89 mm[Hg] Unive rsity of pressure [facility] Heart rate 2020-02-01 21:03:00 92 /min Universi ty of [facility] Body temperature 2020-02-01 21:03:00 37.06 Tessa Univ ersity of [facility] Branch Respiratory rate 2020-02-01 21:03:00 17 /min Univ ersity of [facility] Branch Body height 2020-02-01 21:03:00 162.6 cm Universi ty of [place] [facility] Body weight 2020-02-01 21:03:00 106.595 kg Universi ty of [place] [facility] BMI 2020-02-01 21:03:00 40.34 kg/m2 Universi ty of [facility] Branch Oxygen saturation in 2020-02-01 21:03:00 98 /min University of Arterial blood by [facility] Pulse oximetry Branch Systolic blood 2020-02-01 21:03:00 139 mm[Hg] Univer sity of pressure [facility] Branch Diastolic blood 2020-02-01 21:03:00 89 mm[Hg] Unive rsity of pressure [facility] Heart rate 2020-02-01 21:03:00 92 /min Universi ty of [place] [facility] Body temperature 2020-02-01 21:03:00 37.06 Tessa Univ ersity of [facility] Respiratory rate 2020-02-01 21:03:00 17 /min Univ ersity of [facility] Body height 2020-02-01 21:03:00 162.6 cm Universi ty of [place] [facility] Body weight 2020-02-01 21:03:00 106.595 kg Universi ty of [place] [facility] BMI 2020-02-01 21:03:00 40.34 kg/m2 Universi ty of [facility] Branch Oxygen saturation in 2020-02-01 21:03:00 98 /min University of Arterial blood by [facility] Pulse oximetry Branch Procedures Procedure Date / Time Performing Clinician Source Performed POCT SARS-COV-2 ANTIGEN 2022-08-19 15:51:00 Alexys Sam [facility] (BINAX NOW) Medical Branch COVID-19 (ID NOW RAPID 2022-08-17 15:28:00 Vikas More Un [facility] TESTING) Medical Branch LAB ONLY COVID 2022-08-17 15:28:00 Vikas More [facility] INTERPRETATION Medical Branch CONSENT/REFUSAL FOR 2021-02-24 22:08:57 Doctor Unassigned, Unive [facility] DIAGNOSIS AND TREATMENT [place] [facility] ASSIGNMENT OF BENEFITS 2021-02-24 22:08:43 Doctor Unassigned, [facility] [place] [facility] XR CHEST 2 VW 2020-12-02 14:39:32 Ashley Sebastian [facility] [place] [facility] POCT GRP A STREP 2020-02-23 00:00:00 Radhika Oscar [facility] (MOLECULAR) Medical Branch Encounters Start End Encounter Admission Attending Care Care Encounter Source Date/Time Date/Time Type Type Clinicians Facility Department ID 2022-11-09 2022-11-09 Outpatient R ROBERT [facility] [id number] Univers 14:00:00 15:07:31 RUDDY greco [facility] 2022-11-09 2022-11-09 [facility] 1.2.840.114 [id number] Univers 14:00:00 15:07:31 ne Visit Ruddy CERVANTES [id number] ity of [place] [id number] Elkin palma PROFESSIO [phone] [place] maile [facility] [id number] Branch BUILDING 2022-08-19 2022-08-19 Cotton Expert Only, Ang Db Test [facility] 1.2.8 40.114 [id number] Univers 09:30:00 09:44:17 Visit Unknown, Attending HEALTH [id number] ity of Eduarda Mccollum [id number] [place] CATERINA?BLEA [phone] La maile [facility] 370 Branch MEDICAL OFFICE BUILDING 2022-08-19 2022-08-19 Outpatient R CANDY [facility] [id number] Univers 09:30:00 09:30:00 EDUARDA greco [facility] 2022-08-19 2022-08-19 Outpatient R UNKNOWN, [facility] [id number] Univers 09:15:00 09:15:00 ATTENDING ity [facility] 2022-08-17 2022-08-17 Nurse Nurse, Jeffrey Toledo [facility] 1.2.840.114 [id number] Univers 09:40:00 09:40:00 Visit Derik, Vikas CERVANTES [id number] 0 ity of [place] [id number] [place] PROFESS[place] [phone] La dical NAL [address] [place] [address] 2022-08-17 2022-08-17 Outpatient R DERIK VIKAS [facility] [id number] Univers 09:40:00 09:22:13 DERIK, OGLETICIAChristie ity [facility] 2022-08-17 2022-08-17 Telephone Derik [facility] 1.2.840.114 [id number] Univers 00:00:00 00:00:00 Vikas CERVANTES [id number] ity of [place] [id number] [place] PROFESS[place] [phone] La dical [address] 2022-08-17 2022-08-17 Telephone Derik [facility] 1.2.840.114 [id number] Univers 00:00:00 00:00:00 Vikas CERVANTES [id number] ity of [place] [id number] [place] PROFESS[place] [phone] La dical NAL [address] [place] [address] 2022-03-17 2022-03-17 Laboratory Only, Jeffrey Pob2 Test [facility] 1.2 .840.114 [id number] Univers 15:00:00 15:15:00 Only Baron Ruiz 350.1.13 .10 [place]y [place] [id number] [place] PROFESS[place] [phone] La dical NAL [address] [facility] 2022-03-17 2022-03-17 Outpatient R JOSEPH [facility] [id number] Univers 15:00:00 08:47:55 BARON ity [facility] 2022-03-16 2022-03-16 [id number] Univers 08:00:00 08:50:32 BARON greco [facility] 2022-03-16 2022-03-16 [place] Expert Only, Adc Pob2 Test [facility] 1.2 .840.114 [id number] Univers 08:00:00 08:15:00 Visit Baron Ruiz 350.1.13 .10 [facility] [id number] PROF[place] [phone] La dical [address] 2022-02-17 2022-02-17 Laboratory Only, Adc Pob2 Test [facility] 1.2 .840.114 [id number] Univers 15:15:00 15:30:00 Only Baron Ruiz 350.1.13 .10 [facility] [id number] PROFESS[place] [phone] La dical NAL [address] [place] [address] 2022-02-17 2022-02-17 Outpatient R JOSEPH [facility] [id number] Univers 15:15:00 09:18:02 BARON greco [facility] 2021-08-25 2021-08-25 Laboratory Only, Adc Pob2 Test [facility] 1.2 .840.114 [id number] Univers 14:30:00 14:45:00 Only Baron Ruiz 350.1.13 .10 [facility] [id number] PROF[place] [phone] La dical NAL [address] [place] [address] 2021-08-25 2021-08-25 Outpatient R JOSEPH [facility] [id number] Univers 14:30:00 12:06:35 BARON greco [facility] 2021-04-18 2021-04-18 [facility]ici [facility] 1.2.840.114 [id number] Univers 17:12:12 17:32:12 ne Visit Lexy Cervantes [id number] [id number] [phone] [place] 2021-04-18 2021-04-18 Outpatient R BRIDGETT [facility] [id number] Univers 14:00:00 14:00:00 LEXY [facility] 2021-04-18 2021-04-18 Outpatient R BRIDGETT [facility] [id number] Univers 14:00:00 14:00:00 LEXY greco [facility] 2021-04-15 2021-04-15 [facility] [id number] Univers 15:10:00 15:10:00 [facility] 2021-03-24 2021-03-24 Outpatient Bekah [facility] [id number] Univers 15:50:00 15:50:00 [facility] 2021-03-07 2021-03-07 Telephone [facility] [id number] Univers 00:00:00 00:00:00 Claritza [facility] [id number] i ty of [place] [id number] [place] Professio [phone] [address] Office [facility] One 2021-03-07 2021-03-07 Telephone [facility] [id number] Univers 00:00:00 00:00:00 Claritza A Health [id number] i ty of [place] [id number] [place] Profess[place] [phone] [address] Office [facility] One 2021-03-07 2021-03-07 Telephone Lab, [facility] 1.2.840.114 [id number] Univers 00:00:00 00:00:00 Fam Pob I Health [id number] ity of [place] [id number] [place] Professio [phone] [address] One 2021-03-05 2021-03-05 Outpatient R KALEIGH [facility] [id number] Univers 16:40:00 16:40:00 CLARITZA [facility] 2021-03-05 2021-03-05 Laboratory Lab, Adc Fam Pob I [facility] 1.2. 840.114 [id number] Univers 14:48:22 15:08:22 Only KaleighIsae Mitesh Brown [id number] ity of [place] [id number] [place] Professio [phone] [place] [address] [address] One 2021-02-24 2021-02-24 [facility] [id number] Univers 17:12:55 23:59:00 Encounter Torritito Cervantes [id number] [place] [phone] [facility] [address] [place] 2021-02-24 2021-02-24 Outpatient R [facility] [id number] Univers 00:00:00 00:00:00 TORRI greco o f [facility] 2021-02-24 2021-02-24 Orders Doctor HOLLY 1.2.840.114 [id number] [facility] 00:00:00 00:00:00 Only Unassigned, LEA 350.1.13.10 ity of [place] [facility] 4.2.7.2.686 [place] as [phone] [facility] [address] 2021-02-19 2021-02-19 Outpatient R [facility] [id number] Univers 16:30:00 16:30:00 TORRI greco o f [facility] 2021-02-19 2021-02-19 Telemedici [facility] 1.2.840.114 [id number] Univers 09:17:36 15:17:21 ne Visit Torri Ann-Marie 350.1.13.10 [place] [phone] [place] dictx nal [address] 2020-12-02 2020-12-02 [facility] 1.2.840.114 [id number] Univers 09:09:55 23:59:00 Encounter Ashley Cervantes [id number] [place] [phone] [facility] [address] 2020-12-02 2020-12-02 Outpatient R [facility] [id number] Univers 00:00:00 00:00:00 ASHLEY ity [facility] 2020-12-02 2020-12-02 Case [facility] 1.2.840.114 [id number] Univers 00:00:00 00:00:00 Management Ashley Cervantes [id number] ity [facility] [id number] [phone] [facility] 231 [facility] 2020-09-18 2020-09-18 Outpatient R [facility] [id number] Univers 15:00:00 15:00:00 CLARITZA bettsangel [facility] 2020-09-18 2020-09-18 Laboratory Lab, [facility] Pob I [facility] 1.2. 840.114 [id number] Univers 08:13:46 08:33:46 Only Claritza [facility] [id number] ity of [place] 4.2.7.2.686 [place] Professio [phone] [facility] [address] [place] Office [facility] One 2020-07-10 2020-07-10 [place] Expert Lab, [facility] Pob I [facility] 1.2. 840.114 [id number] Univers 11:47:22 12:07:22 Visit Claritza [facility] [id number] ity of [place] [id number] [place] Professio [phone] La dical [facility] [address] [place] Office [facility] One 2020-07-10 2020-07-10 Outpatient R [facility] [id number] Univers 11:40:00 11:40:00 CLARITZA ity [facility] 2020-02-25 2020-02-25 Telephone HOLLY Farris [id number] Univers 00:00:00 00:00:00 Claritza TATE 350.1.13.[address] [facility] 4.2.7.2.686 [place] as [phone] [address] 2020-02-25 2020-02-25 Telephone HOLLY Farris 1.2.301.500 [id number] 00:00:00 00:00:00 Claritzaheidi TATE 350.1.13.10 [facility] 4.2.7.2.686 [phone] [facility] 2020-02-23 2020-02-23 Urgent Pob1, Acute Care Clinic [facility] 1. 2.840.114 [id number] [facility] 09:48:47 10:24:57 Care Sarah, [facility] 350.1.13.10 ity of [place] 4.2.7.2.686 [place] Professio [phone] [address] Office Building [facility] 2020-02-23 2020-02-23 Urgent Pob1, Acute [facility] 1.2.840.114 [id number] 09:48:47 10:24:57 Care [facility] [id number] [place] 4.2.7.2.686 Professio [phone] [place] [address] Office Building [facility] 2020-02-23 2020-02-23 Outpatient R [facility] [id number] Univers 10:20:00 10:20:00 PARISA greco [facility] 2020-02-01 2020-02-02 Urgent Provider, [facility] 1.2.840.114 [id number] Univers 15:19:08 09:58:50 Care Claritza [facility] [id number] ity of [place] [id number] [place] Professio [phone] [address] Office Building [facility] 2020-02-01 2020-02-02 Urgent Provider, [facility] 1.2.031.219 [id number] 15:19:08 09:58:50 Care [facility] [id number] Care [place] [id number] Professio [phone] [place] [address] Office Building [facility] 2020-02-01 2020-02-01 Outpatient R [facility] [id number] Univers 15:40:00 15:40:00 [facility] 2019-11-22 2019-11-22 Outpatient Raju_P MMG MMG [id number] [place] 04:53:00 04:53:00 0325 [facility] Results Test Description Test Time Test Comments Results Result Comments Source POCT SARS-COV-2 ANTIGEN (BINAX NOW) 2022-08-19 15:51:00 Test Item Value Reference Range Interpretation Comme nts POCT SARS-COV-2 ANTIGEN (test code = 55978-4) Not Detected Not Dete cted On board controls acceptable with C Line (test code = Yes 3574) Lab Interpretation (test code = 94418-2) Normal [facility] 2 [id number] 16:26:10No acute cardiopulmonary disease. CHEST 2 VIEWS: [...] the right seventh rib laterally.IMPRESSIONNo acute cardiopulmonary disease.[facility] STREP (MOLECULAR)2020-02-23 15:36:00 Test Item Value Reference Range Interpretation Comments POCT GP A STREP (test code = neg Negative - Negative 20662-6) [facility]
--- NOTE | 2023-02-02 23:11 | ER ---
Nurse's Notes [facility] Name: Melissa Jacobson Age: 27 yrs Sex: Female : 1995 Arrival Date: 02/02/2023 Time: 22:23 Bed IW8 Private MD: Diagnosis: Presentation: 02/02 22:32 Chief complaint: Patient states: Dizziness x 4 days. Seen here last night, CT done, kl diagnosed with Vertigo. Coronavirus screen: Vaccine status: Patient reports receiving the 2nd dose of the covid vaccine. Ebola Screen: No symptoms or risks identified at this time. 22:32 Method Of Arrival: Ambulatory 22:32 Acuity: FLAVIO 5 Historical: - Allergies: 22:34 No Known Allergies; - Home Meds: 22:34 None [Active]; - PMHx: 22:34 None; - PSHx: 22:34 None; Vital Signs: 22:32 BP 125 / 84; Pulse 81; Resp 18; Temp 97.3; Pulse Ox 99% ; Weight 111.13 kg; Height 5 kl ft. 4 in. ; Pain 0/10; 22:32 Body Mass Index 42.05 (111.13 kg, 162.56 cm) 22:32 Pain Scale: Adult ED Course: 22:23 Patient arrived in ED. jj6 22:33 Triage completed. 23:06 Steven Gross MD is Attending Physician. sp4 Administered Medications: No medications were administered Outcome: 23:19 Patient left the ED. Signatures: Lauren Vaughan RN RN Denisse Reis jj6 Steven Gross MD MD sp4
--- NOTE | 2023-02-02 23:11 | EDPHYS ---
Physician Documentation [facility] Name: Melissa Jacobson Age: 27 yrs Sex: Female : 1995 Arrival Date: 02/02/2023 Time: 22:23 Bed IW8 Private MD: ED Physician Stveen Gross HPI: 02/02 23:06 This 27 yrs old Female presents to ER via Ambulatory with complaints of sp4 Dizziness. 23:06 27-year-old female presents with dizziness. sp4 23:10 27-year-old female checked in for dizziness but was found to have eloped from the sp4 waiting room prior to being evaluated by provider. Historical: - Allergies: 22:34 No Known Allergies; kl - Home Meds: 22:34 None [Active]; kl - PMHx: 22:34 None; kl - PSHx: 22:34 None; kl Vital Signs: 22:32 BP 125 / 84; Pulse 81; Resp 18; Temp 97.3; Pulse Ox 99% ; Weight 111.13 kg; Height 5 kl ft. 4 in. ; Pain 0/10; 22:32 Body Mass Index 42.05 (111.13 kg, 162.56 cm) kl 22:32 Pain Scale: Adult kl MDM: 23:11 Patient medically screened. sp4 Administered Medications: No medications were administered Disposition: 23:10 Chart complete. sp4 Disposition Summary: 02/02/23 23:11 Eloped Disposition: before being seen by provider sp4 Reason: (see nurse's notes) sp4 Condition: Stable sp4 Followup: sp4 - With: Private Physician - When: As needed - Reason: Signatures: Lauren Vaughan, RN RN Steven Ash MD MD sp4
[2023-02-03 00:56] VITALS: BP 125/84; TEMP 97.3; O2SAT 99
== END 2023-02-02 23:19 | disposition left against medical advice (07) ==
LOC: ER 22:23
DX: Z53.21 Procedure and treatment not carried out due to patient leaving prior to being seen by health care provider (principal)
CPT/HCPCS: 99281

== ENCOUNTER 2023-02-07 21:13 | Emergency (ER) | payer BC ==
--- OUTSIDE RECORDS SUMMARY | 2023-02-07 21:17 | XMS REPORT | Continuity of Care Document ---
:1995 Author Organization [facility] t Address [address] [place] [address] [address] [place] [address] Care Team Providers Name Role Phone Kristy Moreno Primary Care Physician LORETO GUTIÉRREZ Attending Clinician Unavailable Loreto Braden Attending Clinician RUDDY BARONE Attending Clinician Unavailable Barone [facility] [employer] Dalton Attending Clinician Only, Ang Db Test Attending Clinician Unavailable Unknown, Attending Attending Clinician Unavailable EbrahiEduarda Cuevas Attending Clinician EBEDUARDA AMBROCIO Attending Clinician Unavailable UNKNOWN, ATTENDING Attending Clinician Unavailable Nurse, [facility]am Attending Clinician Unavailable Vikas More NP [...] TORRI BYNUM Attending Clinician Unavailable Doctor Unassigned, [place] Attending Clinician Unavailable Ashley Sebastian MD Attending Clinician [phone] ASHLEY SEBASTIAN Attending Clinician Unavailable Pob[facility], [facility] Attending Clinician Unavailable Sarah MCCARTHY, Parisa Attending Clinician PARISA SMITH Attending Clinician Unavailable Provider, [facility] Attending Clinician Unavailable Raju_P Attending Clinician Unavailable Raju_P Admitting Clinician Unavailable Payers Payer Name Policy Type Policy Number Effective Date Expiration Date S ource [employer] [place] [id number] 2018 EMPLOYEE PLAN 00:00:00 [employer] [place] [id number] 2018 00:00:00 Problems Condition Condition Condition Status Onset Resolution Last Treating Co mments Source Name Details Category Date Date Treatment Clinician Date Non-recurr Non-recurr Disease Active U nivers ent acute ent acute 8-20 ity of serous serous 00:00: [place] otitis otitis 00 Medical media of media of Branch right ear right ear Acute ear Acute ear Disease Active Uni vers pain, pain, 8-20 ity of right right 00:00: [address] Acute ear Acute ear Disease Active Uni vers pain, pain, 8-20 ity of right right 00:00: [address] No known No known Disease Unive rs active active ity of problems problems [facility] [place] Allergies, Adverse Reactions, Alerts Allergy Allergy Status Severity Reaction(s) Onset Inactive Treating Comm ents Source Name Type Date Date Clinician NO KNOWN Drug Active Univers ALLERGIE Class ity of S [facility] [place] Social History Social Habit Start Date Stop Date Quantity Comments Source Tobacco use and 2022-11-09 2022-11-09 Smokeless tobacco Un iversity of exposure 00:00:00 00:00:00 non-user [facility] [place] Exposure to 2022-08-09 2022-08-19 Not sure [facility] [place]-CoV-2 00:00:00 09:37:00 [facility] (event) [place] Sex Assigned At [birth year] Universit y of 00:00:00 00:00:[address] [facility] [place] Smoking Status Start Date Stop Date Source Never smoked tobacco [facility] Medications Ordered Filled Start Stop Current Ordering Indication Dosage Frequency Signature Comments Components Source Medication Medication Date Date Medication? Clinician (SIG) Name Name ofloxacin Yes [id number] 4[drp] Place 4 Univers 0.3 % 3-13 Drops in ity of ophthalmic 00:00: [place] ear 4 [place] solution 00 (four) Medical times Branch daily. ofloxacin Yes [id number] 4[drp] Place 4 Univers 0.3 % 3-13 Drops in ity of ophthalmic 00:00: [place] ear 4 [place] solution 00 (four) Medical times Branch daily. benzonatate 2021-08 Yes [id number] 100mg Take 1 Univers (TESSALON 2-19 capsule by ity of PERLES) 100 00:00: mouth [place] mg capsule 00 every 8 Medica l (eight) Branch hours as needed for Cough. bromphenira 2021-08 Yes [id number] 5mL Take 5 mL Univers mine-pseudo 2-19 by mouth 4 it y of ephedrine-D 00:00: ([place] (BROMFED 00 times Medical DM) 2-30-10 daily as Bran ch mg/5 mL needed for syrup Congestion /Allergies , Cold symptoms or Cough. benzonatate 2021-08 Yes [id number] 100mg Take 1 Univers (TESSALON 2-19 capsule by ity of PERLES) 100 00:00: mouth [place] mg capsule 00 every 8 Medica l (eight) Branch hours as needed for Cough. bromphenira 2021-08 Yes [id number] 5mL Take 5 mL Univers mine-pseudo 2-19 by mouth 4 it y of ephedrine-D 00:00: (four[place] (BROMFED 00 times Medical DM) 2-30-10 daily as Bran ch mg/5 mL needed for syrup Congestion /Allergies , Cold symptoms or Cough. molnupiravi 2021-08 Yes [id number] 800mg Take 4 Univers r 200 mg 2-19 capsules ity of capsule 00:00: by mouth [place] 00 every 12 Medical (twelve) Branch hours. benzonatate 2021-08 Yes [id number] 100mg Take 1 Univers (TESSALON 2-19 capsule by ity of PERLES) 100 00:00: mouth [place] mg capsule 00 every 8 Medica l (eight) Branch hours as needed for Cough. bromphenira 2021-08 Yes [id number] 5mL Take 5 mL Univers mine-pseudo 2-19 by mouth 4 it y of ephedrine-D 00:00: (four[place] (BROMFED 00 times Medical DM) 2-30-10 daily as Bran ch mg/5 mL needed for syrup Congestion /Allergies , Cold symptoms or Cough. molnupiravi 2021-08 Yes [id number] 800mg Take 4 Univers r 200 mg 2-19 capsules ity of capsule 00:00: by mouth [place] 00 every 12 Medical (twelve) Branch hours. benzonatate 2021-08- No [id number] 100mg Take 1 Univers (TESSALON -15 11- capsule by ity of TODD) 100 00:00: 00:[place] capsule 00 :00 every 8 Medica l (eight) Branch hours as needed for Cough. bromphenira 2021-08- No [id number] 5mL Take 5 mL Univers mine-pseudo -15 11- by mouth 4 i ty of ephedrine-D 00:00: 00:00 (four) [place] as M (BROMFED 00 :00 times Medical DM) 2-30-10 daily as Bran ch mg/5 mL needed for syrup Congestion /Allergies , Cold symptoms or Cough. molnupiravi 2021-08- No [id number] 800mg Take 4 Univers r 200 mg 2-19 -13 capsules ity of capsule 00:00: 00:00 by mouth [place] 00 :00 every 12 Medical (twelve) Branch hours. amoxicillin 2021-08- No [id number] 1{tbl} Take 1 Univers -clavulanat 2-19 12-27 tablet by it y of e 00:00: 05:59 mouth in [place] (AUGMENTIN) 00 :00 the Medical 875-125 mg morning Branch per tablet and 1 tablet in the evening. Do all this for 7 days. amoxicillin 2021-08- No [id number] 1{tbl} Take 1 Univers -clavulanat 2-19 12-27 tablet by it y of e 00:00: 05:59 mouth in [place] (AUGMENTIN) 00 :00 the Medical 875-125 mg morning Branch per tablet and 1 tablet in the evening. Do all this for 7 days. amoxicillin 2021-08 202- No [id number] 1{tbl} Take 1 Univers -clavulanat 2-19 12-27 tablet by it y of e 00:00: 05:59 mouth in [place] (AUGMENTIN) 00 :00 the Medical 875-125 mg morning Branch per tablet and 1 tablet in the evening. Do all this for 7 days. amoxicillin 2020-0 Yes [id number] 1{tbl} Take 1 Univers -clavulanat 8-20 tablet by ity of e 00:00: mouth 2 [place] (AUGMENTIN) 00 (two) Medical 875-125 mg times Branch per tablet daily. ibuprofen 2020-0 Yes [id number] 600mg Take 1 Univers 600 mg 8-20 tablet by ity of tablet 00:00: mouth [place] 00 every 6 Medical (six) Branch hours as needed for Pain (scale 4-6). amoxicillin 2020-0 Yes [id number] 1{tbl} Take 1 Univers -clavulanat 8-20 tablet by ity of e 00:00: mouth 2 [place] (AUGMENTIN) 00 (two) Medical 875-125 mg times Branch per tablet daily. ibuprofen 2020-0 Yes [id number] 600mg Take 1 Univers 600 mg 8-20 tablet by ity of tablet 00:00: mouth [place] 00 every 6 Medical (six) Branch hours as needed for Pain (scale 4-6). amoxicillin 2020-0 Yes [id number] 1{tbl} Take 1 Univers -clavulanat 8-20 tablet by ity of e 00:00: mouth 2 [place] (AUGMENTIN) 00 (two) Medical 875-125 mg times Branch per tablet daily. ibuprofen 2020-0 Yes [id number] 600mg Take 1 Univers 600 mg 8-20 tablet by ity of tablet 00:00: mouth [place] 00 every 6 Medical (six) Branch hours as needed for Pain (scale 4-6). amoxicillin 2020-0 Yes [id number] 1{tbl} Take 1 Univers -clavulanat 8-20 tablet by ity of e 00:00: mouth 2 [place] (AUGMENTIN) 00 (two) Medical 875-125 mg times Branch per tablet daily. ibuprofen 2020-0 Yes [id number] 600mg Take 1 Univers 600 mg 8-20 tablet by ity of tablet 00:00: mouth [place] 00 every 6 Medical (six) Branch hours as needed for Pain (scale 4-6). amoxicillin 2020-0 Yes [id number] 1{tbl} Take 1 Univers -clavulanat 8-20 tablet by ity of e 00:00: mouth 2 [place] (AUGMENTIN) 00 (two) Medical 875-125 mg times Branch per tablet daily. ibuprofen 2020-0 Yes [id number] 600mg Take 1 Univers 600 mg 8-20 tablet by ity of tablet 00:00: mouth [place] 00 every 6 Medical (six) Branch hours as needed for Pain (scale 4-6). amoxicillin 2020-0 Yes [id number] 1{tbl} Take 1 Univers -clavulanat 8-20 tablet by ity of e 00:00: mouth 2 [place] (AUGMENTIN) 00 (two) Medical 875-125 mg times Branch per tablet daily. ibuprofen 2020-0 Yes [id number] 600mg Take 1 Univers 600 mg 8-20 tablet by ity of tablet 00:00: mouth [place] 00 every 6 Medical (six) Branch hours as needed for Pain (scale 4-6). amoxicillin 2020-0 Yes [id number] 1{tbl} Take 1 Univers -clavulanat 8-20 tablet by ity of e 00:00: mouth 2 [place] (AUGMENTIN) 00 (two) Medical 875-125 mg times Branch per tablet daily. ibuprofen 2020-0 Yes [id number] 600mg Take 1 Univers 600 mg 8-20 tablet by ity of tablet 00:00: mouth [place] 00 every 6 Medical (six) Branch hours as needed for Pain (scale 4-6). amoxicillin 2020-0 Yes [id number] 1{tbl} Take 1 Univers -clavulanat 8-20 tablet by ity of e 00:00: mouth 2 [place] (AUGMENTIN) 00 (two) Medical 875-125 mg times Branch per tablet daily. ibuprofen 2020-0 Yes [id number] 600mg Take 1 Univers 600 mg 8-20 tablet by ity of tablet 00:00: mouth [place] 00 every 6 Medical (six) Branch hours as needed for Pain (scale 4-6). amoxicillin 2020-0 Yes [id number] 1{tbl} Take 1 Univers -clavulanat 8-20 tablet by ity of e 00:00: mouth 2 [place] (AUGMENTIN) 00 (two) Medical 875-125 mg times Branch per tablet daily. ibuprofen 2020-0 Yes [id number] 600mg Take 1 Univers 600 mg 8-20 tablet by ity of tablet 00:00: mouth [place] 00 every 6 Medical (six) Branch hours as needed for Pain (scale 4-6). amoxicillin Yes [id number] 1{tbl} Take 1 Univers -clavulanat 8-20 tablet by ity of e 00:00: mouth 2 [place] (AUGMENTIN) 00 (two) Medical 875-125 mg times Branch per tablet daily. ibuprofen 2020- Yes [id number] 600mg Take 1 Univers 600 mg 8-20 tablet by ity of tablet 00:00: mouth [place] 00 every 6 Medical (six) Branch hours as needed for Pain (scale 4-6). amoxicillin Yes [id number] 1{tbl} Take 1 Univers -clavulanat 8-20 tablet by ity of e 00:00: mouth 2 [place] (AUGMENTIN) 00 (two) Medical 875-125 mg times Branch per tablet daily. amoxicillin Yes [id number] 1{tbl} Take 1 Univers -clavulanat 8-20 tablet by ity of e 00:00: mouth 2 [place] (AUGMENTIN) 00 (two) Medical 875-125 mg times Branch per tablet daily. ibuprofen 2022- No [id number] 600mg Take 1 Univers 600 mg 8-20 03-13 tablet by ity of tablet 00:00: 00:00 mouth [place] 00 :00 every 6 Medical (six) Branch hours as needed for Pain (scale 4-6). ofloxacin 2020- No [id number] 5[drp] Place 5 Univers 0.3 % otic 6 06-16 Drops in ity of drops 00:00: 04:59 left ear 2 [place] 00 :00 (two) Medical times Branch daily for 10 days. ibuprofen 2019- 2020- No [id number] 600mg Take 1 Univers 600 mg 01-31 06-12 tablet by ity of tablet 00:00: 04:59 mouth 3 [place] 00 :00 (three) Medical times Branch daily with meals for 7 days. ciprofloxac 2019- 2020- No [id number] 4[drp] Place 4 Univers in-dexameth 6-04 06-12 Drops in ity of asone 00:00: 04:59 left ear 2 [place] (CIPRODEX) 00 :00 (two) Medical 0.3-0.1 % times Branch otic drops daily for 7 days. ibuprofen 2019- 2020- No [id number] 600mg Take 1 Univers 600 mg 01-31-12 tablet by ity of tablet 00:00: 04:59 mouth 3 [place] 00 :00 (three) Medical times Branch daily with meals for 7 days. ciprofloxac 2019- No [id number] 4[drp] Place 4 Univers in-dexameth 6-04 06-05 Drops in ity of asone 00:00: 00:00 left ear 2 [place] (CIPRODEX) 00 :00 (two) Medical 0.3-0.1 % times Branch otic drops daily for 7 days. ciprofloxac 2019-2019- No [id number] 4[drp] Place 4 Univers in-dexameth 6-04 06-04 Drops in ity of asone 00:00: 00:00 left ear 2 [place] (CIPRODEX) 00 :00 (two) Medical 0.3-0.1 % times Branch otic drops daily for 7 days. ciprofloxac 2019- No [id number] 4[drp] Place 4 Univers in-dexameth 6-04 06-04 Drops in ity of asone 00:00: 00:00 left ear 2 [place] (CIPRODEX) 00 :00 (two) Medical 0.3-0.1 % times Branch otic drops daily for 7 days. No known No Univers medications ity [facility] No known No Univers medications ity [facility] No known No Univers medications ity [facility] No known No Univers medications ity [facility] No known No Univers medications ity [facility] No known No Univers medications ity [facility] No known No Univers medications ity [facility] No known No Univers medications ity [facility] No known No Univers medications ity [facility] No known No Univers medications ity [facility] No known No Univers [facility] No known No Univers medications [facility] No known No Univers medications ity [facility] No known No Univers medications [facility] Immunizations Ordered Filled Immunization Date Status Comments [facility] Immunization Name Name SARS-COV-2 COVID-19 2021-04-15 Completed Unive rsity of PFIZER VACCINE 00:00:00 [facility] SARS-COV-2 COVID-19 2021-04-15 Completed Unive rsity of PFIZER VACCINE 00:00:00 [facility] SARS-COV-2 COVID-19 2021-04-15 Completed Unive rsity of PFIZER VACCINE 00:00:00 [facility] SARS-COV-2 COVID-19 2021-04-15 Completed Unive rsity of PFIZER VACCINE 00:00:00 [facility] SARS-COV-2 COVID-19 2021-04-15 Completed Unive rsity of PFIZER VACCINE 00:00:00 [facility] SARS-COV-2 COVID-19 2021-04-15 Completed Unive rsity of PFIZER VACCINE 00:00:00 [facility] SARS-COV-2 COVID-19 2021-04-15 Completed Unive rsity of PFIZER VACCINE 00:00:00 [facility] SARS-COV-2 COVID-19 2021-04-15 Completed Unive rsity of PFIZER VACCINE 00:00:00 [facility] SARS-COV-2 COVID-19 2021-04-15 Completed Unive rsity of PFIZER VACCINE 00:00:00 [facility] SARS-COV-2 COVID-19 2021-04-15 Completed Unive rsity of PFIZER VACCINE 00:00:00 [facility] SARS-COV-2 COVID-19 2021-04-15 Completed Unive rsity of PFIZER VACCINE 00:00:00 [facility] SARS-COV-2 COVID-19 2021-04-15 Completed Unive rsity of PFIZER VACCINE 00:00:00 [facility] SARS-COV-2 COVID-19 2021-03-24 Completed Unive rsity of PFIZER VACCINE 00:00:00 [facility] SARS-COV-2 COVID-19 2021-03-24 Completed Unive rsity of PFIZER VACCINE 00:00:00 [facility] SARS-COV-2 COVID-19 2021-03-24 Completed Unive rsity of PFIZER VACCINE 00:00:00 [facility] SARS-COV-2 COVID-19 2021-03-24 Completed Unive rsity of PFIZER VACCINE 00:00:00 [facility] SARS-COV-2 COVID-19 2021-03-24 Completed Unive rsity of PFIZER VACCINE 00:00:00 [facility] SARS-COV-2 COVID-19 2021-03-24 Completed Unive rsity of PFIZER VACCINE 00:00:00 [facility] SARS-COV-2 COVID-19 2021-03-24 Completed Unive rsity of PFIZER VACCINE 00:00:00 [facility] SARS-COV-2 COVID-19 2021-03-24 Completed Unive rsity of PFIZER VACCINE 00:00:00 [facility] SARS-COV-2 COVID-19 2021-03-24 Completed Unive rsity of PFIZER VACCINE 00:00:00 [facility] SARS-COV-2 COVID-19 2021-03-24 Completed Unive rsity of PFIZER VACCINE 00:00:00 [facility] SARS-COV-2 COVID-19 2021-03-24 Completed Unive rsity of PFIZER VACCINE 00:00:00 [facility] SARS-COV-2 COVID-19 2021-03-24 Completed Unive rsity of PFIZER VACCINE 00:00:00 [facility] Vital Signs Vital Name Observation Time Observation Value Comments Source Systolic blood 2023-02-03 04:12:00 165 mm[Hg] Univer sity of pressure [facility] [place] Diastolic blood 2023-02-03 04:12:00 106 mm[Hg] Unive rsity of pressure [facility] [place] Heart rate 2023-02-03 04:12:00 93 /min [facility] Body temperature 2023-02-03 04:12:00 37.39 [facility] Res[facility] 2023-02-03 04:12:00 20 /min [facility] Body height 2023-02-03 04:12:00 162.6 cm [facility] Body weight 2023-02-03 04:12:00 157.988 kg [facility] BMI 2023-02-03 04:12:00 59.79 kg/m2 [facility] Oxygen saturation in 2023-02-03 04:12:00 100 /min University of Arterial blood by [place] Medi surinder Pulse oximetry Branch Systolic blood 2020-02-23 14:58:00 146 mm[Hg] Univer sity of pressure [place] [facility] Diastolic blood 2020-02-23 14:58:00 96 mm[Hg] Unive rsity of pressure [place] [facility] Heart rate 2020-02-23 14:58:00 114 /min Universi ty of [place] [facility] Body temperature 2020-02-23 14:56:00 36.94 Tessa Univ ersity of [place] [facility] Respiratory rate 2020-02-23 14:56:00 18 /min Univ ersity of [place] [facility] Body height 2020-02-23 14:56:00 162.6 cm Universi ty of [place] [facility] Body weight 2020-02-23 14:56:00 108.863 kg Universi ty of [place] [facility] BMI 2020-02-23 14:56:00 41.20 kg/m2 Universi ty of [place] [facility] Oxygen saturation in 2020-02-23 14:56:00 99 /min University of Arterial blood by [facility] surinder Pulse oximetry Branch Systolic blood 2020-02-23 14:58:00 146 mm[Hg] Univer sity of pressure [place] [facility] Diastolic blood 2020-02-23 14:58:00 96 mm[Hg] Unive rsity of pressure [place] [facility] Heart rate 2020-02-23 14:58:00 114 /min Universi ty of [place] [facility] Body temperature 2020-02-23 14:56:00 36.94 Tessa Univ ersity of [place] [facility] Respiratory rate 2020-02-23 14:56:00 18 /min Univ ersity of [place] [facility] Body height 2020-02-23 14:56:00 162.6 cm Universi ty of [place] [facility] Body weight 2020-02-23 14:56:00 108.863 kg Universi ty of [place] [facility] BMI 2020-02-23 14:56:00 41.20 kg/m2 Universi ty of [place] [facility] Oxygen saturation in 2020-02-23 14:56:00 99 /min University of Arterial blood by [place] Medi surinder Pulse oximetry Branch Systolic blood 2020-02-01 21:03:00 139 mm[Hg] Univer sity of pressure [place] [facility] Diastolic blood 2020-02-01 21:03:00 89 mm[Hg] Unive rsity of pressure [place] [facility] Heart rate 2020-02-01 21:03:00 92 /min Universi ty of [place] [facility] Body temperature 2020-02-01 21:03:00 37.06 Tessa Univ ersity of [place] [facility] Respiratory rate 2020-02-01 21:03:00 17 /min Univ ersity of [place] [facility] [place] Body height 2020-02-01 21:03:00 162.6 cm Universi ty of [place] [facility] Body weight 2020-02-01 21:03:00 106.595 kg Universi ty of [place] [facility] BMI 2020-02-01 21:03:00 40.34 kg/m2 Universi ty of [place] [facility] Oxygen saturation in 2020-02-01 21:03:00 98 /min University of Arterial blood by [facility] Pulse oximetry Branch Systolic blood 2020-02-01 21:03:00 139 mm[Hg] Univer sity of pressure [place] [facility] Diastolic blood 2020-02-01 21:03:00 89 mm[Hg] Unive rsity of pressure [place] [facility] [place] Heart rate 2020-02-01 21:03:00 92 /min Universi ty of [place] [facility] Body temperature 2020-02-01 21:03:00 37.06 Tessa [facility] ersity of [place] [facility] Respiratory rate 2020-02-01 21:03:00 17 /min Univ ersity of [place] [facility] [place] Body height 2020-02-01 21:03:00 162.6 cm Universi ty of [place] [facility] Body weight 2020-02-01 21:03:00 106.595 kg Universi ty of [place] [facility] BMI 2020-02-01 21:03:00 40.34 kg/m2 Universi ty of [place] [facility] Oxygen saturation in 2020-02-01 21:03:00 98 /min University of Arterial blood by [facility] Pulse oximetry Branch Procedures Procedure Date / Time Performing Clinician Source Performed NOTICE OF PRIVACY 2023-02-03 04:06:39 Doctor Unassigned, [facility] PRACTICES [place] [facility] CONSENT/REFUSAL FOR 2023-02-03 04:06:13 Doctor Unassigned, [facility] DIAGNOSIS AND TREATMENT [place] [facility] POCT SARS-COV-2 ANTIGEN 2022-08-19 15:51:00 Alexys Sam [facility] (BINAX NOW) Medical Branch COVID-19 (ID NOW RAPID 2022-08-17 15:28:00 Vikas More Un [facility] TESTING) Medical Branch LAB ONLY COVID 2022-08-17 15:28:00 Vikas More [facility] INTERPRETATION Medical Branch CONSENT/REFUSAL FOR 2021-02-24 22:08:57 Doctor Unassigned, [facility] DIAGNOSIS AND TREATMENT [place] [facility] ASSIGNMENT OF BENEFITS 2021-02-24 22:08:43 [facility] [place] [facility] XR CHEST 2 VW 2020-12-02 14:39:32 Ashley Sebastian [facility] A [facility] POCT GRP A STREP 2020-02-23 00:00:00 Radhika Oscar [facility] (MOLECULAR) Medical Branch Encounters Start End Encounter Admission Attending Care Care Encounter Source Date/Time Date/Time Type Type Clinicians Facility Department ID 2023-02-02 2023-02-03 Emergency X [facility] ERT [id number] Univers 23:16:00 01:40:00 [facility] 2023-02-02 2023-02-03 Emergency [facility] [id number] [facility] 23:16:00 01:40:00 Loreto CERVANTES [id number] ity [facility] [id number] [facility] [id number] [facility] 084 Branch 2022-11-09 2022-11-09 [id number] Univers 14:00:00 15:07:31 [facility] 2022-11-09 2022-11-09 [facility] [id number] Univers 14:00:00 15:07:31 ne Visit Ruddy CERVANT[id number] [facility] [id number] [facility] [id number] Ma dical NAL 044 Branch BUILDING 2022-08-19 2022-08-19 Assembly Line Leader Only, Ang Db Test [facility] 1.2.8 40.114 [id number] Univers 09:30:00 09:44:17 Visit Unknown, Attending HEALTH [id number] ity of FacundoEduarda rasheed HELEN [id number] [place] CATERINA?BLEA [id number] [address] MEDICAL OFFICE BUILDING 2022-08-19 2022-08-19 Outpatient R CANDY [facility] [id number] Univers 09:30:00 09:30:00 EDUARDA ity [facility] 2022-08-19 2022-08-19 Outpatient R UNKNOWN, [facility] [id number] Univers 09:15:00 09:15:00 ATTENDING ity [facility] 2022-08-17 2022-08-17 Nurse Nurse, [facility] [id number] Univers 09:40:00 09:40:00 Visit Vikas More 350.1.13.1 0 ity [place] [id number] [place] [id number] Ma [address] 2022-08-17 2022-08-17 Outpatient R VIKAS MORE [facility] [id number] Univers 09:40:00 09:22:13 VIKAS MORE ity [facility] 2022-08-17 2022-08-17 Telephone Freda [facility] [id number] Univers 00:00:00 00:00:00 Vikas CERVANTES [id number] ity of [place] [id number] [place] [id number] Ma [address] 2022-08-17 2022-08-17 Telephone Freda [facility] [id number] Univers 00:00:00 00:00:00 Vikas CERVANTES [id number] ity of [place] [id number] [place] [phone] Ma dical NAL 044 [facility] 2022-03-17 2022-03-17 Laboratory Only, Adc Pob2 Test [place] 1.2 .840.114 [id number] Univers 15:00:00 15:15:00 Only Baron [place] 350.1.13 .10 ity of [facility] [id number] [id number] Ma dical [address] 2022-03-17 2022-03-17 Outpatient R JOSEPH [facility] [id number] Univers 15:00:00 08:47:55 [facility] 2022-03-16 2022-03-16 Outpatient R JOSEPH [facility] [id number] Univers 08:00:00 08:50:32 [facility] 2022-03-16 2022-03-16 Assembly Line Leader Only, Adc Pob2 Test [facility] 1.2 .840.114 [id number] Univers 08:00:00 08:15:00 Visit Baron Ruiz 350.1.13 .10 ity of [facility] [place] [phone] [place] dic[address] 2022-02-17 2022-02-17 Laboratory Only, Adc Pob2 Test [facility] 1.2 .840.114 [id number] Univers 15:15:00 15:30:00 Only Baron Ruiz 350.1.13 .10 ity of [place] [phone] Ma dical NAL [address] [place] [address] 2022-02-17 2022-02-17 Outpatient R [facility]PH [facility] [id number] Univers 15:15:00 09:18:02 BARON angel [facility] 2021-08-25 2021-08-25 Laboratory Only, Adc Pob2 Test [facility] 1.2 .840.114 [id number] Univers 14:30:00 14:45:00 Only Baron Ruiz 350.1.13 .10 ity of [place] [phone] Ma dical NAL 225 [facility] 2021-08-25 2021-08-25 Outpatient Bekah RUIZ [facility] [id number] Univers 14:30:00 12:06:35 [facility] 2021-04-18 2021-04-18 [facility]ici [facility] 1.2.840.114 [id number] Univers 17:12:12 17:32:12 ne Visit Lexy Cervantes 350.1.13.10 ity [facility] [place] [phone] [facility] 044 [facility] 2021-04-18 2021-04-18 Outpatient R BRIDGETT [facility] [id number] Univers 14:00:00 14:00:00 [facility] 2021-04-18 2021-04-18 Outpatient R BRIDGETT [facility] [id number] Univers 14:00:00 14:00:00 [facility] 2021-04-15 2021-04-15 [facility] [id number] Univers 15:10:00 15:10:00 [facility] 2021-03-24 2021-03-24 [facility] [id number] Univers 15:50:00 15:50:00 [facility] 2021-03-07 2021-03-07 [facility]phone [facility] [id number] Univers 00:00:00 00:00:00 Claritza [facility] 350.1.13.10 i ty of [place] 4.2.7.2.686 [place] as Professio [phone] Ma dicri nal 044 [facility] 2021-03-07 2021-03-07 [facility]phone [facility] [id number] Univers 00:00:00 00:00:00 Claritza [facility] 350.1.13.10 i ty of [place] 4.2.7.2.686 [place] Professio [phone] Ma dic[address] One 2021-03-07 2021-03-07 Telephone Lab, [facility] 1.2.840.114 [id number] Univers 00:00:00 00:00:00 Fam Pob I Health 350.1.13.10 ity of [place] 4.2.7.2.686 [place] Profess[place] [phone] [address] One 2021-03-05 2021-03-05 Outpatient R KALEIGH [facility] [id number] Univers 16:40:00 16:40:00 CLARITZA ity of [facility] [place] 2021-03-05 2021-03-05 Laboratory Lab, [facility] Fam Pob I [facility] 1.2. 840.114 [id number] Univers 14:48:22 15:08:22 Only Claritza [facility] 350.1.13.10 ity of [place] 4.2.7.2.686 [place] Professio [phone] [address] One 2021-02-24 2021-02-24 [facility] 1.2.352.999 [id number] Univers 17:12:55 23:59:00 Encounter Torri [place] 350.1.13.10 ity of [place] [phone] [facility] [address] [place] 2021-02-24 2021-02-24 [facility] [id number] Univers 00:00:00 00:00:00 TORRI greco o f [facility] [place] [place] 2021-02-24 2021-02-24 Orders Doctor BARRERA 1.2.840.114 [id number] Univers 00:00:00 00:00:00 Only Unassigned, LEA 350.1.13.10 ity of [place] [facility] 4.2.7.2.686 [place] as [phone] [facility] [address] [place] 2021-02-19 2021-02-19 [facility] [id number] Univers 16:30:00 16:30:00 TORRI greco o f [facility] [place] [place] 2021-02-19 2021-02-19 Telemedici [facility] 1.2.840.114 [id number] Univers 09:17:36 15:17:21 ne Visit Torri Cervantes 350.1.13.10 ity of [place] [phone] [facility] 044 [facility] 2020-12-02 2020-12-02 [facility] 1.2.840.114 [id number] Univers 09:09:55 23:59:00 Encounter Ashley Sagastume [place] 350.1.13.10 ity of [place] [phone] [facility] [address] [place] 2020-12-02 2020-12-02 [facility] [id number] Univers 00:00:00 00:00:00 ASHLEY ity of [facility] [place] 2020-12-02 2020-12-02 [facility] 1.2.840.114 [id number] Univers 00:00:00 00:00:00 Management Ashley Cervantes 350.1.13.10 ity of [place] [phone] [facility] 231 [facility] 2020-09-18 2020-09-18 [facility] [id number] Univers 15:00:00 15:00:00 CLARITZA ity of [facility] [place] 2020-09-18 2020-09-18 Laboratory Lab, [facility] .2. 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 840.114 [id number] Univers 11:47:22 12:07:22 Visit Kaleigh, Claritza [facility] Health 350.1.13.10 ity of [place] 4.2.7.2.686 [place] Profess[place] [phone] [address] Office Building One 2020-07-10 2020-07-10 Outpatient R KALEIGH [facility] [id number] Univers 11:40:00 11:40:00 CLARITZA greco [facility] 2020-02-25 2020-02-25 Telephone HOLLY Farris 1.2.900.[id number] [facility] 00:00:00 00:00:00 Claritza TATE 350.1.13.10 i ty of [facility] 4.2.7.2.686 [place] as [phone] [address] 2020-02-25 2020-02-25 Telephone HOLLY Farris [id number] [id number] 00:00:00 00:00:00 Claritza OTEROY 350.1.13.10 [facility] 4.2.7.2.686 [phone] [facility] 2020-02-23 2020-02-23 Urgent Pob1, Acute Care Clinic [facility] 1. [id number] [facility] 09:48:47 10:24:57 Care Parisa [facility] 350.1.13.10 ity of [place] 4.2.7.2.686 [place] Professio [phone] [address] Office [facility] 2020-02-23 2020-02-23 Urgent Pob1, Acute [facility] 1.2.840.114 [id number] 09:48:47 10:24:57 Care [facility] 350.1.13.10 [place] 4.2.7.2.686 Professio [phone] [place] [address] [facility] 2020-02-23 2020-02-23 Outpatient R SARAH [facility] [id number] Univers 10:20:00 10:20:00 PARISA roxaneangel [facility] 2020-02-01 2020-02-02 Urgent Provider, [facility] 1.2.840.114 [id number] Univers 15:19:08 09:58:50 Claritza Choudhury [facility] 350.1.13.10 ity of [place] 4.2.7.2.686 [place] Professio [phone] Ma dical [facility] [address] One 2020-02-01 2020-02-02 Urgent Provider, [facility] 1.2.053.737 [id number] 15:19:08 09:58:50 Care [facility] 350.1.13.10 Care [place] 4.2.7.2.686 Professio [phone] nal [address] One 2020-02-01 2020-02-01 Outpatient R KALEIGH, [facility] [id number] Univers 15:40:00 15:40:00 CLARITZA bettsangel [facility] 2019-11-22 2019-11-22 Outpatient Raju_P MMG MMG [id number] [place] 04:53:00 04:53:00 0325 [facility] Results Test Description Test Time Test Comments Results Result Comments Source POCT SARS-COV-2 ANTIGEN (BINAX NOW) 2022-08-19 15:51:00 Test Item Value Reference Range Interpretation Comme nts POCT SARS-COV-2 ANTIGEN (test code = 08247-8) Not Detected Not Dete cted On board controls acceptable with C Line (test code = Yes 3574) Lab Interpretation (test code = 36443-7) [facility] [id number] 16:26:10No acute cardiopulmonary disease. CHEST 2 VIEWS: HISTORY:pain in upper chest with breathing and decreased breath sounds inRLL, also pain in RLL. TECHNIQUE:: ?PA and lateral views of the chest are obtained. FINDINGS: The lungs are clear. The heart size and mediastinal silhouetteare normal. No pleural effusion or pneumothorax is seen. Possibly an old fracture of the right seventh rib laterally. [facility], Radiant Results Inft User - 12/02/2020 11:27 [...] right seventh rib laterally.IMPRESSIONNo acute cardiopulmonary disease.[facility] ([facility])2020-02-23 15:36:00 Test Item Value Reference Range Interpretation Comments POCT GP A STREP (test code = neg Negative - Negative 61161-0) [facility]
--- NOTE | 2023-02-07 21:28 | EDPHYS ---
Physician Documentation [facility] Name: Melissa Jacobson Age: 27 yrs Sex: Female : 1995 Arrival Date: 02/07/2023 Time: 21:13 Bed 10 Private MD: ED Physician Gonzales Bridges HPI: 02/07 21:35 This 27 yrs old Female presents to ER via Ambulatory with complaints of Ear kb Pain. 21:35 The patient presents with pain. The complaints affect the right ear. Onset: The kb symptoms/episode began/occurred yesterday. Modifying factors: The symptoms are alleviated by nothing, the symptoms are aggravated by pulling on ears. Associated signs and symptoms: The patient has no apparent associated signs or symptoms. Severity of symptoms: At their worst the symptoms were moderate in the emergency department the symptoms are unchanged. The patient has not experienced similar symptoms in the past. The patient has not recently seen a physician. Historical: - Allergies: 21:28 No Known Allergies; kl - Home Meds: 21:28 None [Active]; kl - PMHx: 21:28 None; kl - PSHx: 21:28 None; kl - Immunization history:: Adult Immunizations not immunized. - Social history:: Smoking status: Patient denies any tobacco usage or history of. ROS: 21:33 Constitutional: Negative for fever, chills, and weight loss. kb 21:33 ENT: Positive for ear pain. 21:33 All other systems are negative. Exam: 21:33 Constitutional: This is a well developed, well nourished patient who is awake, alert, kb and in no acute distress. Head/Face: Normocephalic, atraumatic. Cardiovascular: Regular rate and rhythm with a normal S1 and S2. No gallops, murmurs, or rubs. No pulse deficits. Respiratory: Respirations even and unlabored. No increased work of breathing. Talking in full sentences Skin: Warm, dry with normal turgor. Normal color. MS/ Extremity: Pulses equal, no cyanosis. Neurovascular intact. Full, normal range of motion. Neuro: Awake and alert, GCS 15, oriented to person, place, time, and situation. Moves all extremities. Normal gait. 21:33 ENT: Ear canal(s): purulent discharge, that is minimal, that is moderate, in the right canal, swelling, that is minimal, that is moderate, of the right canal, TM's: are normal. Vital Signs: 21:27 BP 177 / 108; Pulse 101; Resp 18; Temp 98.8(O); Pulse Ox 99% on R/A; Weight 104.33 kg kl (R); Height 5 ft. 4 in. ; Pain 9/10; 21:47 BP 148 / 97; Pulse 97; Resp 18; Pulse Ox 97% on R/A; lg3 21:27 Body Mass Index 39.48 (104.33 kg, 162.56 cm) kl 21:27 Pain Scale: Adult kl MDM: 21:19 Patient medically screened. kb 21:34 Differential diagnosis: otitis media, otitis externa, ruptured TM, foreign body, acute kb otalgia. Data reviewed: vital signs, nurses notes. Counseling: I had a detailed discussion with the patient and/or guardian regarding: the historical points, exam findings, and any diagnostic results supporting the discharge/admit diagnosis, the need for outpatient follow up, a family practitioner, to return to the emergency department if symptoms worsen or persist or if there are any questions or concerns that arise at home. Administered Medications: 21:10 Drug: Ketorolac IM 30 mg Route: IM; Site: right deltoid; kl 21:49 Follow up: Response: No adverse reaction kl Disposition Summary: 02/07/23 21:28 Discharge Ordered Location: Home kb Condition: Stable kb Diagnosis - Other otitis externa, right ear kb Followup: kb - With: Emergency Department - When: As needed - Reason: Worsening of condition Followup: kb - With: Private Physician - When: 2 - 3 days - Reason: Recheck today's complaints, Continuance of care, Re-evaluation by your physician Discharge Instructions: - Discharge Summary Sheet kb - Otitis Externa, Zoan-xa-Nwxa kb - Ear Drops, Adult, Exvr-xy-Kxpn kb Forms: - Medication Reconciliation Form kb - Thank You Letter kb - Antibiotic Education kb - Prescription Opioid Use kb Prescriptions: - Ciprodex 0.3-0.1 % Otic drops,suspension - instill 4 drops by OTIC route every 12 hours for 7 days , for ears ONLY; 1 kb unit; Refills: 0, Product Selection Permitted Signatures: Darcy Jones, FABIO-Saleem MCCARTHY-Lauren Dang, RN RN kl
[2023-02-07] MEDS ORDERED: KETOROLAC 30 MG/ML INJ ONE (21:42)
--- NOTE | 2023-02-07 21:48 | ER ---
Nurse's Notes [facility] Name: Melissa Jacobson Age: 27 yrs Sex: Female : 1995 Arrival Date: 02/07/2023 Time: 21:13 Bed 10 Private MD: Diagnosis: Other otitis externa, right ear Presentation: 02/07 21:27 Chief complaint: Patient states: right ear pain began today. Coronavirus screen: kl Vaccine status: Patient reports being unvaccinated. Ebola Screen: Patient negative for fever greater than or equal to 101.5 degrees Fahrenheit, and additional compatible Ebola Virus Disease symptoms. Initial Sepsis Screen: Does the patient meet any 2 criteria? No. Patient's initial sepsis screen is negative. Does the patient have a suspected source of infection? No. Patient's initial sepsis screen is negative. Risk Assessment: Do you want to hurt yourself or someone else? Patient reports no desire to harm self or others. 21:27 Method Of Arrival: Ambulatory 21:27 Acuity: FLAVIO 5 kl Triage Assessment: 21:29 General: Appears in no apparent distress. Behavior is calm, cooperative, Smells of. kl Pain: Complains of pain in right ear Pain currently is 9 out of 10 on a pain scale. EENT: Reports pain in right ear. Historical: - Allergies: 21:28 No Known Allergies; kl - Home Meds: 21:28 None [Active]; kl - PMHx: 21:28 None; kl - PSHx: 21:28 None; kl - Immunization history:: Adult Immunizations not immunized. - Social history:: Smoking status: Patient denies any tobacco usage or history of. Screenin:47 [facility] ED Fall Risk Assessment (Adult) History of falling in the last 3 months, lg3 including since admission No falls in past 3 months (0 pts) Confusion or Disorientation No (0 pts) Intoxicated or Sedated No (0 pts) Impaired Gait No (0 pts) Mobility Assist Device Used No (0 pt) Altered Elimination No (0 pt) Score/Fall Risk Level 0 - 2 = Low Risk Oriented to surroundings, Maintained a safe environment. Abuse screen: Denies threats or abuse. Nutritional screening: No deficits noted. Tuberculosis screening: No symptoms or risk factors identified. Assessment: 21:46 Reassessment: Patient appears in no apparent distress at this time. lg3 Vital Signs: 21:27 BP 177 / 108; Pulse 101; Resp 18; Temp 98.8(O); Pulse Ox 99% on R/A; Weight 104.33 kg kl (R); Height 5 ft. 4 in. ; Pain 9/10; 21:47 BP 148 / 97; Pulse 97; Resp 18; Pulse Ox 97% on R/A; lg3 21:27 Body Mass Index 39.48 (104.33 kg, 162.56 cm) kl 21:27 Pain Scale: Adult ED Course: 21:15 Patient arrived in ED. ja2 21:19 Darcy Jones [facility]-C [facility] kb 21:19 Gonzales Bridges MD is Attending Physician. kb 21:28 Triage completed. kl 21:46 Danna Knox, RN is Primary Nurse. lg3 21:47 Patient has correct armband on for positive identification. lg3 21:47 No provider procedures requiring assistance completed. Patient did not have IV access lg3 during this emergency room visit. Administered Medications: 21:10 Drug: Ketorolac IM 30 mg Route: IM; Site: right deltoid; 21:49 Follow up: Response: No adverse reaction Medication: 21:46 VIS not applicable for this client. lg3 Outcome: 21:28 Discharge ordered by . kb 21:48 Discharged to home ambulatory. lg3 21:48 Condition: stable 21:48 Discharge instructions given to patient, Instructed on discharge instructions, follow up and referral plans. medication usage, Demonstrated understanding of instructions, follow-up care, medications, Prescriptions given X 1. 21:48 Patient left the ED. lg3 Signatures: Darcy Jones FNP-C FNP-Lauren Dang, RN RN Danna Price, RN RN [facility] [place]
[2023-02-07 22:05] VITALS: TEMP 98.8
[2023-02-07 22:06] VITALS: BP 148/97; O2SAT 97
== END 2023-02-07 21:48 | disposition home or self-care (01) ==
LOC: ER 21:13
DX: H60.8X1 Other otitis externa, right ear (principal)
CPT/HCPCS: 96372; 99284

== ENCOUNTER 2023-05-19 12:32 | Emergency (ER) | payer BC ==
--- OUTSIDE RECORDS SUMMARY | 2023-05-19 12:36 | XMS REPORT | Continuity of Care Document ---
:1995 Author Organization [facility] t Address [address] [place] [address] [address] [place] [address] Care Team Providers Name Role Phone Kristy Moreno Primary Care Physician RUDDY BARONE Attending Clinician Unavailable Ruddy Parmar Attending Clinician Vikas More NP Attending Clinician IBIKUNLORETO STOKES F Attending Clinician Unavailable Ibikunle Loreto MCCARTHY F Attending Clinician Only, Ang Db Test Attending Clinician Unavailable Unknown, Attending Attending Clinician Unavailable Ebrahim Eduarda MCCARTHY Attending Clinician EBCRISTÓBAL RANIA Attending Clinician Unavailable UNKNOWN, ATTENDING Attending Clinician Unavailable Nurse, Jeffrey [facility] Attending Clinician Unavailable VIKAS MORE Attending Clinician Unavailable Only, Adc Pob2 Test Attending Clinician Unavailable Baron Ruiz DO Attending Clinician BARON RUIZ Attending Clinician Unavailable Lexy Urias MD Attending Clinician LEXY URIAS Attending Clinician Unavailable Claritza Mulligan Attending Clinician Lab, Jeffrey [facility] Pob I Attending Clinician Unavailable CLARITZA FARRIS Attending Clinician Unavailable Torri Vasquez Attending Clinician TORRI BYNUM Attending Clinician Unavailable Doctor Unassigned, [place] Attending Clinician Unavailable Ashley Sebastian MD Attending Clinician [phone] ASHLEY SEBASTIAN Attending Clinician Unavailable Pob[facility], [facility] Attending Clinician Unavailable Sarah MCCARTHY, Parisa Attending Clinician PARISA REDMAN Attending Clinician Unavailable Provider, [facility] Attending Clinician Unavailable Raju_P Attending Clinician Unavailable Raju_P Admitting Clinician Unavailable Payers Payer Name Policy Type Policy Number Effective Date Expiration Date S ource [employer] [place] [id number] 2018 EMPLOYEE PLAN 00:00:00 [employer] [place] [id number] 2018 00:00:00 Problems Condition Condition Condition Status Onset Resolution Last Treating Co mments Source Name Details Category Date Date Treatment Clinician Date Non-recurr Non-recurr Disease Active U nivers ent acute ent acute 8-20 ity of serous serous 00:00: [place] otitis otitis 00 Medical media of media of Branch right ear right ear Acute ear Acute ear Disease Active Uni vers pain, pain, 8-20 ity of right right 00:00: [address] Acute ear Acute ear Disease Active Uni vers pain, pain, 8-20 ity of right right 00:00: [address] No known No known Disease Unive rs active active ity of problems problems [facility] Allergies, Adverse Reactions, Alerts Allergy Allergy Status Severity Reaction(s) Onset Inactive Treating Comm ents Source Name Type Date Date Clinician NO KNOWN Drug Active Univers ALLERGIE Class ity of S [facility] Social History Social Habit Start Date Stop Date Quantity Comments Source Gender identity Universit y of [facility] Sexual orientation Univer sity of [facility] Tobacco use and 2022-11-09 2022-11-09 Smokeless Universit y of exposure 00:00:00 00:00:00 tobacco non-user [facility] Exposure to 2022-08-09 2022-08-19 Not sure [facility] SARS-CoV-2 (event) 00:00:00 09:37:00 [facility] History of Social 2022-08-17 2022-08-17 Univers ity of function 00:00:00 00:00:00 [facility] Sex Assigned At [birth year] Universit y of 00:00:00 00:00:00 [facility] Smoking Status Start Date Stop Date Source Never smoked tobacco [facility] Medications Ordered Filled Start Stop Current Ordering Indication Dosage Frequency Signature Comments Components Source Medication Medication Date Date Medication? Clinician (SIG) Name Name ciprofloxac Yes [id number] 4[drp] Place 4 Univers in-dexameth 8-18 Drops in ity of asone 00:00: left ear [place] 0.3-0.1 % 00 in the Medical otic drops morning Branch and 4 Drops in the evening. ciprofloxac Yes [id number] 4[drp] Place 4 Univers in-dexameth 8-18 Drops in ity of asone 00:00: left ear [place] 0.3-0.1 % 00 in the Medical otic drops morning Branch and 4 Drops in the evening. ciprofloxac Yes [id number] 4[drp] Place 4 Univers in-dexameth 8-18 Drops in ity of asone 00:00: left ear [place] 0.3-0.1 % 00 in the Medical otic drops morning Branch and 4 Drops in the evening. ciprofloxac Yes [id number] 4[drp] Place 4 Univers in-dexameth 8-18 Drops in ity of asone 00:00: left ear [place] 0.3-0.1 % 00 in the Medical otic drops morning Branch and 4 Drops in the evening. amoxicillin Yes [id number] 1{tbl} Take 1 Univers -clavulanat 8-18 tablet by ity of e 00:00: mouth in [place] (AUGMENTIN) 00 the Medical 875-125 mg morning Branch per tablet and 1 tablet in the evening. amoxicillin 2022- Yes [id number] 1{tbl} Take 1 Univers -clavulanat 8-18 08-29 tablet by it y of e 00:00: 04:59 mouth in [place] (AUGMENTIN) 00 :00 the Medical 875-125 mg morning Branch per tablet and 1 tablet in the evening. Do all this for 10 days. amoxicillin 2022- Yes [id number] 1{tbl} Take 1 Univers -clavulanat 8-18 08-29 tablet by it y of e 00:00: 04:59 mouth in [place] (AUGMENTIN) 00 :00 the Medical 875-125 mg morning Branch per tablet and 1 tablet in the evening. Do all this for 10 days. amoxicillin 2022- Yes [id number] 1{tbl} Take 1 Univers -clavulanat 8-18 08-29 tablet by it y of e 00:00: 04:59 mouth in [place] (AUGMENTIN) 00 :00 the Medical 875-125 mg morning Branch per tablet and 1 tablet in the evening. Do all this for 10 days. ciprofloxac 2022- No [id number] 4[drp] Place 4 Univers in-dexameth 8-18 -18 Drops in ity of asone 00:00: 00:00 left ear [place] 0.3-0.1 % 00 :00 in the Medical otic drops morning Branch and 4 Drops in the evening. amoxicillin 2022- No [id number] 1{tbl} Take 1 Univers -clavulanat 8-18 08-18 tablet by it y of e 00:00: 00:00 mouth in [place] (AUGMENTIN) 00 :00 the Medical 875-125 mg morning Branch per tablet and 1 tablet in the evening. Do all this for 10 days. MELOXICAM Yes [id number] 15mg TAKE 1 Univers 15 mg 7-11 [id number] TABLET BY ity of tablet 00:00: MOUTH ONCE [place] 00 DAILY Medical NEEDED FOR Branch PAIN OR INFLAMMATI ON. MELOXICAM 0 Yes [id number] 15mg TAKE 1 Univers 15 mg 7-11 [id number] TABLET BY ity of tablet 00:00: MOUTH ONCE [place] 00 DAILY Medical NEEDED FOR Branch PAIN OR INFLAMMATI ON. MELOXICAM 0 Yes [id number] 15mg TAKE 1 Univers 15 mg 7-11 [id number] TABLET BY ity of tablet 00:00: MOUTH ONCE [place] 00 DAILY Medical NEEDED FOR Branch PAIN OR INFLAMMATI ON. MELOXICAM 0 Yes [id number] 15mg TAKE 1 Univers 15 mg 7-11 [id number] TABLET BY ity of tablet 00:00: MOUTH ONCE [place] 00 DAILY Medical NEEDED FOR Branch PAIN OR INFLAMMATI ON. MELOXICAM 0 Yes [id number] 15mg TAKE 1 Univers 15 mg 7-11 [id number] TABLET BY ity of tablet 00:00: MOUTH ONCE [place] 00 DAILY Medical NEEDED FOR Branch PAIN OR INFLAMMATI ON. meloxicam 0 Yes [id number] 15mg Take 1 Univers 15 mg 6-12 [id number] tablet by ity of tablet 00:00: mouth once [place] 00 daily as Medical needed for Branch Pain or Inflammati on. ofloxacin Yes [id number] 5[drp] Place 5 Univers 0.3 % otic 6-12 Drops in ity o f drops 00:00: right ear [place] 00 in the Medical morning Branch and 5 Drops in the evening. meloxicam Yes [id number] 15mg Take 1 Univers 15 mg 6-12 [id number] tablet by ity of tablet 00:00: mouth once [place] 00 daily as Medical needed for Branch Pain or Inflammati on. ofloxacin Yes [id number] 5[drp] Place 5 Univers 0.3 % otic 6-12 Drops in ity o f drops 00:00: right ear [place] 00 in the Medical morning Branch and 5 Drops in the evening. meloxicam Yes [id number] 15mg Take 1 Univers 15 mg 6-12 [id number] tablet by ity of tablet 00:00: mouth once [place] 00 daily as Medical needed for Branch Pain or Inflammati on. ofloxacin Yes [id number] 5[drp] Place 5 Univers 0.3 % otic 6-12 Drops in ity o f drops 00:00: right ear [place] 00 in the Medical morning Branch and 5 Drops in the evening. ofloxacin Yes [id number] 5[drp] Place 5 Univers 0.3 % otic 6-12 Drops in ity o f drops 00:00: right ear [place] 00 in the Medical morning Branch and 5 Drops in the evening. ofloxacin 2022- No [id number] 5[drp] Place 5 Univers 0.3 % otic 6-12 08-18 Drops in ity of drops 00:00: 00:00 right ear [place] 00 :00 in the Medical morning Branch and 5 Drops in the evening. ofloxacin 2022- No [id number] 5[drp] Place 5 Univers 0.3 % otic 6-12 08-18 Drops in ity of drops 00:00: 00:00 right ear [place] 00 :00 in the Medical morning Branch and 5 Drops in the evening. ofloxacin 2022- No [id number] 5[drp] Place 5 Univers 0.3 % otic 6-12 08-18 Drops in ity of drops 00:00: 00:00 right ear [place] 00 :00 in the Medical morning Branch and 5 Drops in the evening. ofloxacin 2022- No [id number] 5[drp] Place 5 Univers 0.3 % otic 6-12 08-18 Drops in ity of drops 00:00: 00:00 right ear [place] 00 :00 in the Medical morning Branch and 5 Drops in the evening. meloxicam 2022- No [id number] 15mg Take 1 Univers 15 mg 02-08-04 tablet by ity of tablet 00:00: 00:00 mouth [place] 00 :00 daily as Medical needed for Branch Pain or Inflammati on. cefdinir 2022- No [id number] 300mg Take 1 U nivers 300 mg 02-08 capsule by ity of capsule 00:00: 04:59 mouth [place] 00 :00 every 12 Medical (twelve) Branch hours for 10 days. amoxicillin 2022- No [id number] 1{tbl} Take 1 Univers -clavulanat -08 04- tablet by it y of e 00:00: 04:59 mouth in [place] (AUGMENTIN) 00 :00 the Medical 875-125 mg morning Branch per tablet and 1 tablet in the evening. Do all this for 10 days. amoxicillin 2022- No [id number] 1{tbl} Take 1 Univers -clavulanat 6-08 04-23 tablet by it y of e 00:00: 04:59 mouth in [place] (AUGMENTIN) 00 :00 the Medical 875-125 mg morning Branch per tablet and 1 tablet in the evening. Do all this for 10 days. cefdinir 2022- No [id number] 300mg Take 1 U nivers 300 mg -08 04- capsule by ity of capsule 00:00: 00:00 mouth [place] 00 :00 every 12 Medical (twelve) Branch hours for 10 days. cefdinir 2022-0 3- No [id number] 300mg Take 1 U nivers 300 mg 02-08 capsule by ity of capsule 00:00: 00:00 mouth [place] 00 :00 every 12 Medical (twelve) Branch hours for 10 days. ofloxacin 2022-0 Yes [id number] 4[drp] Place 4 Univers 0.3 % 3-13 Drops in ity of ophthalmic 00:00: left ear 4 [place] solution 00 (four) Medical times Branch daily. ofloxacin 2022-0 Yes [id number] 4[drp] Place 4 Univers 0.3 % 3-13 Drops in ity of ophthalmic 00:00: left ear 4 [place] solution 00 (four) Medical times Branch daily. ofloxacin 2022-0 Yes [id number] 4[drp] Place 4 Univers 0.3 % 3-13 Drops in ity of ophthalmic 00:00: left ear 4 [place] solution 00 (four) Medical times Branch daily. ofloxacin 2022-0 Yes [id number] 4[drp] Place 4 Univers 0.3 % 3-13 Drops in ity of ophthalmic 00:00: left ear 4 [place] solution 00 (four) Medical times Branch daily. ofloxacin 2022-0 Yes [id number] 4[drp] Place 4 Univers 0.3 % 3-13 Drops in ity of ophthalmic 00:00: left ear 4 [place] solution 00 (four) Medical times Branch daily. ofloxacin 2022-0 Yes [id number] 4[drp] Place 4 Univers 0.3 % 3-13 Drops in ity of ophthalmic 00:00: left ear 4 [place] solution 00 (four) Medical times Branch daily. ofloxacin 2022-0 3- No [id number] 4[drp] Place 4 Univers 0.3 % 3-13 08-18 Drops in ity of ophthalmic 00:00: 00:00 left ear 4 [place] solution 00 :00 (four) Medical times Branch daily. ofloxacin 2022-0 2022- No [id number] 4[drp] Place 4 Univers 0.3 % 3-13 08-18 Drops in ity of ophthalmic 00:00: 00:00 left ear 4 [place] solution 00 :00 (four) Medical times Branch daily. ofloxacin 2022- No [id number] 4[drp] Place 4 Univers 0.3 % 3-13 08-18 Drops in ity of ophthalmic 00:00: 00:00 left ear 4 [place] solution 00 :00 (four) Medical times Branch daily. ofloxacin 2022- No [id number] 4[drp] Place 4 Univers 0.3 % 3-13 08-18 Drops in ity of ophthalmic 00:00: 00:00 left ear 4 [place] solution 00 :00 (four) Medical times Branch daily. benzonatate 2021-08 Yes [id number] 100mg Take 1 Univers (TESSALON 2-19 capsule by ity of PERLES) 100 00:00: mouth [place] mg capsule 00 every 8 Medica l (eight) Branch hours as needed for Cough. bromphenira 2021-08 Yes [id number] 5mL Take 5 mL Univers mine-pseudo 2-19 by mouth 4 it y of ephedrine-D 00:00: (four) [place] M (BROMFED 00 times Medical DM) 2-30-10 daily as Bran ch mg/5 mL needed for syrup Congestion /Allergies , Cold symptoms or Cough. benzonatate 2021-08 Yes [id number] 100mg Take 1 Univers (TESSALON 2-19 capsule by ity of PERLES) 100 00:00: mouth [place] mg capsule 00 every 8 Medica l (eight) Branch hours as needed for Cough. bromphenira 2021-08 Yes [id number] 5mL Take 5 mL Univers mine-pseudo 2-19 by mouth 4 it y of ephedrine-D 00:00: (four) [place] (BROMFED 00 times Medical DM) 2-30-10 daily as Bran ch mg/5 mL needed for syrup Congestion /Allergies , Cold symptoms or Cough. molnupiravi 2021-08 Yes [id number] 800mg Take 4 Univers r 200 mg 2-19 capsules ity of capsule 00:00: by mouth [place] 00 every 12 Medical (twelve) Branch hours. benzonatate 2021-08 Yes [id number] 100mg Take 1 Univers (TESSALON 2-19 capsule by ity of PERLES) 100 00:00: mouth [place] mg capsule 00 every 8 Medica l (eight) Branch hours as needed for Cough. bromphenira 2021-08 Yes [id number] 5mL Take 5 mL Univers mine-pseudo 2-19 by mouth 4 it y of ephedrine-D 00:00: (four) [place] (BROMFED 00 times Medical DM) 2-30-10 daily as Bran ch mg/5 mL needed for syrup Congestion /Allergies , Cold symptoms or Cough. molnupiravi 2021-08 Yes [id number] 800mg Take 4 Univers r 200 mg 2-19 capsules ity of capsule 00:00: by mouth [place] 00 every 12 Medical (twelve) Branch hours. benzonatate 2021-08- No [id number] 100mg Take 1 Univers (TESSALON -15 11- capsule by ity of TODD) 100 00:00: 00:00 mouth [place] mg capsule 00 :00 every 8 Medica l (eight) Branch hours as needed for Cough. bromphenira 2021-08- No [id number] 5mL Take 5 mL Univers mine-pseudo -15 11- by mouth 4 i ty of ephedrine-D 00:00: 00:00 (four) [place] as M (BROMFED 00 :00 times Medical DM) 2-30-10 daily as Bran ch mg/5 mL needed for syrup Congestion /Allergies , Cold symptoms or Cough. molnupiravi 2021-08- No [id number] 800mg Take 4 Univers r 200 mg 2-19 -13 capsules ity of capsule 00:00: 00:00 by mouth [place] 00 :00 every 12 Medical (twelve) Branch hours. amoxicillin 2021-08- No [id number] 1{tbl} Take 1 Univers -clavulanat 2-19 12-27 tablet by it y of e 00:00: 05:59 mouth in [place] (AUGMENTIN) 00 :00 the Medical 875-125 mg morning Branch per tablet and 1 tablet in the evening. Do all this for 7 days. amoxicillin 2021-08- No [id number] 1{tbl} Take 1 Univers -clavulanat 2-19 12-27 tablet by it y of e 00:00: 05:59 mouth in [place] (AUGMENTIN) 00 :00 the Medical 875-125 mg morning Branch per tablet and 1 tablet in the evening. Do all this for 7 days. amoxicillin 2021-08 202- No [id number] 1{tbl} Take 1 Univers -clavulanat 2-19 12-27 tablet by it y of e 00:00: 05:59 mouth in [place] (AUGMENTIN) 00 :00 the Medical 875-125 mg morning Branch per tablet and 1 tablet in the evening. Do all this for 7 days. amoxicillin 2020-0 Yes [id number] 1{tbl} Take 1 Univers -clavulanat 8-20 tablet by ity of e 00:00: mouth 2 [place] (AUGMENTIN) 00 (two) Medical 875-125 mg times Branch per tablet daily. ibuprofen 2020-0 Yes [id number] 600mg Take 1 Univers 600 mg 8-20 tablet by ity of tablet 00:00: mouth [place] 00 every 6 Medical (six) Branch hours as needed for Pain (scale 4-6). amoxicillin 2020-0 Yes [id number] 1{tbl} Take 1 Univers -clavulanat 8-20 tablet by ity of e 00:00: mouth 2 [place] (AUGMENTIN) 00 (two) Medical 875-125 mg times Branch per tablet daily. ibuprofen 2020-0 Yes [id number] 600mg Take 1 Univers 600 mg 8-20 tablet by ity of tablet 00:00: mouth [place] 00 every 6 Medical (six) Branch hours as needed for Pain (scale 4-6). amoxicillin 2020-0 Yes [id number] 1{tbl} Take 1 Univers -clavulanat 8-20 tablet by ity of e 00:00: mouth 2 [place] (AUGMENTIN) 00 (two) Medical 875-125 mg times Branch per tablet daily. ibuprofen 2020-0 Yes [id number] 600mg Take 1 Univers 600 mg 8-20 tablet by ity of tablet 00:00: mouth [place] 00 every 6 Medical (six) Branch hours as needed for Pain (scale 4-6). amoxicillin 2020-0 Yes [id number] 1{tbl} Take 1 Univers -clavulanat 8-20 tablet by ity of e 00:00: mouth 2 [place] (AUGMENTIN) 00 (two) Medical 875-125 mg times Branch per tablet daily. ibuprofen 2020-0 Yes [id number] 600mg Take 1 Univers 600 mg 8-20 tablet by ity of tablet 00:00: mouth [place] 00 every 6 Medical (six) Branch hours as needed for Pain (scale 4-6). amoxicillin 2020-0 Yes [id number] 1{tbl} Take 1 Univers -clavulanat 8-20 tablet by ity of e 00:00: mouth 2 [place] (AUGMENTIN) 00 (two) Medical 875-125 mg times Branch per tablet daily. ibuprofen 2020-0 Yes [id number] 600mg Take 1 Univers 600 mg 8-20 tablet by ity of tablet 00:00: mouth [place] 00 every 6 Medical (six) Branch hours as needed for Pain (scale 4-6). amoxicillin 2020-0 Yes [id number] 1{tbl} Take 1 Univers -clavulanat 8-20 tablet by ity of e 00:00: mouth 2 [place] (AUGMENTIN) 00 (two) Medical 875-125 mg times Branch per tablet daily. ibuprofen 2020-0 Yes [id number] 600mg Take 1 Univers 600 mg 8-20 tablet by ity of tablet 00:00: mouth [place] 00 every 6 Medical (six) Branch hours as needed for Pain (scale 4-6). amoxicillin 2020-0 Yes [id number] 1{tbl} Take 1 Univers -clavulanat 8-20 tablet by ity of e 00:00: mouth 2 [place] (AUGMENTIN) 00 (two) Medical 875-125 mg times Branch per tablet daily. ibuprofen 2020-0 Yes [id number] 600mg Take 1 Univers 600 mg 8-20 tablet by ity of tablet 00:00: mouth [place] 00 every 6 Medical (six) Branch hours as needed for Pain (scale 4-6). amoxicillin 2020-0 Yes [id number] 1{tbl} Take 1 Univers -clavulanat 8-20 tablet by ity of e 00:00: mouth 2 [place] (AUGMENTIN) 00 (two) Medical 875-125 mg times Branch per tablet daily. ibuprofen 2020-0 Yes [id number] 600mg Take 1 Univers 600 mg 8-20 tablet by ity of tablet 00:00: mouth [place] 00 every 6 Medical (six) Branch hours as needed for Pain (scale 4-6). amoxicillin 2020-0 Yes [id number] 1{tbl} Take 1 Univers -clavulanat 8-20 tablet by ity of e 00:00: mouth 2 [place] (AUGMENTIN) 00 (two) Medical 875-125 mg times Branch per tablet daily. ibuprofen 2020-0 Yes [id number] 600mg Take 1 Univers 600 mg 8-20 tablet by ity of tablet 00:00: mouth [place] 00 every 6 Medical (six) Branch hours as needed for Pain (scale 4-6). amoxicillin Yes [id number] 1{tbl} Take 1 Univers -clavulanat 8-20 tablet by ity of e 00:00: mouth 2 [place] (AUGMENTIN) 00 (two) Medical 875-125 mg times Branch per tablet daily. ibuprofen 2020- Yes [id number] 600mg Take 1 Univers 600 mg 8-20 tablet by ity of tablet 00:00: mouth [place] 00 every 6 Medical (six) Branch hours as needed for Pain (scale 4-6). amoxicillin Yes [id number] 1{tbl} Take 1 Univers -clavulanat 8-20 tablet by ity of e 00:00: mouth 2 [place] (AUGMENTIN) 00 (two) Medical 875-125 mg times Branch per tablet daily. amoxicillin Yes [id number] 1{tbl} Take 1 Univers -clavulanat 8-20 tablet by ity of e 00:00: mouth 2 [place] (AUGMENTIN) 00 (two) Medical 875-125 mg times Branch per tablet daily. amoxicillin 2022- No [id number] 1{tbl} Take 1 Univers -clavulanat 8-20 06-12 tablet by it y of e 00:00: 00:00 mouth 2 [place] (AUGMENTIN) 00 :00 (two) Medical 875-125 mg times Branch per tablet daily. ibuprofen 2022- No [id number] 600mg Take 1 Univers 600 mg 8-20 03-13 tablet by ity of tablet 00:00: 00:00 mouth [place] 00 :00 every 6 Medical (six) Branch hours as needed for Pain (scale 4-6). ofloxacin 2019- No [id number] 5[drp] Place 5 Univers 0.3 % otic 6-05 06-16 Drops in ity of drops 00:00: 04:59 left ear 2 [place] 00 :00 (two) Medical times Branch daily for 10 days. ibuprofen 2020-0 2020- No [id number] 600mg Take 1 Univers 600 mg 6-04 06-12 tablet by ity of tablet 00:00: 04:59 mouth 3 [place] 00 :00 (three) Medical times Branch daily with meals for 7 days. ciprofloxac 2020-0 2020- No [id number] 4[drp] Place 4 Univers in-dexameth 6-04 06-12 Drops in ity of asone 00:00: 04:59 left ear 2 [place] (CIPRODEX) 00 :00 (two) Medical 0.3-0.1 % times Branch otic drops daily for 7 days. ibuprofen 2019- 2020- No [id number] 600mg Take 1 Univers 600 mg 6-04 06-12 tablet by ity of tablet 00:00: 04:59 mouth 3 [place] 00 :00 (three) Medical times Branch daily with meals for 7 days. ciprofloxac 2019- 2020- No [id number] 4[drp] Place 4 Univers in-dexameth 6-04 06-05 Drops in ity of asone 00:00: 00:00 left ear 2 [place] (CIPRODEX) 00 :00 (two) Medical 0.3-0.1 % times Branch otic drops daily for 7 days. ciprofloxac 2019-0 2020- No [id number] 4[drp] Place 4 Univers in-dexameth 6-04 06-04 Drops in ity of asone 00:00: 00:00 left ear 2 [place] (CIPRODEX) 00 :00 (two) Medical 0.3-0.1 % times Branch otic drops daily for 7 days. ciprofloxac 2019-0 2020- No [id number] 4[drp] Place 4 Univers in-dexameth 6-04 06-04 Drops in ity of asone 00:00: 00:00 left ear 2 [place] (CIPRODEX) 00 :00 (two) Medical 0.3-0.1 % times Branch otic drops daily for 7 days. No known No Univers medications ity [facility] No known No Univers medications ity [facility] No known No Univers medications ity [facility] No known No Univers medications ity [facility] No known No Univers medications ity [facility] No known No Univers medications ity [facility] No known No Univers medications ity of [place] [facility] No [facility] No Univers medications ity of [place] [facility] No [facility] No Univers medications ity of [place] [facility] No known No Univers medications ity of [place] [facility] No known No Univers medications ity of [place] [facility] No known No Univers medications ity of [place] [facility] No known No Univers medications ity of [facility] Branch No known No Univers medications ity of [place] [facility] Vital Signs Vital Name Observation Time Observation Value Comments Source Systolic blood 2023-04-16 14:00:00 129 mm[Hg] Univer sity of pressure [facility] Branch Diastolic blood 2023-04-16 14:00:00 82 mm[Hg] Unive rsity of [facility] Heart rate 2023-04-16 14:00:00 84 /min Universi ty of [facility] Body temperature 2023-04-16 14:00:00 36.78 [place] [facility] Respiratory rate 2023-04-16 14:00:00 16 /min Univ ersity of [facility] Body height 2023-04-16 14:00:00 162.6 cm Universi ty of [place] [facility] Body weight 2023-04-16 14:00:00 149.687 kg Universi ty of [facility] Branch BMI 2023-04-16 14:00:00 56.64 kg/m2 Universi ty of [facility] Oxygen saturation in 2023-04-16 14:00:00 99 /min [facility] Arterial blood by [facility] Pulse oximetry Branch Systolic blood 2023-02-03 04:12:00 165 mm[Hg] Univer sity of [facility] Diastolic blood 2023-02-03 04:12:00 106 mm[Hg] Unive rsity of pressure [facility] Heart rate 2023-02-03 04:12:00 93 /min Universi ty of [facility] Branch Body temperature 2023-02-03 04:12:00 37.39 [place] Univ ersity of [facility] Branch Respiratory rate 2023-02-03 04:12:00 20 /min Univ ersity of [facility] Branch Body height 2023-02-03 04:12:00 162.6 cm Universi ty of [place] [facility] Body weight 2023-02-03 04:12:00 157.988 kg Universi ty of [place] [facility] BMI 2023-02-03 04:12:00 59.79 kg/m2 Universi ty of [place] [facility] Oxygen saturation in 2023-02-03 04:12:00 100 /min University of Arterial blood by [facility] surinder Pulse oximetry Branch Systolic blood 2020-02-23 14:58:00 146 mm[Hg] Univer sity of pressure [place] [facility] Diastolic blood 2020-02-23 14:58:00 96 mm[Hg] Unive rsity of pressure [place] [facility] Heart rate 2020-02-23 14:58:00 114 /min Universi ty of [place] [facility] Body temperature 2020-02-23 14:56:00 36.94 [place] Univ ersity of [place] [facility] Respiratory rate 2020-02-23 14:56:00 18 /min Univ ersity of [place] [facility] Body height 2020-02-23 14:56:00 162.6 cm [facility] Body weight 2020-02-23 14:56:00 108.863 kg [facility] BMI 2020-02-23 14:56:00 41.20 kg/m2 [facility] Oxygen saturation in 2020-02-23 14:56:00 99 /min [facility] Arterial blood by [facility] Pulse oximetry Branch Systolic blood 2020-02-23 14:58:00 146 mm[Hg] [facility] Diastolic blood 2020-02-23 14:58:00 96 mm[Hg] [facility] Heart rate 2020-02-23 14:58:00 114 /min [facility] Body temperature 2020-02-23 14:56:00 36.94 Tessa [facility] Respiratory rate 2020-02-23 14:56:00 18 /min [facility] Body height 2020-02-23 14:56:00 162.6 cm [facility] Body weight 2020-02-23 14:56:00 108.863 kg [facility] BMI 2020-02-23 14:56:00 41.20 kg/m2 [facility] Oxygen saturation in 2020-02-23 14:56:00 99 /min [facility] Arterial blood by [facility] Pulse oximetry Branch Systolic blood 2020-02-01 21:03:00 139 mm[Hg] [facility] Diastolic blood 2020-02-01 21:03:00 89 mm[Hg] [facility] Heart rate 2020-02-01 21:03:00 92 /min [facility] Body temperature 2020-02-01 21:03:00 37.06 Tessa [facility] Respiratory rate 2020-02-01 21:03:00 17 /min [facility] Body height 2020-02-01 21:03:00 162.6 cm [facility] Body weight 2020-02-01 21:03:00 106.595 kg [facility] BMI 2020-02-01 21:03:00 40.34 kg/m2 [facility] Oxygen saturation in 2020-02-01 21:03:00 98 /min [facility] blood by [facility] Pulse oximetry Branch Systolic blood 2020-02-01 21:03:00 139 mm[Hg] [facility] Diastolic blood 2020-02-01 21:03:00 89 mm[Hg] [facility] Heart rate 2020-02-01 21:03:00 92 /min [facility] Body temperature 2020-02-01 21:03:00 37.06 Tessa [facility] Respiratory rate 2020-02-01 21:03:00 17 /min [facility] Body height 2020-02-01 21:03:00 162.6 cm [facility] Body weight 2020-02-01 21:03:00 106.595 kg [facility] BMI 2020-02-01 21:03:00 40.34 kg/m2 [facility] Oxygen saturation in 2020-02-01 21:03:00 98 /min [facility] Arterial blood by [facility] [facility] Pulse oximetry Branch Procedures Procedure Date / Time Performing Clinician Source Performed NOTICE OF PRIVACY 2023-02-03 04:06:39 Doctor Unassigned, [facility] PRACTICES [facility] CONSENT/REFUSAL FOR 2023-02-03 04:06:13 Doctor Unassigned, [facility] DIAGNOSIS AND TREATMENT [facility] POCT SARS-COV-2 ANTIGEN 2022-08-19 15:51:00 Alexys Sam [facility] (BINAX NOW) Medical Branch COVID-19 (ID NOW RAPID 2022-08-17 15:28:00 Vikas More [facility] TESTING) Medical Branch LAB ONLY COVID 2022-08-17 15:28:00 Vikas More [facility] INTERPRETATION Medical Branch CONSENT/REFUSAL FOR 2021-02-24 22:08:57 Doctor Unassigned, [facility] DIAGNOSIS AND TREATMENT [facility] ASSIGNMENT OF BENEFITS 2021-02-24 22:08:43 Doctor Unassigned, [facility] XR CHEST 2 VW 2020-12-02 14:39:32 Ashley Sebastian [facility] A Medical Branch POCT GRP A STREP 2020-02-23 00:00:00 Radhika Oscar [facility] (MOLECULAR) Medical Branch Encounters Start End Encounter Admission Attending Care Care Encounter Source Date/Time Date/Time Type Type Clinicians Facility Department ID 2023-04-16 2023-04-16 Outpatient R ROBERT [facility] [id number] [facility] 09:00:00 09:19:48 RUDDY greco [facility] 2023-04-16 2023-04-16 Office Robert [facility] 1.2.840.114 [id number] Univers 09:00:00 09:19:48 Visit Ruddy CERVANTES [id number] i ty [facility] [id number] [id number] [address] 2023-03-07 2023-03-07 Refill Derik [facility] 1.2.840.114 [id number] Univers 00:00:00 00:00:00 Vikas CERVANTES 350.1.13.10 ity jessica [facility] [id number] [phone] [address] 2023-02-08 2023-02-08 Telephone Derik [place] 1.2.840.114 [id number] Univers 00:00:00 00:00:00 Vikas CERVANTES 350.1.13.10 ity of [facility] [id number] [phone] [address] 2023-02-08 2023-02-08 Telephone Derik [facility] 1.2.840.114 [id number] Univers 00:00:00 00:00:00 OgCritical access hospital [id number] ity of [place] [id number] [place] as CATERINA?BLEA [phone] [address] OFFICE [facility] 2023-02-02 2023-02-03 Emergency [facility] [id number] Univers 23:16:00 01:40:00 FOLUSHO ity of [facility] 2023-02-02 2023-02-03 Emergency [facility] 1.2.840.114 [id number] Univers 23:16:00 01:40:00 Loreto CERVANTES 350.1.13.10 ity of [facility] 4.2.7.2.[place] [phone] [address] 2022-11-09 2022-11-09 Outpatient R ROBERT [facility] [id number] Univers 14:00:00 15:07:31 RUDDY ity [facility] 2022-11-09 2022-11-09 Telemedici [facility] 1.2.840.114 [id number] Univers 14:00:00 15:07:31 ne Visit Ruddy HELEN 350.1.13.10 ity of [place] [id number] [address] 2022-08-19 2022-08-19 Extruding Press Operator Only, Ang Db Test [facility] 1.2.8 40.114 [id number] Univers 09:30:00 09:44:17 Visit Unknown, Attending HEALTH 350.1.13.10 ity of Eduarda Mccollum 4.2.7.2.686 [place] CATERINA?BLEA [phone] [address] OFFICE [facility] 2022-08-19 2022-08-19 Outpatient R CANDY, [facility] [id number] Univers 09:30:00 09:30:00 [facility]22-08-19 2022-08-19 Outpatient R ZEYNEP, [facility] [id number] Univers 09:15:00 09:15:00 ATTENDING ity [facility] 2022-08-17 2022-08-17 Nurse Nurse, [facility] 1.2.840.114 [id number] Univers 09:40:00 09:40:00 Visit Derik Vikas CERVANTES 350.1.13.1 0 ity of [place] [phone] Dc maile [place] [address] Branch [facility] 2022-08-17 2022-08-17 Outpatient R DERIK, VIKAS [facility] [id number] Univers 09:40:00 09:22:13 [facility]AS [facility] 2022-08-17 2022-08-17 Telephone Derik [facility] 1..840.114 [id number] Univers 00:00:00 00:00:00 Vikas CERVANTES 350.1.13.10 ity of [place] [id number] [address] 2022-08-17 2022-08-17 Telephone Derik [facility] 1.2.840.114 [id number] Univers 00:00:00 00:00:00 Vikas CERVANTES 350.1.13.10 ity of [place] [id number] [address] 2022-03-17 2022-03-17 Laboratory Only, [facility] Pob2 Test [facility] 1.2 .840.114 [id number] Univers 15:00:00 15:15:00 Only Baron Ruiz 350.1.13 .10 ity of [place] [phone] Dc dical [address] 2022-03-17 2022-03-17 Outpatient R JOSEPH [facility] [id number] Univers 15:00:00 08:47:55 BARON greco [facility] 2022-03-16 2022-03-16 Outpatient R JOSEPH [facility] [id number] Univers 08:00:00 08:50:32 BARON greco [facility] 2022-03-16 2022-03-16 Extruding Press Operator Only, Adc Pob2 Test [facility] 1.2 .840.114 [id number] Univers 08:00:00 08:15:00 Visit Baron Ruiz 350.1.13 .10 ity of [place] [phone] [address] 2022-02-17 2022-02-17 Laboratory Only, Adc Pob2 Test [facility] 1.2 .840.114 [id number] Univers 15:15:00 15:30:00 Only Baron Ruiz 350.1.13 .10 ity of [facility] 4.2.7.2.[place] [phone] Dc dic[address] 2022-02-17 2022-02-17 Outpatient R JOSEPH [facility] [id number] Univers 15:15:00 09:18:02 BARON angel [facility] 2021-08-25 2021-08-25 Laboratory Only, Adc Pob2 Test [facility] 1.2 .840.114 [id number] Univers 14:30:00 14:45:00 Only Baron Ruiz 350.1.13 .10 ity of [place].2.[place] [phone] [address] 2021-08-25 2021-08-25 Outpatient R JOSEPH [facility] [id number] Univers 14:30:00 12:06:35 BARON angel [facility] 2021-04-18 2021-04-18 Telemedici Bridgett [facility] 1.2.840.114 [id number] Univers 17:12:12 17:32:12 ne Visit Lexy Cervantes 350.1.13.10 ity of [place] [phone] [address] 2021-04-18 2021-04-18 Outpatient R BRIDGETT [facility] [id number] Univers 14:00:00 14:00:[address] [facility] 2021-04-18 2021-04-18 [facility] [id number] Univers 14:00:00 14:00:[address] [facility] 2021-04-15 2021-04-15 [facility] [id number] Univers 15:10:00 15:10:00 [facility] 2021-03-24 2021-03-24 Outpatient [facility] [id number] Univers 15:50:00 15:50:00 [facility] 2021-03-07 2021-03-[address] [facility] 1.2.438.521 [id number] Univers 00:00:00 00:00:00 Claritza A Health 350.1.13.10 i ty of [place] 4.2.7.2.686 [place] as Professio [phone] [address] One 2021-03-07 2021-03-07 [facility]phone [facility] 1.2.313.438 [id number] Univers 00:00:00 00:00:00 Claritza A Health 350.1.13.10 i ty of [place] 4.2.7.2.686 [place] Professio [phone] [facility] nal [address] [place] [address] One 2021-03-07 2021-03-07 Telephone [facility] 1.2.840.114 [id number] Univers 00:00:00 00:00:00 Fam Pob I Health 350.1.13.10 ity of [place] 4.2.7.2.686 [place] Professio [phone] Me dical nal [address] [place] [address] One 2021-03-05 2021-03-05 [address] [facility] [id number] Univers 16:40:00 16:40:00 CLARITZA ity of [facility] 2021-03-05 2021-03-05 Laboratory Lab, Adc Fam Pob I [facility] 1.2. 840.114 [id number] Univers 14:48:22 15:08:22 Only Claritza Farris [facility] 350.1.13.10 ity of [place] 4.2.7.2.686 [place] Professio [phone] [address] Office Building One 2021-02-24 2021-02-24 [facility] [id number] Univers 17:12:55 23:59:00 Encounter Torri Cervantes 350.1.13.10 ity of [place] [id number] [facility] [address] [place] 2021-02-24 2021-02-24 Outpatient R [facility] [id number] Univers 00:00:00 00:00:00 TORRI ity o f [facility] 2021-02-24 2021-02-24 Orders Doctor HOLLY 1.2.840.114 [id number] Univers 00:00:00 00:00:00 Only Unassigned, LEA 350.1.13.10 ity of [place] [facility] 4.2.7.2.686 [place] as [phone] [facility] [address] [place] 2021-02-19 2021-02-19 Outpatient R [facility] [id number] Univers 16:30:00 16:30:00 TORRI ity o f [facility] 2021-02-19 2021-02-19 Telemedici [facility] 1.2.840.114 [id number] Univers 09:17:36 15:17:21 ne Visit Torri Cervantes 350.1.13.10 ity of [place]2.[place].2.[place] [facility] [phone] [place] [address] Branch [facility] 2020-12-02 2020-12-02 [facility] 1.2.840.114 [id number] Univers 09:09:55 23:59:00 Encounter Ashley A Helen 350.1.13.10 ity of [place]2.7.2.[place] [phone] [facility] [address] [place] 2020-12-02 2020-12-02 [facility] [id number] Univers 00:00:00 00:00:00 ASHLEY ity of [facility] 2020-12-02 2020-12-02 [facility] 1.2.840.114 [id number] Univers 00:00:00 00:00:00 Management Ashley A Helen 350.1.13.10 ity of [place] [facility] [phone] [facility] [address] [facility] 2020-09-18 2020-09-18 Outpatient R [facility] [id number] Univers 15:00:00 15:00:00 CLARITZAJAMIL greco [facility] 2020-09-18 2020-09-18 Laboratory Lab, [facility] 1.2. 840.114 [id number] Univers 08:13:46 08:33:46 Only Claritza [facility] 350.1.13.10 ity of [place] 4.2.7.2.686 [place] as Professio [phone] [facility] [address] [place] Office [facility] One 2020-07-10 2020-07-10 Extruding Press Operator Lab, [facility] I [facility] 1.2. 840.114 [id number] Univers 11:47:22 12:07:22 Visit Claritza [facility] 350.1.13.10 ity of [place] 4.2.7.2.686 [place] as Professio [phone] [facility] 044 [facility] 2020-07-10 2020-07-10 [address] [facility] [id number] Univers 11:40:00 11:40:00 CLARITZA greco [facility] 2020-02-25 2020-02-25 Telephone HOLLY Farris [id number] [facility] 00:00:00 00:00:00 Claritza Mitesh LEA 350.1.13.10 i ty [facility] 4.2.7.2.686 [place] as [phone] [address] 2020-02-25 2020-02-25 Telephone HOLLY Farris 1.2.383.209 [id number] 00:00:00 00:00:00 Claritza OTEROY 350.1.13.10 [facility] 4.2.7.2.686 [id number] 2020-02-23 2020-02-23 Urgent Pob1, Acute Care Clinic [facility] 1. 2.840.114 [id number] [facility] 09:48:47 10:24:57 Care Sarah, [facility] Health 350.1.13.10 ity of [place] 4.2.7.2.686 [place] as Professio [phone] [address] Office [facility] 2020-02-23 2020-02-23 Urgent Pob1, Acute [facility] 1.2.840.114 [id number] 09:48:47 10:24:57 Care Care Clinic Health 350.1.13.10 [place] 4.2.7.2.686 Professio [phone] [place] [address] Office [facility] 2020-02-23 2020-02-23 Outpatient R SARAH, [facility] [id number] [facility] 10:20:00 10:20:00 PARISA itangel [facility] 2020-02-01 2020-02-02 Urgent Provider, [facility] 1.2.840.114 [id number] [facility] 15:19:08 09:58:50 Care Kaleigh, Claritza A Health 350.1.13.10 ity of [place] 4.2.7.2.686 [place] as Professio [phone] [address] Office [facility] 2020-02-01 2020-02-02 Urgent Provider, [facility] [id number] [id number] 15:19:08 09:58:50 Care [facility] 350.1.13.10 Care [place] 4.2.7.2.686 Professio [phone] nal [address] Office Building One 2020-02-01 2020-02-01 Outpatient Bekah FARRIS, [facility] [id number] Univers 15:40:00 15:40:00 CLARITZA greco [facility] 2019-11-22 2019-11-22 Outpatient Raju_P MM[facility] [id number] [place] 04:53:00 04:53:00 0325 [facility] Results Test Description Test Time Test Comments Results Result Comments Source POCT SARS-COV-2 ANTIGEN (BINAX NOW) 2022-08-19 15:51:00 Test Item Value Reference Range Interpretation Comme nts POCT SARS-COV-2 ANTIGEN (test code = 14261-2) Not Detected Not Dete cted On board controls acceptable with C Line (test code = Yes 3574) Lab Interpretation (test code = 10984-0) Normal [facility] [id number] 16:26:10No acute cardiopulmonary disease. CHEST 2 VIEWS: HISTORY:pain in upper chest with breathing and decreased breath sounds inRLL, also pain in RLL. TECHNIQUE:: ?PA and lateral views of the chest are obtained. FINDINGS: The lungs are clear. The heart size and mediastinal silhouetteare normal. No pleural effusion or pneumothorax is seen. Possibly an old fracture of the right seventh rib laterally. [facility], Radiant Results Inft User - 12/02/2020 [...] the right seventh rib laterally.IMPRESSIONNo acute cardiopulmonary disease.[facility] (MOLECULAR)2020-02-23 15:36:00 Test Item Value Reference Range Interpretation Comments POCT GP A STREP (test code = neg Negative - Negative 54750-1) [facility]
[2023-05-19] MEDS ORDERED: dexAMETHasone 10 MG/ML VIAL ONE (14:28)
[2023-05-19] MEDS ORDERED: CYCLOBENZAPRINE 10 MG TAB ONE (14:28)
[2023-05-19] MEDS ORDERED: KETOROLAC 30 MG/ML INJ ONE (14:28)
[2023-05-19 14:39] LABS: Specific Gravity > 1.030 (1.005-1.030); Urine Bacteria <20 /HPF (<20); Urine Bilirubin NEGATIVE (Negative); Urine Blood Negative (Negative); Urine Clarity Turbid (Clear); Urine Color Light-Yellow (Yellow); Urine Glucose NEGATIVE (Negative); Urine Mucus 1+ /HPF (None Seen); Urine Protein TRACE (Negative); Urine RBC <5 /HPF (None Seen); Urine Urobilinogen Normal (Normal); Urine pH 6.5 (5.0-7.0)
--- NOTE | 2023-05-19 15:58 | RAD REPORT ---
EXAM DESCRIPTION: RAD - Lumbar Spine 3 Views - 05/19/2023 3:21 pm CLINICAL HISTORY: PAIN COMPARISON: LUMBAR SPINE 3 VIEWS dated 03/19/2014 TECHNIQUE: Lumbar spine, 3 views. FINDINGS: Lumbar vertebral bodies are normal in height and alignment. No fracture or acute bony proc ess seen. No disc space narrowing. No other significant findings. IMPRESSION: Negative Lumbar Spine examination.
--- NOTE | 2023-05-19 16:04 | EDPHYS ---
Physician Documentation [facility] Name: Melissa Jacobson Age: 27 yrs Sex: Female : 1995 Arrival Date: 05/19/2023 Time: 12:32 Bed 14 Private MD: ED Physician Shahnaz Villalba HPI: 05/19 18:36 This 27 yrs old Female presents to ER via Ambulatory with complaints of Back sb4 Pain - Mid. 18:36 The patient presents with pain that is acute, with no known mechanism of injury. The sb4 symptoms are located in the right mid back and right low back. 18:36 Onset: The symptoms/episode began/occurred 3 day(s) ago. The pain radiates to the sb4 buttocks. Associated signs and symptoms: The patient has no apparent associated signs or symptoms. The problem was sustained without known cause. Modifying factors: The patient symptoms are alleviated by nothing, the patient symptoms are aggravated by any movement. The patient has experienced a previous episode, but today's symptoms are worse. The patient has not recently seen a physician. Historical: - Allergies: 12:59 No Known Allergies; ph - PMHx: 12:59 None; ph - Immunization history:: Adult Immunizations up to date. - Social history:: Smoking status: Patient denies any tobacco usage or history of. ROS: 18:36 Constitutional: Negative for fever, chills, and weight loss, sb4 18:36 Back: Positive for pain at rest, pain with movement, radiated pain, 18:36 All other systems are negative, Exam: 18:36 Constitutional: This is a well developed, well nourished patient who is awake, alert, sb4 and in no acute distress. Head/Face: Normocephalic, atraumatic. Eyes: Extra-ocular motions intact. Periorbital areas with no swelling, redness, or edema. ENT: Mucous membranes moist. MS/ Extremity: Pulses equal, no cyanosis. Neurovascular intact. Full, normal range of motion. Psych: Awake, alert, with orientation to person, place and time. Behavior, mood, and affect are within normal limits. 18:36 Back: pain, that is mild, of the right mid back, ROM is painful, with all movement, normal spinal alignment noted, CVA tenderness, is absent, muscle spasm, is not present, Straight leg raises: of both lower extremities does not illicit pain, 18:36 Neuro: Exam negative for acute changes, focal neuro deficits, motor deficits, sensory deficits, Vital Signs: 12:55 BP 147 / 92; Pulse 97; Resp 18; Temp 99; Pulse Ox 99% on R/A; Weight 115.67 kg; Height ph 5 ft. 4 in. ; 12:55 Body Mass Index 43.77 (115.67 kg, 162.56 cm) ph MDM: 12:57 Patient medically screened. sb4 18:36 Differential diagnosis: arthritis, Fracture Joint Injury Ligament Injury Obesity sb4 Osteoarthritis Pyelonephritis ruptured disc, spinal injury, vertebral fracture. Data reviewed: vital signs, nurses notes, lab test result(s), radiologic studies, and as a result, I will discharge patient. Care significantly affected by the following chronic conditions: Obesity. Counseling: I had a detailed discussion with the patient and/or guardian regarding the historical points, exam findings, and any diagnostic results supporting the discharge/admit diagnosis, lab results, radiology results, to return to the emergency department if symptoms worsen or persist or if there are any questions or concerns that arise at home. 05/19 14:12 Order name: UAM; Complete Time: 14:42 sb4 05/19 14:12 Order name: Test, Urine; Complete Time: 14:42 sb4 05/19 14:12 Order name: Lumbar Spine (3 Views) XRAY; Complete Time: 15:59 sb4 Administered Medications: 14:25 Drug: Ketorolac IM 30 mg IM once Route: IM; Site: right deltoid; kc6 16:04 Follow up: Response: No adverse reaction; Pain is unchanged, physician notified 6 14:25 Drug: Cyclobenzaprine PO 10 mg PO once Route: PO; kc6 16:04 Follow up: Response: No adverse reaction 6 14:25 Drug: Dexamethasone IM 10 mg IM once Route: IM; Site: left deltoid; kc6 16:04 Follow up: Response: No adverse reaction kc6 Disposition Summary: 05/19/23 16:04 Discharge Ordered Notes: Location: Home sb4 Problem: new sb4 Symptoms: have improved sb4 Condition: Stable sb4 Diagnosis - Low back pain sb4 Followup: sb4 - With: Private Physician - When: As needed - Reason: Recheck today's complaints, Continuance of care, Re-evaluation by your physician Discharge Instructions: - Discharge Summary Sheet sb4 - Acute Back Pain, Adult sb4 - Pain Without a Known Cause sb4 Forms: - Work release form sb4 - Medication Reconciliation Form sb4 - Thank You Letter sb4 - Antibiotic Education sb4 - Prescription Opioid Use sb4 - Patient Portal Instructions sb4 - Leadership Thank You Letter sb4 Prescriptions: - Diclofenac Sodium 75 mg Oral Tablet Sustained Release - take 1 tablet ORAL route 2 times per day; 30 tablet; Refills: 0, Product sb4 Selection Permitted - Cyclobenzaprine 5 mg Oral Tablet - take 1 tablet ORAL route 3 times per day As needed; 15 tablet; Refills: 0, sb4 Product Selection Permitted Signatures: Dispatcher [employer] Екатерина Mills, RN RN Patricia Castro RN RN kc6 Deandra Huitron, ILSA ROSENBAUM sb4
--- NOTE | 2023-05-19 16:04 | ER ---
Nurse's Notes [facility] Name: Melissa Jacobson Age: 27 yrs Sex: Female : 1995 Arrival Date: 05/19/2023 Time: 12:32 Bed 14 Private MD: Diagnosis: Low back pain Presentation: 05/19 12:55 Chief complaint: Patient states: Low back pain that radiates to R buttock, started, " a ph few a days ago" , denies urinary symptoms. Coronavirus screen: Vaccine status:. Ebola Screen: No symptoms or risks identified at this time. Initial Sepsis Screen: Does the patient meet any 2 criteria? No. Patient's initial sepsis screen is negative. Does the patient have a suspected source of infection? No. Patient's initial sepsis screen is negative. Risk Assessment: Do you want to hurt yourself or someone else? Patient reports no desire to harm self or others. Onset of symptoms was May 19, 2023. 12:55 Method Of Arrival: Ambulatory ph 12:55 Acuity: FLAVIO 4 ph Historical: - Allergies: 12:59 No Known Allergies; ph - PMHx: 12:59 None; ph - Immunization history:: Adult Immunizations up to date. - Social history:: Smoking status: Patient denies any tobacco usage or history of. Screenin:25 [facility] ED Fall Risk Assessment (Adult) History of falling in the last 3 months, kc6 including since admission No falls in past 3 months (0 pts) Confusion or Disorientation No (0 pts) Intoxicated or Sedated No (0 pts) Impaired Gait No (0 pts) Mobility Assist Device Used No (0 pt) Altered Elimination No (0 pt) Score/Fall Risk Level 0 - 2 = Low Risk. Abuse screen: Denies threats or abuse. Denies injuries from another. Nutritional screening: No deficits noted. Tuberculosis screening: No symptoms or risk factors identified. Assessment: 14:26 General: Appears in no apparent distress. comfortable, obese, well groomed, Behavior is kc6 calm, cooperative, appropriate for age. Pain: Complains of pain in back and buttocks. Neuro: Level of Consciousness is awake, alert, obeys commands, Oriented to person, place, time, situation, Appropriate for age. Cardiovascular: Capillary refill < 3 seconds. Respiratory: Airway is patent Trachea midline Respiratory effort is even, unlabored, Respiratory pattern is regular, symmetrical. GI: No signs and/or symptoms were reported involving the gastrointestinal system. : No signs and/or symptoms were reported regarding the genitourinary system. EENT: No signs and/or symptoms were reported regarding the EENT system. Derm: No signs and/or symptoms reported regarding the dermatologic system. Skin is intact, is healthy with good turgor, Skin is pink, warm \\T\\ dry. Musculoskeletal: No signs and/or symptoms reported regarding the musculoskeletal system. Circulation, motion, and sensation intact. Capillary refill < 3 seconds, Range of motion: intact in all extremities. 15:26 Reassessment: Patient appears in no apparent distress at this time. No changes from kc6 previously documented assessment. Patient and/or family updated on plan of care and expected duration. Pain level reassessed. Vital Signs: 12:55 BP 147 / 92; Pulse 97; Resp 18; Temp 99; Pulse Ox 99% on R/A; Weight 115.67 kg; Height ph 5 ft. 4 in. ; 12:55 Body Mass Index 43.77 (115.67 kg, 162.56 cm) ph ED Course: 12:36 Patient arrived in ED. mg5 12:45 Deandra Huitron PA-C is PHCP. sb4 12:45 Shahnaz Villalba is Attending Physician. sb4 12:59 Triage completed. ph 12:59 Arm band placed on right wrist. Patient placed in waiting room, Patient notified of ph wait time. 14:10 Patricia Matos, RN is Primary Nurse. kc6 14:26 Patient has correct armband on for positive identification. Bed in low position. Call kc6 light in reach. Side rails up X 1. Client placed on continuous cardiac and pulse oximetry monitoring. NIBP monitoring applied. 15:23 Lumbar Spine (3 Views) XRAY In Process Unspecified. EDMS 16:37 No provider procedures requiring assistance completed. Patient did not have IV access kc6 during this emergency room visit. Administered Medications: 14:25 Drug: Ketorolac IM 30 mg IM once Route: IM; Site: right deltoid; kc6 16:04 Follow up: Response: No adverse reaction; Pain is unchanged, physician notified kc6 14:25 Drug: Cyclobenzaprine PO 10 mg PO once Route: PO; kc6 16:04 Follow up: Response: No adverse reaction kc6 14:25 Drug: Dexamethasone IM 10 mg IM once Route: IM; Site: left deltoid; kc6 16:04 Follow up: Response: No adverse reaction kc6 Medication: 16:37 VIS not applicable for this client. kc6 Outcome: 16:04 Discharge ordered by . sb4 16:37 Discharged to home ambulatory, kc6 16:37 Condition: stable 16:37 Discharge instructions given to patient, Instructed on discharge instructions, follow up and referral plans. medication usage, Demonstrated understanding of instructions, follow-up care, medications, Prescriptions given X 2, 16:37 Patient left the ED. kc6 Signatures: Dispatcher [employer] EDЕкатерина Garcia RN RN ph Campbell, Kaitlyn, RN RN kc6 Deandra Huitron, PA-C PA-C sb4 Roxanna Vogt 5
[2023-05-19 16:54] VITALS: BP 147/92; TEMP 99; O2SAT 99
== END 2023-05-19 16:37 | disposition home or self-care (01) ==
LOC: ER 12:32
DX: M54.50 Low back pain, unspecified (principal)
CPT/HCPCS: 81001; 81025; 72100; J1100